=== PATIENT | female | born 1960 | race Caucasian/White ===

== ENCOUNTER 2021-03-26 12:32 | Emergency (ER) | payer OTHER ==
--- OUTSIDE RECORDS SUMMARY | 2021-03-26 12:38 | XMS REPORT | Continuity of Care Document ---
:1960 Author Organization [facility] t Address [address] [place] [address] Care Team Providers Name Role Phone Rosita Hung MD Primary Care Physician Steven Hull Attending Clinician ROSE Attending Clinician Unavailable Christ BUCKLEY Attending Clinician Unavailable Christ BUCKLEY Admitting Clinician Unavailable Payers Payer Name Policy Type Policy Number Effective Date Expiration Date S ource Problems Condition Condition Condition Status Onset Resolution Last Treating Co mments Source Name Details Category Date Date Treatment Clinician Date Other Other Disease Active [facility] hyper[facility]id hyperlipid 2-21 Charlene kes - emia emia 00:00: Medical 00 Hurt Pulmonary Pulmonary Disease Active [facility] HTN HTN 2- [facility] 00 Hurt Ex-smoker Ex-smoker Disease Active [facility] 2[facility]21 [facility] 00:[facility]: Medical 00 Hurt Anxiety Anxiety Disease Active [facility] 00 Center COPD COPD Disease Active [facility] (chronic (chronic 2- [facility] - obstructiv obstructiv 00:00: Me dical e e 00 Center pulmonary pulmonary disease) disease) Coronary Coronary Disease Active Overview: [facility] artery artery 2-09 S/p PCI [facility] - disease disease 00:00: stent to Medica l involving involving 00 RCA X Cent [place] 2(12/20/17[place] coronary coronary artery of artery of [place] heart with heart with unstable unstable angina angina pectoris pectoris Type 2 Type [address] [facility] diabetes diabetes 2- [facility] - mellitus mellitus 00:00: Medica l without without 00 Center complicati complicati on on Aortic Aortic Disease Active Overview: [facility] stenosis, stenosis, 2-05 S/p TAVR Charlene kes - severe severe 00:00: (12/22/17) Medical 00 Center Amnesia Problem Active 2019-07-02 Martinez ryan (finding) 14:05:30 l Amnesia [place] (finding) Active Problem 07/02/2019 [facility] Cerebrovas Problem Active 2019-07-02 M emoria cular 14:05:30 l accident [place] (disorder) Cerebrovas cular accident (disorder) Active Problem 07/02/2019 [facility] Depressive Problem Active 2019-07-02 M emoria disorder 14:05:30 l (disorder) Kelvin n Depressive disorder (disorder) Active Problem 07/02/2019 [facility] Diabetes Problem Active 2019-07-02 Mem oria mellitus 14:05:30 l type 2 Diabetes Kelvin n (disorder) mellitus type 2 (disorder) Active Problem 07/02/2019 [facility] Simple Problem Active 2019-07-02 Memor ia obesity 14:05:30 l (disorder) Simple Herm marylin obesity (disorder) Active Problem 07/02/2019 [facility] Allergies, Adverse Reactions, Alerts Allergy Allergy Status Severity Reaction(s) Onset Inactive Treating Comm ents Source Name Type Date Date Clinician codegraham DA Active [facility] 07-16 Clear 00:00: [place] 00 [facility] cortison DA Active [facility] e 07-16 Clear 00:00: [place] 00 [facility] No Known DA [facility] Allergie 4-29 Clear s 00:00: [place] 00 [facility] Codeine Propensi Active Hives [facility] ty to 2-05 [facility] - adverse 00:00: Medical reaction 00 Center s Hydrocor Propensi Active Hives [facility] tisone ty to 2-05 [facility] - adverse 00:00: Medical reaction 00 Center s Hydrocor Adverse Active rash [facility] tisone Reaction [facility] codeine codeine Active [facility] [place] hydrocor hydrocor Active Memori a tisone tisone l [place] Social History Social Habit Start Date Stop Date Quantity Comments Source Sex Assigned At [facility] britt - [facility] Cigarettes smoked 2018-01-17 2018-01-17 [facility] britt - current (pack per 00:00:00 00:00:00 Medical Center day) - Reported Tobacco use and 2018-01-17 2018-01-17 Never used [facility] Charlene de la torre - exposure 00:00:00 00:00:00 [facility] Alcohol intake 2018-01-17 2018-01-[address] [facility] [address] [place] es - 00:00:00 00:00:00 non-drinker of Medical Ce nter alcohol (finding) Smoking Status Start Date Stop Date Source Social History 2018-09-13 14:54:09 2018-09-13 14:54:09 [facility] [place] Current every day 2018-01-17 [facility] Medications Ordered Filled Start Stop Current Ordering Indication Dosage Frequency Signature Comments Components Source Medication Medication Date Date Medication? Clinician (SIG) Name Name Gabapentin Gabapentin Yes Anastasiia [address] [facility] 8-12 [place] as needed [facility] - 00:00: for pain [facility] Alendronate Alendronate 2020- No Anastasiia [address] [facility] Sodium Sodium 2-13 05-09 [place] 30 minutes [facility] - 00:00: 00:00 before the Memori a 00 :00 first l food, Outpati beverage ent or Clinics medicine of the day with plain water gabapentin 2017-11 Yes 100 mg = 1 M emoria 100 MG Oral 1-01 cap, PO, l Capsule 14:57: TID, # 90 Victorina nn 00 cap, 1 Refill(s) Lorazepam 2017-11 No See Memoria 0.5 MG Oral 0-11 Instructio l Tablet 14:36: ns, 1 tab Kelvin n [Ativan] 00 PO 1h prior to mri may repeat q15min if still anxious, # 5 tab, 0 Refill(s), called to pharmacy metFORMIN 2017-0 Yes 1000mg Take 1,[address] [facility] (GLUCOPHAGE 3-06 mg by [facility] - ) 1000 MG 08:40: mouth 2 Medic al tablet 58 (two) Center times daily with breakfast and dinner. clonazePAM 2018-0 Yes .5mg QD Take 0.[address] [facility] (KLONOPIN) 3-06 mg by [facility] - 0.5 MG 08:40: mouth Medical tablet 58 daily. Center clonazePAM 2017-0 Yes 1mg QD Take [address] (KLONOPIN) 3-06 by mouth [facility] - 1 MG tablet 08:40: nightly. Va dical 58 Center aspirin 81 2017-0 Yes 81mg QD Take [address] MG EC 3-06 by mouth [facility] - tablet 08:40: daily. Medical 58 Center fluticasone 2017-0 Yes 1{spray [address] [facility] (FLONASE) 3-06 } Nasal [facility] - 50 08:40: route as Medical mcg/actuati 58 needed for Ce nter on nasal Rhinitis. spray pantoprazol 2017-0 Yes 40mg Take [address] [facility] e 3-06 by mouth [facility] - (PROTONIX) 08:40: as needed. M edical 40 MG 58 Center tablet DULoxetine 2017- Yes 30mg QD Take [address] (CYMBALTA) 3-06 by mouth [facility] - 30 MG 08:40: daily. Medical capsule 58 Center DULoxetine 2017-0 Yes 60mg QD Take [address] (CYMBALTA) 3-06 by mouth [facility] - 60 MG 08:40: nightly. Medical capsule 58 Center atorvastati 2017-0 Yes 20mg QD Take [address] [facility] n (LIPITOR) 3-06 by mouth Luke s - 20 MG 08:40: daily. Medical tablet 58 Center sulfamethox 2017-0 Yes 1{tbl} Q.5D Take [address] azole-trime 3-06 tablet by Matias es - thoprim 08:40: mouth 2 Medical (BACTRIM 58 (two) Center DS) 800-160 times mg per daily. tablet Ferrous Ferrous Yes Anastasiia [address] Sulfate Sulfate 3-05 Millender Luke s - 00:00: [facility] Protonix Protonix Yes Anastasiia [address] [facility] 3-05 Mill[facility] - 00:[facility]: [facility]ics tamsulosin Yes .4mg Q.5D Take 1 [facility] (FLOMAX) 2-14 capsule [facility] - 0.4 mg Cp24 00:00: (0.4 mg Med ical 24 hr 00 total) by Center capsule mouth 2 (two) times daily. Cymbalta Cymbalta Yes Anastasiia [address] Mill[facility] Cymbalta Cymbalta Yes Anatsasiia [address] Millender [facility] Clonazepam Clonazepam Yes Anastasiia [address] [facility] Millender at bedtime [facility] Tylenol Tylenol Yes Anastasiia [address] [facility] Millender [facility] BusPIRone BusPIRone Yes Anastasiia as [facility] HCl HCl [facility] directed [facility] Fluticasone Fluticasone Yes Anastasiia [address] [address] Propionate Propionate Millender in each [facility] - nostril [facility] Metformin Metformin Yes Anastasiia [address] [facility] HCl HCl Millender with meals [facility] -81 Aspir-81 Yes Anastasiia [address] Millender (otc) [facility] Lipitor Lipitor Yes Anastasiia [address] [facility] Millender in [facility] - eveningy [facility] Amlodipine Amlodipine Yes Anastasiia [address] [facility] Besylate Besylate Millender Charlene kes - [facility] Queen Queen Yes Anastasiia [address] [facility] Millender as needed [facility] Avapro Avapro Yes Anastasiia [address] [facility] Millender [facility] Plavix Plavix Yes Anastasiia [address] [facility] Millender [facility] Ferrous Ferrous Yes Anastasiia [address] [facility] Sulfate Sulfate Millender [facility] Vital Signs Vital Name Observation Time Observation Value Comments Source BMI Calculated 2018-09-13 14:52:00 [facility] [place] Weight 2018-09-13 14:52:00 [facility] [place] Height 2018-09-13 14:52:00 162.56 cm [facility] [place] Systolic (mm Hg) 2018-09-13 14:52:00 Martinez chew [place] Diastolic (mm Hg) 2018-09-13 14:52:00 Mem orial [place] Heart Rate 2018-09-13 14:52:00 [facility] [place] Respitory Rate 2018-09-13 14:52:00 [facility]ori al [place] Procedures This patient has no known procedures. Encounters Start End Encounter Admission Attending Care Care Encounter Source Date/Time Date/Time Type Type Clinicians Facility Department ID 2021-01-27 2021-01-27 Outpatient [facility] [id number] [facility] 2021-01-27 2021-01-27 [facility] [id number] [facility] 2021-01-07 2021-01-07 [facility] [id number] [facility] 2021-01-05 2021-01-05 Outpatient [facility] [id number] [facility] 2020-10-07 2020-10-07 Out[facility] [id number] [facility] 2020-10-05 2020-10-05 Out[facility] [id number] [facility] 2020-09-28 2020-09-28 Outpatient [facility] [id number] [facility] 2020-09-24 2020-09-24 Outpatient [facility] [id number] [facility]00 [facility] Clin[facility] 2020-06-24 2020-06-24 [facility] [id number] [facility] 08:40:00 08:40:00 [facility] Medicine Outpati ent Clinics 2020-01-15 2020-01-15 [facility] [id number] [facility] 09:07:00 09:07:00 [facility] Medicine Outpati ent Clinics 2019-12-26 2019-12-26 [facility] [id number] [facility] 13:15:00 13:15:00 [facility] Medicine Outpati ent Clinics 2019-12-09 2019-12-09 [facility] [id number] [facility] 11:27:00 11:27:00 [facility] Medicine Outpati ent Clinics 2019-11-01 2019-11-01 [facility] [id number] 01:41:00 01:41:00 [facility] Medicine Outpati ent Clinics 2019-10-15 2019-10-15 [facility] [id number] [facility] 09:02:00 09:02:00 [facility] Medicine Outpati ent Clinics 2019-08-27 2019-08-27 [facility] [id number] 09:40:00 09:40:00 [facility] Medicine Outpati ent Clinics 2019-05-27 2019-05-27 [facility] [id number] 10:20:00 10:20:00 [facility] Medicine Outpati ent Clinics 2019-02-25 2019-02-25 [facility] [id number] [facility] 11:00:00 11:00:00 [facility] Medicine Outpati ent Clinics 2019-02-11 2019-02-11 [facility] [id number] [facility] 11:22:00 11:22:00 t [facility] Medicine Medicine Outpati ent Clinics 2018-12-13 2018-12-13 [id number] 09:00:00 09:00:00 Pete 03 Steven 2018-11-26 2018-11-26 [facility] [id number] [facility] 21:09:00 21:09:00 t [facility] Medicine Outpati ent Clinics 2018-11-26 2018-11-26 [facility] [id number] 11:15:00 11:15:00 [facility] Medicine Outpati ent Clinics 2018-11-17 2018-11-18 Out[facility] [id number] 11:01:00 23:59:59 00 2018-09-13 2018-09-13 Outpatient ANASTASIIA [facility] [id number] 09:45:00 23:59:59 Pete Bimal Harris 2018-08-22 2018-08-22 [facility] [id number] 08:57:00 08:57:00 t [facility] Medicine Outpati ent Clinics 2018-08-21 2018-08-21 [facility] [id number] 10:30:00 10:30:00 t [facility] Medicine Outpati ent Clinics 2018-05-22 2018-05-22 [facility] [id number] 11:37:00 11:37:00 t [facility] Medicine Medicine Outpati ent Clinics 2018-05-21 2018-05-21 [facility] [id number] [address] 10:15:00 10:15:00 t [facility] Medicine Outpati ent Clinics 2018-02-20 2018-02-20 [facility] [id number] [address] 19:19:00 19:19:00 t [facility] Medicine Outpati ent Clinics 2018-02-19 2018-02-19 Outpatient [facility] [id number] 10:30:00 10:30:00 [facility] ent Clinics Results Test Description Test Time Test Comments Results Result Comments Source GLUBED 2020-09-14 17:39:00 Test Item Value Reference Range Interpretation Comme nts GLUBED (test code = GLUBED) 118 MG/DL 70-110 H Performed by certified 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 [facility] [id number] 11:44:00 Test Item Value Reference Range Interpretation Comments GLUBED (test code = 115 MG/DL 70-110 H Performe d by certified GLUBED) 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 [facility] Novel Coronavirus 2018 [id number] 23:56:00 Test Item Value Reference Range Interpretation Comments Novel Coronavirus Negative Negative Positive r esults are 2019 Inhouse (test indicativ e of the presence code = COVNONPUI) ofSARS-CoV -2 RNA, clinical correlation wit h patient historyand othe r diagnostic info rmation is necessary to determinepatien t infection status. Positiv e results do not rule out bacterial infection or co -infection with other viru ses. Negative result s do not preclude SARS-C oV-2 infection andsh ould not be used as the cade e basis for patient managementdecis ions. Negative result s must be combined with otherclinical observations, p atient history, and epidemiological information . Detection of SARS-CoV-2 RNA may be affe cted bysample collec tion methods, storag e conditions, and /or stageof infection. Sylvia l RNA mutations, vacc inations, antiviraltherap eutics, antibiotics, chemotherapeuti c orimmunosuppres keiko drugs have not been e valuated for effectson d etection. Results are for the identification of SARS-CoV-2 RNA usingthe Worley M2000 Sy stem under the FDA Emergen cy UseAuthorizatio n. The testing is perf ormed by personneltraine d in the procedures for the Worley M2000 molecular diagnostic SARS-CoV-2 assa y in vitro. BASIC METABOLIC [id number] 10:34:00 Test Item Value Reference Range Interpretation Comments SODIUM (test code = NA) 134 mEq/L 134-147 N POTASSIUM (test code = 4.6 mEq/L 3.4-5.0 N K) CHLORIDE (test code = 102 mEq/L 100-108 N CL) CARBON DIOXIDE (test 23 mEq/L 21-33 N code = CO2) ANION GAP (test code = 13 0-20 N GAP) GLUCOSE (test code = 127 mg/dL 70-110 H GLU) BLOOD UREA NITROGEN 21 mg/dL 7-18 H (test code = BUN) GLOMERULAR FILTRATION 41.5 80-90 L Units of measure = RATE (test code = GFR) ml/mi n/1.73 m2 CREATININE (test code = 1.3 mg/dL 0.6-1.3 N CREAT) CALCIUM (test code = 9.0 mg/dL 8.0-10.5 N CA) PROTHROMBIN [id number] 10:28:00 Test Item Value Reference Range Interpretation Comments PROTHROMBIN TIME 12.1 SECONDS 9.3-12.9 N PATIENT (test code = PTP) INTERNATIONAL NORMAL 1.1 0.8-1.2 N TARGET RATIO (test code = INR BY IN DICATION INR) Indication INR1. Prophyl axis of venous thrombos is 2.0 - 3. 0 (orthopedic javi betty), Prophylaxis of venous thrombos is (other than hig h-risk surgery), Ines tment of Deep Vein Thrombosis/Pulm onary Embolism, Preve ntion of systemic emb olism - Tissue heart va lves, Acute Myocardia l Infarction (to prevent systemic embo lism), Valvular heart disease, Atri al Fibrillation, Bileaflet mecha nical valve in aortic position.2. Mec hanical prosthetic valv es (high risk), 2.5 - 3.5 Presence of Lupus Anticoagu lant or Antiphospholi pid Antibodies, Pre vention of systemic e mbolism - Acute Myocard ial Infarction (t o prevent recurre nt infarct). THROMBOPLASTIN TIME [id number] 10:28:00 Test Item Value Reference Range Interpretation Comments THROMBOPLASTIN TIME 38.5 Seconds 25.0-39.5 N Ther apeutic PARTIAL (test code = Range: 50.4 - 88.3 PTT) Seconds Effective 02/26/2019 CBC W/AUTO [id number] 10:19:00 Test Item Value Reference Range Interpretation Comments WHITE BLOOD CELL (test code = 9.3 x10 3/uL 4.5-11.0 N WBC) RED BLOOD CELL (test code = 3.66 x10 6/uL 3.54-5.02 N RBC) HEMOGLOBIN (test code = HGB) 7.9 g/dL 11.0-15.0 L HEMATOCRIT (test code = HCT) 29.0 % 33.0-45.0 L MEAN CELL VOLUME (test code = 79.2 fL 81.0-99.0 L MCV) MEAN CELL HGB (test code = MCH) 21.6 pg 27.0-33.0 L MEAN CELL HGB CONCETRATION 27.2 g/dL 33.0-37.0 L (test code = MCHC) RED CELL DISTRIBUTION WIDTH CV 19.3 % 11.5-14.5 H (test code = RDW) RED CELL DISTRIBUTION WIDTH SD 55.1 fL 37.0-54.0 H (test code = RDW-SD) PLATELET COUNT (test code = 227 x10 3/uL 150-400 N PLT) MEAN PLATELET VOLUME (test code 10.1 fL 7.0-9.0 H = MPV) NEUTROPHIL % (test code = NT%) 73.2 % 56.0-77.0 N IMMATURE GRANULOCYTE % (test 0.6 % 0.0-2.0 N code = IG%) LYMPHOCYTE % (test code = LY%) 15.8 % 14.0-32.0 N MONOCYTE % (test code = MO%) 6.3 % 4.8-9.0 N EOSINOPHIL % (test code = EO%) 3.3 % 0.3-3.7 N BASOPHIL % (test code = BA%) 0.8 % 0.0-2.0 N NUCLEATED RBC % (test code = 0.0 % 0-0 N NRBC%) NEUTROPHIL # (test code = NT#) 6.79 x10 3/uL 2.0-7.6 N IMMATURE GRANULOCYTE # (test 0.06 x10 3/uL 0.00-0.03 H code = IG#) LYMPHOCYTE # (test code = LY#) 1.47 x10 3/uL 1.0-3.8 N MONOCYTE # (test code = MO#) 0.58 x10 3/uL 0.1-0.8 N EOSINOPHIL # (test code = EO#) 0.31 x10 3/uL 0.0-0.2 H BASOPHIL # (test code = BA#) 0.07 x10 3/uL 0.0-0.2 N NUCLEATED RBC # (test code = 0.00 x10 3/uL 0.0-0.1 N NRBC#) MANUAL DIFF REQUIRED (test code NO = MDIFF) CBC W/AUTO [id number] 10:18:00 Test Item Value Reference Range Interpretation Comments WHITE BLOOD CELL (test code = x10 3/uL 4.5-11.0 WBC) RED BLOOD CELL (test code = RBC) x10 6/uL 3.54-5.02 HEMOGLOBIN (test code = HGB) g/dL 11.0-15.0 HEMATOCRIT (test code = HCT) % 33.0-45.0 MEAN CELL VOLUME (test code = fL 81.0-99.0 MCV) MEAN CELL HGB (test code = MCH) pg 27.0-33.0 MEAN CELL HGB CONCETRATION (test g/dL 33.0-37.0 code = MCHC) RED CELL DISTRIBUTION WIDTH CV % 11.5-14.5 (test code = RDW) PLATELET COUNT (test code = PLT) 227 x10 3/uL 150-400 N NEUTROPHIL % (test code = NT%) % 56.0-77.0 LYMPHOCYTE % (test code = LY%) % 14.0-32.0 NEUTROPHIL # (test code = NT#) x10 3/uL 2.0-7.6 LYMPHOCYTE # (test code = LY#) x10 3/uL 1.0-3.8 MANUAL DIFF REQUIRED (test code = MDIFF) - XR CHEST 2 [id number] 10:06:00 [facility] : 1960 Sex: F FAX: Blake Oconnell MD [phone] [place]: St: PRE FAX: Anastasiia Choi [phone] Name: JAMEY VAZQUEZ [facility] : 1960ge/S: [address] [place] [address] Blvd Unit #: [id number] Loc: [place] [address] Phys: Blake Chandler MD Acct: [id number] Dis Date: Status: PRE NHC PHONE #:[phone] Exam Date: 09/10/2020 0948 FAX #: [phone] Reason: PREOP EXAMS: CPT CODE: [id number] XR CHEST 2 V [id number] EXAM: PA and lateral chest. EXAM DATE: September 10, 2020 CLINICAL HISTORY: PREOP COMPARISON: July 16, 2020 Heart size is within normal limits. Atherosclerotic calcifications and tortuosity of the intrathoracic aorta is identified. Transcatheter aortic valve replacement are identified. Calcified azygous and perihilar lymph nodes are noted. . Calcified granuloma noted in the right lateral lung. The lungs are otherwise unremarkable. Mild elevation of the right hemidiaphragm is unchanged.. Osseous structures demonstrate no acute abnormalities. IMPRESSION: No evidence of acute cardiopulmonary disease. at 1006 Reported and signed by: Connie Felix M.D. CC: Blake Chandler MD; Anastasiia Hung MD Technologist: RT Castillo(R) Trnscrd Date/Time/By: 09/10/2020 (1006) : By: MadeleineCER Orig Print D/T: S: 09/10/2020 (1009) PAGE 1 Signed Report SURGICAL PATH [id number] 20:50:00 RUN DATE: 07/23/20 [facility] *LIVE* PAGE 1 RUN TIME: 2049 Specimen Inquiry RUN USER: INTERFACE PATIENT: JAMEY VAZQUEZ LOC: [place] U #: [id number] AGE/SX: 59/F [place] [facility] [place]20REG DR: Man Santana : 56 BED: 1 DIS: 07/22/20 STATUS: DIS IN TLOC: SPEC #: [id number] RECD: 07/22/20 STATUS: DAMION MORALEZ #: [id number] DALY: 07/22/[address]: Man Santana MD ENTERED: 07/23/20 SP TYPE: SURG SPEC OTHR DR: DOES_NOT KNOW Millender,Anastasiia L MDORDERED: GROSS AND MICRO CODES: [id number] - ARTERY, NOS COPIES TO: DOES_NOT KNOW Man Santana MD [address] [place] [address] [email or web address] Anastasiia Hung MD [address] [facility] [address] [place] [address] PROCEDURES: GROSS AND MICRO (Incomplete) TISSUES: 1. ARTERY, NOS - Artery, left common femoral, plaque, seg FINAL DIAGNOSIS Artery, left common femoral, plaque, segment: Fibrous atherosclerotic plaque with calcifications. GROSS AND MICROSCOPIC GROSS DESCRIPTION: Received in formalin and labeled "plaque"is one irregular fragment of atherosclerotic material measuring 3.5 x 0.7 x 0.5 cm. Instrument Installer sections after decal . MICROSCOPIC EXAMINATION: The fibrous material contains cholesterol clefts and focal calcifications. POST-OP DIAGNOSIS Peripheral vascular disease CONTINUED ON NEXT PAGE RUN DATE: 07/23/20 [facility] *LIVE* PAGE 2 RUN TIME: 2049 Specimen Inquiry RUN USER: INTERFACE SPEC #: [id number] PATIENT: JAMEY VAZQUEZ #[id number] (Continued) PRE-OP DIAGNOSIS Peripheral vascular disease Signed SIGNATURE ON FILE David Garcia MD 07/23/202049 END OF REPORT BASIC METABOLIC [id number] 15:43:00 Test Item Value Reference Range Interpretation Comments SODIUM (test code = NA) 136 mEq/L 134-147 N POTASSIUM (test code = 4.3 mEq/L 3.4-5.0 N K) CHLORIDE (test code = 101 mEq/L 100-108 N CL) CARBON DIOXIDE (test 27 mEq/L 21-33 N code = CO2) ANION GAP (test code = 13 0-20 N GAP) GLUCOSE (test code = 189 mg/dL 70-110 H GLU) BLOOD UREA NITROGEN 19 mg/dL 7-18 H (test code = BUN) GLOMERULAR FILTRATION 45.7 80-90 L Units of measure = RATE (test code = GFR) ml/mi n/1.73 m2 CREATININE (test code = 1.2 mg/dL 0.6-1.3 N CREAT) CALCIUM (test code = 9.2 mg/dL 8.0-10.5 N CA) [id number] 12:58:00 Test Item Value Reference Range Interpretation Comments GLUBED (test code = 111 MG/DL 70-110 H Performe d by certified GLUBED) 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 [facility] BASIC METABOLIC [id number] 04:08:00 Test Item Value Reference Range Interpretation Comments SODIUM (test code = NA) 138 mEq/L 134-147 N POTASSIUM (test code = 5.1 mEq/L 3.4-5.0 H K) CHLORIDE (test code = 105 mEq/L 100-108 N CL) CARBON DIOXIDE (test 25 mEq/L 21-33 N code = CO2) ANION GAP (test code = 13 0-20 N GAP) GLUCOSE (test code = 113 mg/dL 70-110 H GLU) BLOOD UREA NITROGEN 16 mg/dL 7-18 N (test code = BUN) GLOMERULAR FILTRATION 45.7 80-90 L Units of measure = RATE (test code = GFR) ml/mi n/1.73 m2 CREATININE (test code = 1.2 mg/dL 0.6-1.3 N CREAT) CALCIUM (test code = 8.9 mg/dL 8.0-10.5 N CA) CBC W/AUTO [id number] 03:55:00 Test Item Value Reference Range Interpretation Comments WHITE BLOOD CELL (test code = 7.73 x10 3/uL 4.5-11.0 N WBC) RED BLOOD CELL (test code = 3.77 x10 6/uL 3.54-5.02 N RBC) HEMOGLOBIN (test code = HGB) 8.6 g/dL 11.0-15.0 L HEMATOCRIT (test code = HCT) 30.3 % 33.0-45.0 L MEAN CELL VOLUME (test code = 80.4 fL 81.0-99.0 L MCV) MEAN CELL HGB (test code = MCH) 22.8 pg 27.0-33.0 L MEAN CELL HGB CONCETRATION 28.4 g/dL 33.0-37.0 L (test code = MCHC) RED CELL DISTRIBUTION WIDTH CV 18.5 % 11.5-14.5 H (test code = RDW) RED CELL DISTRIBUTION WIDTH SD 54.2 fL 37.0-54.0 H (test code = RDW-SD) PLATELET COUNT (test code = 170 x10 3/uL 150-400 N PLT) MEAN PLATELET VOLUME (test code 10.1 fL 7.0-9.0 H = MPV) NEUTROPHIL % (test code = NT%) 73.0 % 56.0-77.0 N IMMATURE GRANULOCYTE % (test 0.5 % 0.0-2.0 N code = IG%) LYMPHOCYTE % (test code = LY%) 15.3 % 14.0-32.0 N MONOCYTE % (test code = MO%) 8.0 % 4.8-9.0 N EOSINOPHIL % (test code = EO%) 2.6 % 0.3-3.7 N BASOPHIL % (test code = BA%) 0.6 % 0.0-2.0 N NUCLEATED RBC % (test code = 0.0 % 0-0 N NRBC%) NEUTROPHIL # (test code = NT#) 5.64 x10 3/uL 2.0-7.6 N IMMATURE GRANULOCYTE # (test 0.04 x10 3/uL 0.00-0.03 H code = IG#) LYMPHOCYTE # (test code = LY#) 1.18 x10 3/uL 1.0-3.8 N MONOCYTE # (test code = MO#) 0.62 x10 3/uL 0.1-0.8 N EOSINOPHIL # (test code = EO#) 0.20 x10 3/uL 0.0-0.2 N BASOPHIL # (test code = BA#) 0.05 x10 3/uL 0.0-0.2 N NUCLEATED RBC # (test code = 0.00 x10 3/uL 0.0-0.1 N NRBC#) MANUAL DIFF REQUIRED (test code NO = MDIFF) [id number] 21:15:00 Test Item Value Reference Range Interpretation Comments GLUBED (test code = 155 MG/DL 70-110 H Performe d by certified GLUBED) 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 - XR FLUOROSCOPY 0-60 [id number] 15:00:00 FAX: Man Pettit [phone] [place]: St: ADM FAX: Blake Oconnell MD [phone] FAX: Anastasiia Valadez [phone] Name: JAMEY VAZQUEZ : 1960 Age/S: 59/F [address] [place] [address] Unit #: [id number] Loc: [place] [address] Phys: Blake Chandler MD Acct: [id number] Dis Date: Status: ADM IN PHONE #: [phone] Exam Date: 07/21/2020 1300 FAX #: [phone] Reason: PVD EXAMS: CPT CODE: [id number] XR FLUOROSCOPY 0-60 MIN 56892 Patient Name: JAMEY VAZQUEZ : 1960; Age: 59 years y/o Female MR: [id number] Study: - XR FLUOROSCOPY 0-60 MIN 07/21/2020 10:45 AM Ordering Physician: Blake Chandler MD Clinical Indication: ; PVD Comparison:None FINDINGS: Multiple spot fluoroscopic images from carotid endarterectomy are submitted for evaluation. Fluoroscopy Time: 11 seconds Reference Air Kerma: 4.2 mGy IMPRESSION: Please refer to the official procedure report for complete assessment. SL: [id number] at 1500 Reported and signed by: Gal Sharma M.D. 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 [facility] [id number] 11:59:00 Test Item Value Reference Range Interpretation Comments ACT-ISTAT (test code 230 SEC 74-137 H Perform ed by certified = ACTI) 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 [facility] [id number] 07:56:00 Test Item Value Reference Range Interpretation Comments GLUBED (test code = 122 MG/DL 70-110 H Performe d by certified GLUBED) 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 [facility] CBC W/AUTO [id number] 14:42:00 Test Item Value Reference Range Interpretation Comments WHITE BLOOD CELL (test code = 9.71 x10 3/uL 4.5-11.0 N WBC) RED BLOOD CELL (test code = 4.35 x10 6/uL 3.54-5.02 N RBC) HEMOGLOBIN (test code = HGB) 10.0 g/dL 11.0-15.0 L HEMATOCRIT (test code = HCT) 35.0 % 33.0-45.0 N MEAN CELL VOLUME (test code = 80.5 fL 81.0-99.0 L MCV) MEAN CELL HGB (test code = MCH) 23.0 pg 27.0-33.0 L MEAN CELL HGB CONCETRATION 28.6 g/dL 33.0-37.0 L (test code = MCHC) RED CELL DISTRIBUTION WIDTH CV 19.0 % 11.5-14.5 H (test code = RDW) RED CELL DISTRIBUTION WIDTH SD 55.4 fL 37.0-54.0 H (test code = RDW-SD) PLATELET COUNT (test code = 207 x10 3/uL 150-400 N PLT) IMMATURE PLATELET FRACTION 3.5 % 0.9-11.2 N (test code = IPF) MEAN PLATELET VOLUME (test code 10.5 fL 7.0-9.0 H = MPV) NEUTROPHIL % (test code = NT%) 76.9 % 56.0-77.0 N IMMATURE GRANULOCYTE % (test 0.7 % 0.0-2.0 N code = IG%) LYMPHOCYTE % (test code = LY%) 12.8 % 14.0-32.0 L MONOCYTE % (test code = MO%) 7.2 % 4.8-9.0 N EOSINOPHIL % (test code = EO%) 1.9 % 0.3-3.7 N BASOPHIL % (test code = BA%) 0.5 % 0.0-2.0 N NUCLEATED RBC % (test code = 0.0 % 0-0 N NRBC%) NEUTROPHIL # (test code = NT#) 7.47 x10 3/uL 2.0-7.6 N IMMATURE GRANULOCYTE # (test 0.07 x10 3/uL 0.00-0.03 H code = IG#) LYMPHOCYTE # (test code = LY#) 1.24 x10 3/uL 1.0-3.8 N MONOCYTE # (test code = MO#) 0.70 x10 3/uL 0.1-0.8 N EOSINOPHIL # (test code = EO#) 0.18 x10 3/uL 0.0-0.2 N BASOPHIL # (test code = BA#) 0.05 x10 3/uL 0.0-0.2 N NUCLEATED RBC # (test code = 0.00 x10 3/uL 0.0-0.1 N NRBC#) MANUAL DIFF REQUIRED (test code NO = MDIFF) RBC [id number] 14:42:00 Test Item Value Reference Range Interpretation Comments POLYCHROMASIA (test code = POLC) 1+ POIKILOCYTOSIS (test code = POIK) SLIGHT ANISOCYTOSIS (test code = ANISO) 1+ MICROCYTOSIS (test code = MICR) 1+ OVALOCYTES (test code = OVAL) FEW COVID 19 Asymptomatic IH [id number] 13:59:00 Test Item Value Reference Range Interpretation Comments COVID 19 Asymptomatic Negative Negative A nega tive result is IH AG (test code = presumpti ve and should COVNONPUIAG) be confirmedwit h an FDA authorized mole cular assay, if neces kolton forpatient mariam gement.A positive result does not rule out co-inf ections withother patho gens.This test detects dimas th viable (live) and non-viable,SARS -CoV, and SARS-CoV-2. Aisha t performance dep ends on theamount of vi felicia (antigen) in th e sample.This aisha t has not been FDA cleare d or approved; the t est hasbeen authori zed by FDA under an Em ergency Use Authorizati on(EUA) for use by labo ratories certified under the CLIA thatmeet the requirements to perform moderate, high or waivedcomplexit y tests. - XR CHEST 2 [id number] 13:50:00 FAX: Blake Oconnell MD [phone] [place]: St: PRE FAX: Anastasiia Valadez [phone] Name: JAEMY VAZQUEZ [facility] : 1960 Age/S: 59/F [address] [place] [address] Unit #: [id number] Loc: [place] [address] Phys: Blake Chandler MD Acct: [id number] Dis Date: Status: PRE [facility] PHONE #: [phone] Exam Date: 07/16/2020 1317 FAX #: [phone] Reason: PREOP EXAMS: CPT CODE: [id number] XR CHEST 2 V 54486 CLINICAL HISTORY: PREOP COMPARISON: NONE PA and lateral films of the chest demonstrate aortic valve prosthesis. Heart size is normal. Atheromatous classifications are present in thoracic aorta. Lung wiggins demonstrate no evidence of pneumonia or congestive failure. Mild elevation of right hemidiaphragm is seen. Calcified granuloma is present in the right lung. There is also, calcified azygos lymph nodes identified. IMPRESSION:No evidence of pneumonia or congestive failure is seen. at 1350 Reported and signed by: Dario Fair M.D. CC: Blake Chandler MD; Anastasiia Hung MD Technologist: Deborah Wallace RT(Jocelin)(M) Trnscrd Date/Time/By: 07/16/2020 (1350) : By: Mikala Orig Print D/T: S: 07/16/2020 (6865) PAGE 1 Signed ReportBASIC METABOLIC [id number] 12:51:00 Test Item Value Reference Range Interpretation Comments SODIUM (test code = NA) 135 mEq/L 134-147 N POTASSIUM (test code = 5.4 mEq/L 3.4-5.0 H K) CHLORIDE (test code = 102 mEq/L 100-108 N CL) CARBON DIOXIDE (test 25 mEq/L 21-33 N code = CO2) ANION GAP (test code = 13 0-20 N GAP) GLUCOSE (test code = 195 mg/dL 70-110 H GLU) BLOOD UREA NITROGEN 21 mg/dL 7-18 H (test code = BUN) GLOMERULAR FILTRATION 41.6 80-90 L Units of measure = RATE (test code = GFR) ml/mi n/1.73 m2 CREATININE (test code = 1.3 mg/dL 0.6-1.3 N CREAT) CALCIUM (test code = 9.3 mg/dL 8.0-10.5 N CA) CBC W/AUTO [id number] 12:44:00 Test Item Value Reference Range Interpretation Comments WHITE BLOOD CELL (test code = 9.71 x10 3/uL 4.5-11.0 N WBC) RED BLOOD CELL (test code = 4.35 x10 6/uL 3.54-5.02 N RBC) HEMOGLOBIN (test code = HGB) 10.0 g/dL 11.0-15.0 L HEMATOCRIT (test code = HCT) 35.0 % 33.0-45.0 N MEAN CELL VOLUME (test code = 80.5 fL 81.0-99.0 L MCV) MEAN CELL HGB (test code = MCH) 23.0 pg 27.0-33.0 L MEAN CELL HGB CONCETRATION 28.6 g/dL 33.0-37.0 L (test code = MCHC) RED CELL DISTRIBUTION WIDTH CV 19.0 % 11.5-14.5 H (test code = RDW) RED CELL DISTRIBUTION WIDTH SD 55.4 fL 37.0-54.0 H (test code = RDW-SD) PLATELET COUNT (test code = 207 x10 3/uL 150-400 N PLT) IMMATURE PLATELET FRACTION 3.5 % 0.9-11.2 N (test code = IPF) MEAN PLATELET VOLUME (test code 10.5 fL 7.0-9.0 H = MPV) NEUTROPHIL % (test code = NT%) 76.9 % 56.0-77.0 N IMMATURE GRANULOCYTE % (test 0.7 % 0.0-2.0 N code = IG%) LYMPHOCYTE % (test code = LY%) 12.8 % 14.0-32.0 L MONOCYTE % (test code = MO%) 7.2 % 4.8-9.0 N EOSINOPHIL % (test code = EO%) 1.9 % 0.3-3.7 N BASOPHIL % (test code = BA%) 0.5 % 0.0-2.0 N NUCLEATED RBC % (test code = 0.0 % 0-0 N NRBC%) NEUTROPHIL # (test code = NT#) 7.47 x10 3/uL 2.0-7.6 N IMMATURE GRANULOCYTE # (test 0.07 x10 3/uL 0.00-0.03 H code = IG#) LYMPHOCYTE # (test code = LY#) 1.24 x10 3/uL 1.0-3.8 N MONOCYTE # (test code = MO#) 0.70 x10 3/uL 0.1-0.8 N EOSINOPHIL # (test code = EO#) 0.18 x10 3/uL 0.0-0.2 N BASOPHIL # (test code = BA#) 0.05 x10 3/uL 0.0-0.2 N NUCLEATED RBC # (test code = 0.00 x10 3/uL 0.0-0.1 N NRBC#) MANUAL DIFF REQUIRED (test code NO = MDIFF) RBC [id number] 12:44:00 Test Item Value Reference Range Interpretation Comments ANISOCYTOSIS (test code = ANISO) CBC W/AUTO [id number] 12:44:00 Test Item Value Reference Range Interpretation Comments WHITE BLOOD CELL (test code = 9.71 x10 3/uL 4.5-11.0 N WBC) RED BLOOD CELL (test code = 4.35 x10 6/uL 3.54-5.02 N RBC) HEMOGLOBIN (test code = HGB) 10.0 g/dL 11.0-15.0 L HEMATOCRIT (test code = HCT) 35.0 % 33.0-45.0 N MEAN CELL VOLUME (test code = 80.5 fL 81.0-99.0 L MCV) MEAN CELL HGB (test code = MCH) 23.0 pg 27.0-33.0 L MEAN CELL HGB CONCETRATION 28.6 g/dL 33.0-37.0 L (test code = MCHC) RED CELL DISTRIBUTION WIDTH CV 19.0 % 11.5-14.5 H (test code = RDW) RED CELL DISTRIBUTION WIDTH SD 55.4 fL 37.0-54.0 H (test code = RDW-SD) PLATELET COUNT (test code = 207 x10 3/uL 150-400 N PLT) IMMATURE PLATELET FRACTION 3.5 % 0.9-11.2 N (test code = IPF) MEAN PLATELET VOLUME (test code 10.5 fL 7.0-9.0 H = MPV) NEUTROPHIL % (test code = NT%) 76.9 % 56.0-77.0 N IMMATURE GRANULOCYTE % (test 0.7 % 0.0-2.0 N code = IG%) LYMPHOCYTE % (test code = LY%) 12.8 % 14.0-32.0 L MONOCYTE % (test code = MO%) 7.2 % 4.8-9.0 N EOSINOPHIL % (test code = EO%) 1.9 % 0.3-3.7 N BASOPHIL % (test code = BA%) 0.5 % 0.0-2.0 N NUCLEATED RBC % (test code = 0.0 % 0-0 N NRBC%) NEUTROPHIL # (test code = NT#) 7.47 x10 3/uL 2.0-7.6 N IMMATURE GRANULOCYTE # (test 0.07 x10 3/uL 0.00-0.03 H code = IG#) LYMPHOCYTE # (test code = LY#) 1.24 x10 3/uL 1.0-3.8 N MONOCYTE # (test code = MO#) 0.70 x10 3/uL 0.1-0.8 N EOSINOPHIL # (test code = EO#) 0.18 x10 3/uL 0.0-0.2 N BASOPHIL # (test code = BA#) 0.05 x10 3/uL 0.0-0.2 N NUCLEATED RBC # (test code = 0.00 x10 3/uL 0.0-0.1 N NRBC#) MANUAL DIFF REQUIRED (test code NO = MDIFF) RBC [id number] 12:44:00 Test Item Value Reference Range Interpretation Comments ANISOCYTOSIS (test code = ANISO) PROTHROMBIN [id number] 12:26:00 Test Item Value Reference Range Interpretation Comments PROTHROMBIN TIME 12.3 SECONDS 9.3-12.9 N PATIENT (test code = PTP) INTERNATIONAL NORMAL 1.1 0.8-1.2 N TARGET RATIO (test code = INR BY IN DICATION INR) Indication INR1. Prophyl axis of venous thrombos is 2.0 - 3. 0 (orthopedic javi betty), Prophylaxis of venous thrombos is (other than hig h-risk surgery), Ines tment of Deep Vein Thrombosis/Pulm onary Embolism, Preve ntion of systemic emb olism - Tissue heart va lves, Acute Myocardia l Infarction (to prevent systemic embo lism), Valvular heart disease, Atri al Fibrillation, Bileaflet mecha nical valve in aortic position.2. Mec hanical prosthetic valv es (high risk), 2.5 - 3.5 Presence of Lupus Anticoagu lant or Antiphospholi pid Antibodies, Pre vention of systemic e mbolism - Acute Myocard ial Infarction (t o prevent recurre nt infarct). THROMBOPLASTIN TIME [id number] 12:26:00 Test Item Value Reference Range Interpretation Comments THROMBOPLASTIN TIME 41.4 Seconds 25.0-39.5 H Ther apeutic PARTIAL (test code = Range: 50.4 - 88.3 PTT) Seconds Effective 02/26/2019 BASIC METABOLIC [id number] 10:35:00 Test Item Value Reference Range Interpretation Comments SODIUM (test code = NA) 135 mEq/L 134-147 N POTASSIUM (test code = 4.3 mEq/L 3.4-5.0 N K) CHLORIDE (test code = 100 mEq/L 100-108 N CL) CARBON DIOXIDE (test 27 mEq/L 21-33 N code = CO2) ANION GAP (test code = 13 0-20 N GAP) GLUCOSE (test code = 124 mg/dL 70-110 H GLU) BLOOD UREA NITROGEN 20 mg/dL 7-18 H (test code = BUN) GLOMERULAR FILTRATION 50.5 80-90 L Units of measure = RATE (test code = GFR) ml/mi n/1.73 m2 CREATININE (test code = 1.1 mg/dL 0.6-1.3 N CREAT) CALCIUM (test code = 9.0 mg/dL 8.0-10.5 N CA) CBC W/AUTO [id number] 10:15:00 Test Item Value Reference Range Interpretation Comments WHITE BLOOD CELL (test code = 7.82 x10 3/uL 4.5-11.0 N WBC) RED BLOOD CELL (test code = 4.16 x10 6/uL 3.54-5.02 N RBC) HEMOGLOBIN (test code = HGB) 9.6 g/dL 11.0-15.0 L HEMATOCRIT (test code = HCT) 32.6 % 33.0-45.0 L MEAN CELL VOLUME (test code = 78.4 fL 81.0-99.0 L MCV) MEAN CELL HGB (test code = MCH) 23.1 pg 27.0-33.0 L MEAN CELL HGB CONCETRATION 29.4 g/dL 33.0-37.0 L (test code = MCHC) RED CELL DISTRIBUTION WIDTH CV 17.9 % 11.5-14.5 H (test code = RDW) RED CELL DISTRIBUTION WIDTH SD 50.7 fL 37.0-54.0 N (test code = RDW-SD) PLATELET COUNT (test code = 179 x10 3/uL 150-400 N PLT) MEAN PLATELET VOLUME (test code 10.7 fL 7.0-9.0 H = MPV) NEUTROPHIL % (test code = NT%) 77.8 % 56.0-77.0 H IMMATURE GRANULOCYTE % (test 0.6 % 0.0-2.0 N code = IG%) LYMPHOCYTE % (test code = LY%) 11.4 % 14.0-32.0 L MONOCYTE % (test code = MO%) 7.7 % 4.8-9.0 N EOSINOPHIL % (test code = EO%) 1.9 % 0.3-3.7 N BASOPHIL % (test code = BA%) 0.6 % 0.0-2.0 N NUCLEATED RBC % (test code = 0.0 % 0-0 N NRBC%) NEUTROPHIL # (test code = NT#) 6.08 x10 3/uL 2.0-7.6 N IMMATURE GRANULOCYTE # (test 0.05 x10 3/uL 0.00-0.03 H code = IG#) LYMPHOCYTE # (test code = LY#) 0.89 x10 3/uL 1.0-3.8 L MONOCYTE # (test code = MO#) 0.60 x10 3/uL 0.1-0.8 N EOSINOPHIL # (test code = EO#) 0.15 x10 3/uL 0.0-0.2 N BASOPHIL # (test code = BA#) 0.05 x10 3/uL 0.0-0.2 N NUCLEATED RBC # (test code = 0.00 x10 3/uL 0.0-0.1 N NRBC#) MANUAL DIFF REQUIRED (test code NO = MDIFF) URINALYSIS [id number] 10:05:00 Test Item Value Reference Range Interpretation Comments UA COLOR (test code = COLU) YELLOW YEL/STRAW UA APPEARANCE (test code = SL CLOUDY CLEAR APPU) UA GLUCOSE DIPSTICK (test code NEGATIVE NEGATIVE = DGLUU) UA BILIRUBIN DIPSTICK (test NEGATIVE NEGATIVE code = BILU) UA KETONE DIPSTICK (test code = NEGATIVE NEGATIVE KETU) UA SPECIFIC GRAVITY (test code 1.011 1.005-1.030 N = SGU) UA BLOOD DIPSTICK (test code = NEGATIVE NEGATIVE FAY) UA PH DIPSTICK (test code = 6.0 5.0-7.0 N JOHN) UA PROTEIN DIPSTICK (test code NEGATIVE NEGATIVE = PROU) UA UROBILINIOGEN DIPSTICK (test 4.0 mg/dL 0.2-1.0 A code = URO) UA NITRITE DIPSTICK (test code NEGATIVE NEGATIVE = ANIYAH) UA LEUKOCYTE ESTERASE DIPSTICK 3+ NEGATIVE A (test code = LEUU) UA RBC (test code = RBCU) 0-3 RBC/HPF 0-3 UA WBC NO REFLEX (test code = 21-50 WBC/HPF 0-3 A WBCUCL) UA BACTERIA (test code = BACU) TRACE /HPF NONE SEEN UA SQUAMOUS CELLS (test code = 0-5 /HPF NONE SEEN SQU) UA MUCUS (test code = MUCU) TRACE /LPF NONE SEEN - US RETROPERITONEAL [id number] 09:58:00 Name: JAMEY VAZQUEZ [facility] : 1960 Age/S: 59 / [address] Unit #: [id number] Loc: [place] [id number] Phys: Olya Donohue MD Acct: [id number] Dis Date: Status: REG CLI PHONE #: [phone] Exam Date: 06/29/2020 105 FAX #: [phone] Reason: ACUTE KI DNEY FAILURE EXAMS: CPTCODE: [id number] US RETROPERITONEAL COM [id number] PROCEDURE: RENAL ULTRASOUND INDICATION: Acute kidney failure COMPARISON: CTA abdomen pelvis with runoff 04/30/2020 TECHNIQUE: Sonographic evaluation of the kidneys and urinary bladder was performed. FINDINGS: KIDNEYS: The right kidney measures 10.4 cm in length. Normal contour and parenchymal echogenicity. There is no hydronephrosis, nephrolithiasis, mass lesion or perinephric collection. 4.3 cm lowerpole cyst The left kidney measures 10.6 cm in length. Normal contour and parenchymal echogenicity. There is no hydronephrosis, nephrolithiasis, mass lesion or perinephric collection. 6.7 cm complex upper pole cyst was some low level internal echoes and wall irregularity. This is measured at 6.4 cm on 04/30/2020 BLADDER: Normal. VASCULATURE: The visualized aorta, common iliac arteries and IVC are unremarkable. IMPRESSION: Simple cyst lower pole right kidney with complex cyst upper pole left kidney. Recommend sonographic reevaluation of the complex cyst left kidney in 6 months with ultrasound. SL: [id number] at 0958 Reported and signed by: Fermin Green M.D. PAGE 1 Signed Report (CONTINUED) Name: JAMEY VAZQUEZ [facility] : 1960 Age/S: 59 / F [address] Unit #: [id number] Loc: [place] [address] Phys: Olya Donohue MD Acct: [id number] Dis Date: Status: REG CLI PHONE #: [phone] Exam Date: 06/29/2020 1052 FAX #: [phone] Reason: ACUTE KIDNEY FAILURE EXAMS: CPT CODE: [id number] US RETROPERITONEAL COM [id number] <Continued> CC: Anastasiia Hung MD; Olya Donohue MD Technologist: Maxine Amador RDMS(Cherelle)(BR) Trnscb Date/Time: 06/29/2020 (0958) Yash Orig Print D/T: S: 06/29/2020 (1052) Probe: PAGE 2 Signed ReportCREATININE W ESTIMATED [id number] 06:54:00 Test Item Value Reference Range Interpretation Comments BEDSIDE CREATININE MG/DL 0.6-1.3 H Previousl y reported (test code = CREATBED) resul t: 48.0 MG/DLEdited by: NAHOMYTXP on 05/01/20: 0653: BEDSIDE CREAT previously repo rted as: 48.0 H MG/D L GLOMERULAR FILTRATION 35 ML/MIN Previo usly reported RATE POC (test code = result : 1 ML/MINEdited GFRBED) by: NAHOMYTXP o n 05/01/20: 0653: GFRBED previously repo rted as: 1 ML/MIN ENTER BEDSIDE CREATININE RESULT: 48Enter Name of User Performing Test: KDB CREATININE W ESTIMATED [id number] 06:54:00 Test Item Value Reference Range Interpretation Comments BEDSIDE CREATININE 1.6 MG/DL 0.6-1.3 H Previousl y reported (test code = CREATBED) resul t: 48.0 MG/DLEdited by: NAHOMYTXP on 05/01/20: 0653: BEDSIDE CREAT previously repo rted as: 48.0 H MG/D L GLOMERULAR FILTRATION 35 ML/MIN Previo usly reported RATE POC (test code = result : 1 ML/MINEdited GFRBED) by: NAHOMYTXP o n 05/01/20: 0653: GFRBED previously repo rted as: 1 ML/MIN ENTER BEDSIDE CREATININE RESULT: 48Enter Name of User Performing Test: KDB CREATININE W ESTIMATED [id number] 06:51:00 Test Item Value Reference Range Interpretation Comments BEDSIDE CREATININE (test code = 48.0 MG/DL 0.6-1.3 H CREATBED) GLOMERULAR FILTRATION RATE POC 1 ML/MIN (test code = GFRBED) ENTER BEDSIDE CREATININE RESULT: 48Enter Name of User Performing Test: KDB- CTA ABD AORTA IF LWEX [id number] 13:49:00 [facility] 1960 Age/S: 59 / F [address] [place] [address] Blvd Unit #: [id number] Loc: [place] [id number] Phys: Blake Chandler MD Acct: [id number] Dis Date: Status: REG CLI PHONE #: [phone] Exam Date: 04/30/2020 0857 FAX #: [phone] Reason: ATHSCL [place] ARTERIES OF EXTRM. EXAMS: CPTCODE: [id number] [place] [address] Clinical Indication: Atherosclerosis of [place] arteries of extremities . Comparison: None TECHNIQUE: Contiguous axial CT angiographic images of the abdomen and pelvis with bilaterallower extremity runoff were acquired prior to and following administration of 100 mL Isovue-370 IV contrast. Coronal and sagittal MIP reconstructions were created. 3D volume rendered images were created. CT imaging performed at this location utilizes radiation dose optimization techniques which include one or more of the following: -Automated exposure control -Adjustment of the mA and/or kV according to patient size - Use of iterative reconstruction technique CT Radiation Dose DLP 1578.7 mGy-cm VASCULAR FINDINGS: Distal thoracic aorta is normal caliber. Soft and calcified atherosclerosis of the abdominal aorta without aneurysm. Celiac artery is patent. Conventional hepatic arterial anatomy. Superior mesenteric artery is patent. Inferior mesenteric artery is patent. Moderate to severe stenosis of the right renal artery origin. Left renal artery origin is patent. Right: Coarse calcifications within the common iliac artery with moderate st enoses. Multifocal mild to moderate stenoses of the internal iliac artery. External iliac artery is diminutive. Postsurgical changes of the right common femoral artery. Profunda is patent. Severe stenosis at the proximal superficial femoral artery. Superficial femoral artery is diminutive with multifocal severe stenoses. Popliteal artery is patent. Anterior tibial, tibioperoneal trunk, posterior tibial, and peroneal arteries are patent. Three-vessel runoff to the right ankle. Left: Soft and calcified plaque within the common iliac artery with moderate to severe stenoses. Multifocal mild to moderate stenoses of the internal iliac artery. External iliac artery is diminutive. Severe stenosis of the common femoral artery. Profunda is patent. Lung segment severe stenosis of the superficial femoral artery. Popliteal artery is patent anterior tibial artery, tibioperoneal trunk, posterior tibial, and peroneal arteries are patent. PAGE 1 Signed Report (CONTINUED) Name: JAMEY VAZQUEZ [facility] [place] : 1960 Age/S: 59 / F [address] [place] [address] Blvd Unit #: [id number] Loc:[place] [address] Phys: Blake Cahndler MD Acct: [id number] Dis Date: Status: REG CLI PHONE #: [phone] Exam Date: 04/30/2020 0857 FAX #: [phone] Reason: ATHSCL [place] ARTERIES OF EXTRM. EXAMS: CPT CODE: [id number] [place] [id number] <Continued> Three- vessel runoff to the left ankle. OTHER FINDINGS: Right basilar atelectasis. Aortic valve replacement. Coronary atherosclerosis. Heart sizeis normal. Liver, gallbladder, pancreas, and adrenal glands are unremarkable. 6.2 cm Bosniak 2F cyst of the left kidney. Smaller right renal cysts are identified, too small to characterize. Numerous calcified splenic granulomata. Stomach and small bowelare unremarkable. Appendix is not clearly identified. Colon is unremarkable. Urinary bladder is unremarkable. Uterus and adnexal regions are unremarkable. 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 Degenerative changes of the spine. No destructive osseous lesion. IMPRESSION: 1. Right: Postsurgical changes of the right common femoral artery.Superficial femoral artery is diminutive with multifocal severe stenoses. Three- vessel runoff to the right ankle. See findings for additional details. 2. Left: Moderate to severe common iliac artery stenoses. Severe stenosis of the common femoral artery and long segment severe stenosis of the superficial femoral artery. Three-vessel runoff to left ankle. See findings for additional details. 3. Severe stenosis of the right renal artery origin. 4. Bosniak 2F cyst of the left kidney. Recommend follow-up in 6 months. 5. Prior aortic valve replacement. SL: [id number] at 1349 Reported and signed by: Denis Sorensen M.D. PAGE 2 Signed Report (CONTINUED) Name: NICK VAZQUEZ : 1960 Age/S: 59 / F [address] [place] [address] Blvd Unit #: [id number] Loc: [place] [address] Phys: Blake Chandler DIANNAAlpa Acct: [id number] Dis Date: Status: REG CLI PHONE #: [phone] Exam Date: 04/30/2020 0857 FAX #: [phone] Reason: ATHSCL [place] ARTERIES OF EXTRM. EXAMS: CPT CODE: [id number] [place] [id number] <Continued> CC: Blake Chandler MD; Anastasiia Hung MD Technologist:Lisa Mathias, RT(R)(CT) CTDI: DLP: Trnscb Date/Time: 04/30/2020 (7301) [id number] Orig Print D/T: S: 04/30/2020 ([id number]) PAGE 3 Signed ReportCREATININE W ESTIMATED [id number] 11:47:00 Test Item Value Reference Range Interpretation Comments BEDSIDE CREATININE (test code = 1.6 MG/DL 0.6-1.3 H CREATBED) GLOMERULAR FILTRATION RATE POC 35 ML/MIN (test code = GFRBED) ENTER BEDSIDE CREATININE RESULT: 1.61Serial Number: [id number] Name of User Performing Test: JERRICAKB-TYPE NATRIURETIC FACTOR (BNP)2018-01-03 13:07:00 Test Item Value Reference Range Interpretation Comments B-TYPE NATRIURETIC PEPTIDE 1188 pg/mL 0-100 H (BEAKER) (test code = 700) [id number] 13:02:00 Test Item Value Reference Range Interpretation Comments MAGNESIUM (BEAKER) (test code = 1.2 mg/dL 1.6-2.6 L 627) BASIC METABOLIC [id number] 13:02:00 Test Item Value Reference Range Interpretation Comments SODIUM (BEAKER) 136 meq/L 136-145 (test code = 381) POTASSIUM (BEAKER) 3.2 meq/L 3.5-5.1 L (test code = 379) CHLORIDE (BEAKER) 94 meq/L 98-107 L (test code = 382) CO2 (BEAKER) (test 30 meq/L 22-29 H code = 355) BLOOD UREA NITROGEN 12 mg/dL 7-21 (BEAKER) (test code = 354) CREATININE (BEAKER) 0.80 mg/dL 0.57-1.25 (test code = 358) GLUCOSE RANDOM 92 mg/dL 70-105 (BEAKER) (test code = 652) CALCIUM (BEAKER) 9.1 mg/dL 8.4-10.2 (test code = 697) EGFR (BEAKER) (test 73 mL/min/1.73 ESTIMA TERESA GFR IS code = 1092) sq m NOT ACCURATE CREATININE CLEARANCE IN PREDICTING GLOMERULAR FILTRATION RATE . ESTIMATED GFR I S NOT APPLICABLE FOR DIALYSIS PATIEN TS. CBC W/PLT COUNT & AUTO [id number] 07:29:00 Test Item Value Reference Range Interpretation Comments WHITE BLOOD CELL COUNT (BEAKER) 7.2 K/ L 3.5-10.5 (test code = 775) RED BLOOD CELL COUNT (BEAKER) 3.60 M/ L 3.93-5.22 L (test code = 761) HEMOGLOBIN (BEAKER) (test code = 8.7 GM/DL 11.2-15.7 L 410) HEMATOCRIT (BEAKER) (test code = 28.9 % 34.1-44.9 L 411) MEAN CORPUSCULAR VOLUME (BEAKER) 80.3 fL 79.4-94.8 (test code = 753) MEAN CORPUSCULAR HEMOGLOBIN 24.2 pg 25.6-32.2 L (BEAKER) (test code = 751) MEAN CORPUSCULAR HEMOGLOBIN CONC 30.1 GM/DL 32.2-35.5 L (BEAKER) (test code = 752) RED CELL DISTRIBUTION WIDTH 21.8 % 11.7-14.4 H (BEAKER) (test code = 412) PLATELET COUNT (BEAKER) (test 151 K/CU MM 150-450 code = 756) MEAN PLATELET VOLUME (BEAKER) 9.8 fL 9.4-12.3 (test code = 754) NUCLEATED RED BLOOD CELLS 0 /100 WBC 0-0 (BEAKER) (test code = 413) NEUTROPHILS RELATIVE PERCENT 79 % (BEAKER) (test code = 429) LYMPHOCYTES RELATIVE PERCENT 6 % (BEAKER) (test code = 430) MONOCYTES RELATIVE PERCENT 12 % (BEAKER) (test code = 431) EOSINOPHILS RELATIVE PERCENT 1 % (BEAKER) (test code = 432) BASOPHILS RELATIVE PERCENT 1 % (BEAKER) (test code = 437) NEUTROPHILS ABSOLUTE COUNT 5.68 K/ L 1.56-6.13 (BEAKER) (test code = 670) LYMPHOCYTES ABSOLUTE COUNT 0.43 K/ L 1.18-3.74 L (BEAKER) (test code = 414) MONOCYTES ABSOLUTE COUNT (BEAKER) 0.87 K/ L 0.24-0.36 H (test code = 415) EOSINOPHILS ABSOLUTE COUNT 0.08 K/ L 0.04-0.36 (BEAKER) (test code = 416) BASOPHILS ABSOLUTE COUNT (BEAKER) 0.05 K/ L 0.01-0.08 (test code = 417) IMMATURE GRANULOCYTES-RELATIVE 1 % 0-1 PERCENT (BEAKER) (test code = 2801) CALCIUM, [id number] 07:16:00 Test Item Value Reference Range Interpretation Comments CALCIUM IONIZED (BEAKER) (test 0.79 mmol/L 1.12-1.27 LL code = 698) PH, BLOOD (BEAKER) (test code = 7.49 1810) [id number] 07:09:00 Test Item Value Reference Range Interpretation Comments MAGNESIUM (BEAKER) (test code = 1.6 mg/dL 1.6-2.6 627) BASIC METABOLIC [id number] 07:09:00 Test Item Value Reference Range Interpretation Comments SODIUM (BEAKER) 133 meq/L 136-145 L (test code = 381) POTASSIUM (BEAKER) 3.7 meq/L 3.5-5.1 (test code = 379) CHLORIDE (BEAKER) 96 meq/L 98-107 L (test code = 382) CO2 (BEAKER) (test 26 meq/L 22-29 code = 355) BLOOD UREA NITROGEN 11 mg/dL 7-21 (BEAKER) (test code = 354) CREATININE (BEAKER) 0.71 mg/dL 0.57-1.25 (test code = 358) GLUCOSE RANDOM 120 mg/dL 70-105 H (BEAKER) (test code = 652) CALCIUM (BEAKER) 8.6 mg/dL 8.4-10.2 (test code = 697) EGFR (BEAKER) (test 84 mL/min/1.73 ESTIMA TERESA GFR IS code = 1092) sq m NOT ACCURATE CREATININE CLEARANCE IN PREDICTING GLOMERULAR FILTRATION RATE . ESTIMATED GFR I S NOT APPLICABLE FOR DIALYSIS PATIEN TS. CBC W/PLT COUNT & AUTO [id number] 12:19:00 Test Item Value Reference Range Interpretation Comments WHITE BLOOD CELL COUNT (BEAKER) 9.3 K/ L 3.5-10.5 (test code = 775) RED BLOOD CELL COUNT (BEAKER) 3.79 M/ L 3.93-5.22 L (test code = 761) HEMOGLOBIN (BEAKER) (test code = 9.1 GM/DL 11.2-15.7 L 410) HEMATOCRIT (BEAKER) (test code = 30.2 % 34.1-44.9 L 411) MEAN CORPUSCULAR VOLUME (BEAKER) 79.7 fL 79.4-94.8 (test code = 753) MEAN CORPUSCULAR HEMOGLOBIN 24.0 pg 25.6-32.2 L (BEAKER) (test code = 751) MEAN CORPUSCULAR HEMOGLOBIN CONC 30.1 GM/DL 32.2-35.5 L (BEAKER) (test code = 752) RED CELL DISTRIBUTION WIDTH 21.9 % 11.7-14.4 H (BEAKER) (test code = 412) PLATELET COUNT (BEAKER) (test 143 K/CU MM 150-450 L code = 756) MEAN PLATELET VOLUME (BEAKER) 10.1 fL 9.4-12.3 (test code = 754) NUCLEATED RED BLOOD CELLS 0 /100 WBC 0-0 (BEAKER) (test code = 413) NEUTROPHILS RELATIVE PERCENT 79 % (BEAKER) (test code = 429) LYMPHOCYTES RELATIVE PERCENT 7 % (BEAKER) (test code = 430) MONOCYTES RELATIVE PERCENT 11 % (BEAKER) (test code = 431) EOSINOPHILS RELATIVE PERCENT 2 % (BEAKER) (test code = 432) BASOPHILS RELATIVE PERCENT 1 % (BEAKER) (test code = 437) NEUTROPHILS ABSOLUTE COUNT 7.34 K/ L 1.56-6.13 H (BEAKER) (test code = 670) LYMPHOCYTES ABSOLUTE COUNT 0.64 K/ L 1.18-3.74 L (BEAKER) (test code = 414) MONOCYTES ABSOLUTE COUNT (BEAKER) 1.02 K/ L 0.24-0.36 H (test code = 415) EOSINOPHILS ABSOLUTE COUNT 0.14 K/ L 0.04-0.36 (BEAKER) (test code = 416) BASOPHILS ABSOLUTE COUNT (BEAKER) 0.05 K/ L 0.01-0.08 (test code = 417) IMMATURE GRANULOCYTES-RELATIVE 1 % 0-1 PERCENT (BEAKER) (test code = 2801) RAD, CHEST, 1 VIEW, NON [id number] 08:04:00Reason for exam:->chfShould this be performed at the bedside?->YesFINAL REPORT Chest one view compared to December 25 Discussion: There is aortic valve replacement. Interstitial congestion is worse. No effusion or pneumothorax. Right midlung calcified granuloma is present. Signed: Leonel Maldonado Verified Date/Time: 12/27/2017 08:04:55 Reading Location: [facility] Radiology Reading Room [id number] 07:17:00 Test Item Value Reference Range Interpretation Comments MAGNESIUM (BEAKER) (test code = 1.6 mg/dL 1.6-2.6 627) BASIC METABOLIC [id number] 07:17:00 Test Item Value Reference Range Interpretation Comments SODIUM (BEAKER) 130 meq/L 136-145 L (test code = 381) POTASSIUM (BEAKER) 3.6 meq/L 3.5-5.1 (test code = 379) CHLORIDE (BEAKER) 93 meq/L 98-107 L (test code = 382) CO2 (BEAKER) (test 28 meq/L 22-29 code = 355) BLOOD UREA NITROGEN 12 mg/dL 7-21 (BEAKER) (test code = 354) CREATININE (BEAKER) 0.78 mg/dL 0.57-1.25 (test code = 358) GLUCOSE RANDOM 108 mg/dL 70-105 H (BEAKER) (test code = 652) CALCIUM (BEAKER) 8.5 mg/dL 8.4-10.2 (test code = 697) EGFR (BEAKER) (test 76 mL/min/1.73 ESTIMA TERESA GFR IS code = 1092) sq m NOT ACCURATE CREATININE CLEARANCE IN PREDICTING GLOMERULAR FILTRATION RATE . ESTIMATED GFR I S NOT APPLICABLE FOR DIALYSIS PATIEN TS. B-TYPE NATRIURETIC FACTOR (BNP)2017-12-27 07:10:00 Test Item Value Reference Range Interpretation Comments B-TYPE NATRIURETIC PEPTIDE 1147 pg/mL 0-100 H (BEAKER) (test code = 700) CALCIUM, [id number] 06:37:00 Test Item Value Reference Range Interpretation Comments CALCIUM IONIZED (BEAKER) (test 1.05 mmol/L 1.12-1.27 L code = 698) PH, BLOOD (BEAKER) (test code = 7.43 1810) CALCIUM, [id number] 07:28:00 Test Item Value Reference Range Interpretation Comments CALCIUM IONIZED (BEAKER) (test 1.07 mmol/L 1.12-1.27 L code = 698) PH, BLOOD (BEAKER) (test code = 7.30 1810) CBC W/PLT COUNT & AUTO [id number] 07:19:00 Test Item Value Reference Range Interpretation Comments WHITE BLOOD CELL COUNT (BEAKER) 10.8 K/ L 3.5-10.5 H (test code = 775) RED BLOOD CELL COUNT (BEAKER) 3.85 M/ L 3.93-5.22 L (test code = 761) HEMOGLOBIN (BEAKER) (test code = 9.6 GM/DL 11.2-15.7 L 410) HEMATOCRIT (BEAKER) (test code = 31.7 % 34.1-44.9 L 411) MEAN CORPUSCULAR VOLUME (BEAKER) 82.3 fL 79.4-94.8 (test code = 753) MEAN CORPUSCULAR HEMOGLOBIN 24.9 pg 25.6-32.2 L (BEAKER) (test code = 751) MEAN CORPUSCULAR HEMOGLOBIN CONC 30.3 GM/DL 32.2-35.5 L (BEAKER) (test code = 752) RED CELL DISTRIBUTION WIDTH 22.1 % 11.7-14.4 H (BEAKER) (test code = 412) PLATELET COUNT (BEAKER) (test 117 K/CU MM 150-450 L code = 756) MEAN PLATELET VOLUME (BEAKER) 10.5 fL 9.4-12.3 (test code = 754) NUCLEATED RED BLOOD CELLS 0 /100 WBC 0-0 (BEAKER) (test code = 413) NEUTROPHILS RELATIVE PERCENT 81 % (BEAKER) (test code = 429) LYMPHOCYTES RELATIVE PERCENT 9 % (BEAKER) (test code = 430) MONOCYTES RELATIVE PERCENT 9 % (BEAKER) (test code = 431) EOSINOPHILS RELATIVE PERCENT 1 % (BEAKER) (test code = 432) BASOPHILS RELATIVE PERCENT 0 % (BEAKER) (test code = 437) NEUTROPHILS ABSOLUTE COUNT 8.68 K/ L 1.56-6.13 H (BEAKER) (test code = 670) LYMPHOCYTES ABSOLUTE COUNT 0.92 K/ L 1.18-3.74 L (BEAKER) (test code = 414) MONOCYTES ABSOLUTE COUNT (BEAKER) 0.93 K/ L 0.24-0.36 H (test code = 415) EOSINOPHILS ABSOLUTE COUNT 0.12 K/ L 0.04-0.36 (BEAKER) (test code = 416) BASOPHILS ABSOLUTE COUNT (BEAKER) 0.03 K/ L 0.01-0.08 (test code = 417) IMMATURE GRANULOCYTES-RELATIVE 1 % 0-1 PERCENT (BEAKER) (test code = 2801) LACTIC ACID, VENOUS, WHOLE [id number] 06:45:00 Test Item Value Reference Range Interpretation Comments LACTATE BLOOD VENOUS (2) (BEAKER) 1.2 mmol/L 0.5-2.2 (test code = 2872) Effective 03/16/2016: Units/Reference Range ChangeNew: 0.5-2.2 mmol/L Previous: 5-20 mg/[id number] 06:31:00 Test Item Value Reference Range Interpretation Comments MAGNESIUM (BEAKER) (test code = 1.5 mg/dL 1.6-2.6 L 627) BASIC METABOLIC [id number] 06:31:00 Test Item Value Reference Range Interpretation Comments SODIUM (BEAKER) 134 meq/L 136-145 L (test code = 381) POTASSIUM (BEAKER) 3.6 meq/L 3.5-5.1 (test code = 379) CHLORIDE (BEAKER) 96 meq/L 98-107 L (test code = 382) CO2 (BEAKER) (test 31 meq/L 22-29 H code = 355) BLOOD UREA NITROGEN 17 mg/dL 7-21 (BEAKER) (test code = 354) CREATININE (BEAKER) 0.79 mg/dL 0.57-1.25 (test code = 358) GLUCOSE RANDOM 92 mg/dL 70-105 (BEAKER) (test code = 652) CALCIUM (BEAKER) 8.5 mg/dL 8.4-10.2 (test code = 697) EGFR (BEAKER) (test 74 mL/min/1.73 ESTIMA TERESA GFR IS code = 1092) sq m NOT ACCURATE CREATININE CLEARANCE IN PREDICTING GLOMERULAR FILTRATION RATE . ESTIMATED GFR I S NOT APPLICABLE FOR DIALYSIS PATIEN TS. RAD, CHEST, 1 VIEW, NON [id number] 08:22:00Reason for exam:->s/p TAVR with COPDShould this be performed at the bedside?->YesFINAL REPORT Chest one view compared to December 24 Discussion: Aortic valve r eplacement, azygos region calcified nodes, pulmonary congestion, and lateral right upper lobe calcified granuloma are unchanged. I could not exclude small left effusion. No pneumothorax. IMPRESSIONS: No change Signed: Leonel Maldonadoeport Verified Date/Time: 12/25/2017 08:22:52 Reading Location: [facility] Radiology Reading Room [id number] 05:09:00 Test Item Value Reference Range Interpretation Comments MAGNESIUM (BEAKER) (test code = 1.7 mg/dL 1.6-2.6 627) BASIC METABOLIC [id number] 05:09:00 Test Item Value Reference Range Interpretation Comments SODIUM (BEAKER) 136 meq/L 136-145 (test code = 381) POTASSIUM (BEAKER) 4.1 meq/L 3.5-5.1 (test code = 379) CHLORIDE (BEAKER) 98 meq/L 98-107 (test code = 382) CO2 (BEAKER) (test 29 meq/L 22-29 code = 355) BLOOD UREA NITROGEN 15 mg/dL 7-21 (BEAKER) (test code = 354) CREATININE (BEAKER) 0.81 mg/dL 0.57-1.25 (test code = 358) GLUCOSE RANDOM 102 mg/dL 70-105 (BEAKER) (test code = 652) CALCIUM (BEAKER) 8.3 mg/dL 8.4-10.2 L (test code = 697) EGFR (BEAKER) (test 72 mL/min/1.73 ESTIMA TERESA GFR IS code = 1092) sq m NOT ACCURATE CREATININE CLEARANCE IN PREDICTING GLOMERULAR FILTRATION RATE . ESTIMATED GFR I S NOT APPLICABLE FOR DIALYSIS PATIEN TS. CALCIUM, [id number] 05:01:00 Test Item Value Reference Range Interpretation Comments CALCIUM IONIZED (BEAKER) (test 0.93 mmol/L 1.12-1.27 L code = 698) PH, BLOOD (BEAKER) (test code = 7.49 1810) CBC W/PLT COUNT & AUTO [id number] 04:57:00 Test Item Value Reference Range Interpretation Comments WHITE BLOOD CELL COUNT (BEAKER) 10.5 K/ L 3.5-10.5 (test code = 775) RED BLOOD CELL COUNT (BEAKER) 4.10 M/ L 3.93-5.22 (test code = 761) HEMOGLOBIN (BEAKER) (test code = 10.0 GM/DL 11.2-15.7 L 410) HEMATOCRIT (BEAKER) (test code = 33.7 % 34.1-44.9 L 411) MEAN CORPUSCULAR VOLUME (BEAKER) 82.2 fL 79.4-94.8 (test code = 753) MEAN CORPUSCULAR HEMOGLOBIN 24.4 pg 25.6-32.2 L (BEAKER) (test code = 751) MEAN CORPUSCULAR HEMOGLOBIN CONC 29.7 GM/DL 32.2-35.5 L (BEAKER) (test code = 752) RED CELL DISTRIBUTION WIDTH 22.5 % 11.7-14.4 H (BEAKER) (test code = 412) PLATELET COUNT (BEAKER) (test 112 K/CU MM 150-450 L code = 756) MEAN PLATELET VOLUME (BEAKER) 10.6 fL 9.4-12.3 (test code = 754) NUCLEATED RED BLOOD CELLS 0 /100 WBC 0-0 (BEAKER) (test code = 413) NEUTROPHILS RELATIVE PERCENT 79 % (BEAKER) (test code = 429) LYMPHOCYTES RELATIVE PERCENT 9 % (BEAKER) (test code = 430) MONOCYTES RELATIVE PERCENT 9 % (BEAKER) (test code = 431) EOSINOPHILS RELATIVE PERCENT 2 % (BEAKER) (test code = 432) BASOPHILS RELATIVE PERCENT 1 % (BEAKER) (test code = 437) NEUTROPHILS ABSOLUTE COUNT 8.27 K/ L 1.56-6.13 H (BEAKER) (test code = 670) LYMPHOCYTES ABSOLUTE COUNT 0.95 K/ L 1.18-3.74 L (BEAKER) (test code = 414) MONOCYTES ABSOLUTE COUNT (BEAKER) 0.94 K/ L 0.24-0.36 H (test code = 415) EOSINOPHILS ABSOLUTE COUNT 0.17 K/ L 0.04-0.36 (BEAKER) (test code = 416) BASOPHILS ABSOLUTE COUNT (BEAKER) 0.05 K/ L 0.01-0.08 (test code = 417) IMMATURE GRANULOCYTES-RELATIVE 1 % 0-1 PERCENT (BEAKER) (test code = 2801) [id number] 17:53:00 Test Item Value Reference Range Interpretation Comments POTASSIUM (BEAKER) (test code = 3.4 meq/L 3.5-5.1 L 379) [id number] 17:53:00 Test Item Value Reference Range Interpretation Comments MAGNESIUM (BEAKER) (test code = 1.8 mg/dL 1.6-2.6 627) CBC W/PLT COUNT & AUTO [id number] 07:00:00 Test Item Value Reference Range Interpretation Comments WHITE BLOOD CELL COUNT (BEAKER) 9.0 K/ L 3.5-10.5 (test code = 775) RED BLOOD CELL COUNT (BEAKER) 3.96 M/ L 3.93-5.22 (test code = 761) HEMOGLOBIN (BEAKER) (test code = 9.8 GM/DL 11.2-15.7 L 410) HEMATOCRIT (BEAKER) (test code = 31.7 % 34.1-44.9 L 411) MEAN CORPUSCULAR VOLUME (BEAKER) 80.1 fL 79.4-94.8 (test code = 753) MEAN CORPUSCULAR HEMOGLOBIN 24.7 pg 25.6-32.2 L (BEAKER) (test code = 751) MEAN CORPUSCULAR HEMOGLOBIN CONC 30.9 GM/DL 32.2-35.5 L (BEAKER) (test code = 752) RED CELL DISTRIBUTION WIDTH 22.4 % 11.7-14.4 H (BEAKER) (test code = 412) PLATELET COUNT (BEAKER) (test code 91 K/CU MM 150-450 L = 756) MEAN PLATELET VOLUME (BEAKER) 10.2 fL 9.4-12.3 (test code = 754) NUCLEATED RED BLOOD CELLS (BEAKER) 0 /100 WBC 0-0 (test code = 413) NEUTROPHILS RELATIVE PERCENT 82 % (BEAKER) (test code = 429) LYMPHOCYTES RELATIVE PERCENT 8 % (BEAKER) (test code = 430) MONOCYTES RELATIVE PERCENT 9 % (BEAKER) (test code = 431) EOSINOPHILS RELATIVE PERCENT 1 % (BEAKER) (test code = 432) BASOPHILS RELATIVE PERCENT 0 % (BEAKER) (test code = 437) NEUTROPHILS ABSOLUTE COUNT 7.36 K/ L 1.56-6.13 H (BEAKER) (test code = 670) LYMPHOCYTES ABSOLUTE COUNT 0.69 K/ L 1.18-3.74 L (BEAKER) (test code = 414) MONOCYTES ABSOLUTE COUNT (BEAKER) 0.79 K/ L 0.24-0.36 H (test code = 415) EOSINOPHILS ABSOLUTE COUNT 0.09 K/ L 0.04-0.36 (BEAKER) (test code = 416) BASOPHILS ABSOLUTE COUNT (BEAKER) 0.02 K/ L 0.01-0.08 (test code = 417) IMMATURE GRANULOCYTES-RELATIVE 1 % 0-1 PERCENT (BEAKER) (test code = 2801) [id number] 06:09:00 Test Item Value Reference Range Interpretation Comments MAGNESIUM (BEAKER) (test code = 1.1 mg/dL 1.6-2.6 L 627) BASIC METABOLIC [id number] 06:09:00 Test Item Value Reference Range Interpretation Comments SODIUM (BEAKER) 136 meq/L 136-145 (test code = 381) POTASSIUM (BEAKER) 3.7 meq/L 3.5-5.1 (test code = 379) CHLORIDE (BEAKER) 102 meq/L 98-107 (test code = 382) CO2 (BEAKER) (test 26 meq/L 22-29 code = 355) BLOOD UREA NITROGEN 13 mg/dL 7-21 (BEAKER) (test code = 354) CREATININE (BEAKER) 0.67 mg/dL 0.57-1.25 (test code = 358) GLUCOSE RANDOM 128 mg/dL 70-105 H (BEAKER) (test code = 652) CALCIUM (BEAKER) 8.2 mg/dL 8.4-10.2 L (test code = 697) EGFR (BEAKER) (test 90 mL/min/1.73 ESTIMA TERESA GFR IS code = 1092) sq m NOT ACCURATE CREATININE CLEARANCE IN PREDICTING GLOMERULAR FILTRATION RATE . ESTIMATED GFR I S NOT APPLICABLE FOR DIALYSIS PATIEN TS. LACTIC ACID, ARTERIAL, WHOLE [id number] 05:59:00 Test Item Value Reference Range Interpretation Comments LACTATE BLOOD ARTERIAL (2) 0.6 mmol/L 0.5-2.2 (BEAKER) (test code = 2874) Effective 03/16/2016: Units/Reference Range ChangeNew: 0.5-2.2 mmol/L Previous: 5-20 mg/dLBLOOD GAS, [id number] 05:19:00 Test Item Value Reference Range Interpretation Comments PH ARTERIAL (BEAKER) (test code = 7.42 7.35-7.45 383) PCO2 ARTERIAL (BEAKER) (test code 44 mmHg 35-45 = 384) PO2 ARTERIAL (BEAKER) (test code = 89 mmHg 80-90 385) O2 SATURATION ARTERIAL (BEAKER) 96.8 % 96.0-97.0 (test code = 386) HCO3 ARTERIAL (BEAKER) (test code 28 mmol/L 21-29 = 388) BASE EXCESS ARTERIAL (BEAKER) 3.2 mmol/L -2.0-3.0 H (test code = 387) PATIENT TEMPERATURE (BEAKER) (test 37.2 C code = 1818) FIO2 (BEAKER) (test code = 1819) 36.0 % CALCIUM, [id number] 05:19:00 Test Item Value Reference Range Interpretation Comments CALCIUM IONIZED (BEAKER) (test 1.08 mmol/L 1.12-1.27 L code = 698) PH, BLOOD (BEAKER) (test code = 7.42 1810) RAD, CHEST, 1 VIEW, NON [id number] 04:18:00Reason for exam:->COPD, intubated s/p TAVRShould this be performed at the bedside?->YesFINAL REPORT RAD, CHEST, 1 VIEW, NON DEPT INDICATION: COPD, intubated s/p TAVR COMPARISON: Prior day's exam FINDINGS: Portable frontal view of the chest. IMPRESSION: Support Lines: Stable right IJ central venous catheter. Lungs and pleura: Congestive interstitial changes favor mild edema. Trace left effusion. Calcified granuloma in the right upper lobe is stable. No pneumotho rax.Heart and mediastinum: Unchanged contours. Redemonstration of mediastinal calcified lymph nodes.Additional findings: None. Signed: JR Almendarez Robert MDReport Verified Date/Time: 12/24/2017 04:18:53 Reading Location: [address] Reading Room BLOOD GAS, [id number] 15:48:00 Test Item Value Reference Range Interpretation Comments PH ARTERIAL (BEAKER) (test code = 7.43 7.35-7.45 383) PCO2 ARTERIAL (BEAKER) (test code 43 mmHg 35-45 = 384) PO2 ARTERIAL (BEAKER) (test code = 158 mmHg 80-90 H 385) O2 SATURATION ARTERIAL (BEAKER) 99.1 % 96.0-97.0 H (test code = 386) HCO3 ARTERIAL (BEAKER) (test code 28 mmol/L 21-29 = 388) BASE EXCESS ARTERIAL (BEAKER) 3.0 mmol/L -2.0-3.0 (test code = 387) PATIENT TEMPERATURE (BEAKER) (test 36.7 C code = 1818) FIO2 (BEAKER) (test code = 1819) 40.0 % SODIUM NA-STAT [id number] 15:48:00 Test Item Value Reference Range Interpretation Comments SODIUM (BEAKER) (test code = 381) 133 meq/L 135-148 L GLUCOSE-STAT [id number] 15:48:00 Test Item Value Reference Range Interpretation Comments GLUCOSE RANDOM (BEAKER) (test code 143 mg/dL 70-110 H = 652) HGB/HCT (H&H) - STAT [id number] 15:48:00 Test Item Value Reference Range Interpretation Comments HEMOGLOBIN (BEAKER) (test code = 10.9 g/dL 12.0-15.0 L 410) HEMATOCRIT (BEAKER) (test code = 32.0 % 36.0-45.0 L 411) POTASSIUM-STAT [id number] 15:47:00 Test Item Value Reference Range Interpretation Comments POTASSIUM (BEAKER) (test code = 3.7 meq/L 3.6-5.5 379) CALCIUM, [id number] 14:08:00 Test Item Value Reference Range Interpretation Comments CALCIUM IONIZED (BEAKER) (test 0.97 mmol/L 1.12-1.27 L code = 698) PH, BLOOD (BEAKER) (test code = 7.46 1810) BLOOD GAS, [id number] 14:07:00 Test Item Value Reference Range Interpretation Comments PH ARTERIAL (BEAKER) (test code = 7.46 7.35-7.45 H 383) PCO2 ARTERIAL (BEAKER) (test code 40 mmHg 35-45 = 384) PO2 ARTERIAL (BEAKER) (test code = 78 mmHg 80-90 L 385) O2 SATURATION ARTERIAL (BEAKER) 96.2 % 96.0-97.0 (test code = 386) HCO3 ARTERIAL (BEAKER) (test code 28 mmol/L 21-29 = 388) BASE EXCESS ARTERIAL (BEAKER) 4.1 mmol/L -2.0-3.0 H (test code = 387) PATIENT TEMPERATURE (BEAKER) (test 37.0 C code = 1818) FIO2 (BEAKER) (test code = 1819) 50.0 % SODIUM NA-STAT [id number] 14:07:00 Test Item Value Reference Range Interpretation Comments SODIUM (BEAKER) (test code = 381) 132 meq/L 135-148 L POTASSIUM-STAT [id number] 14:07:00 Test Item Value Reference Range Interpretation Comments POTASSIUM (BEAKER) (test code = 3.3 meq/L 3.6-5.5 L 379) GLUCOSE-STAT [id number] 14:07:00 Test Item Value Reference Range Interpretation Comments GLUCOSE RANDOM (BEAKER) (test code 127 mg/dL 70-110 H = 652) HGB/HCT (H&H) - STAT [id number] 14:07:00 Test Item Value Reference Range Interpretation Comments HEMOGLOBIN (BEAKER) (test code = 11.1 g/dL 12.0-15.0 L 410) HEMATOCRIT (BEAKER) (test code = 33.0 % 36.0-45.0 L 411) POCT-GLUCOSE [id number] 12:50:00 Test Item Value Reference Range Interpretation Comments POC-GLUCOSE METER 144 mg/dL 70-110 H TESTED AT [facility] [address] (BEAKER) (test code = [place] 1538) [id number] 07:14:00 Test Item Value Reference Range Interpretation Comments MAGNESIUM (BEAKER) 1.4 mg/dL 1.6-2.6 L Specimen slightly (test code = 627) hemolyzed BASIC METABOLIC [id number] 07:14:00 Test Item Value Reference Range Interpretation Comments SODIUM (BEAKER) 135 meq/L 136-145 L (test code = 381) POTASSIUM (BEAKER) 3.9 meq/L 3.5-5.1 Specimen slightly (test code = 379) hemolyzed CHLORIDE (BEAKER) 101 meq/L 98-107 (test code = 382) CO2 (BEAKER) (test 27 meq/L 22-29 code = 355) BLOOD UREA NITROGEN 13 mg/dL 7-21 (BEAKER) (test code = 354) CREATININE (BEAKER) 0.74 mg/dL 0.57-1.25 Specimen slightly (test code = 358) hemolyzed GLUCOSE RANDOM 112 mg/dL 70-105 H (BEAKER) (test code = 652) CALCIUM (BEAKER) 8.9 mg/dL 8.4-10.2 (test code = 697) EGFR (BEAKER) (test 80 mL/min/1.73 ESTIMA TERESA GFR IS code = 1092) sq m NOT ACCURATE CREATININE CLEARANCE IN PREDICTING GLOMERULAR FILTRATION RATE . ESTIMATED GFR I S NOT APPLICABLE FOR DIALYSIS PATIEN TS. CBC W/PLT COUNT & AUTO [id number] 06:43:00 Test Item Value Reference Range Interpretation Comments WHITE BLOOD CELL COUNT (BEAKER) 7.7 K/ L 3.5-10.5 (test code = 775) RED BLOOD CELL COUNT (BEAKER) 3.90 M/ L 3.93-5.22 L (test code = 761) HEMOGLOBIN (BEAKER) (test code = 9.5 GM/DL 11.2-15.7 L 410) HEMATOCRIT (BEAKER) (test code = 30.1 % 34.1-44.9 L 411) MEAN CORPUSCULAR VOLUME (BEAKER) 77.2 fL 79.4-94.8 L (test code = 753) MEAN CORPUSCULAR HEMOGLOBIN 24.4 pg 25.6-32.2 L (BEAKER) (test code = 751) MEAN CORPUSCULAR HEMOGLOBIN CONC 31.6 GM/DL 32.2-35.5 L (BEAKER) (test code = 752) RED CELL DISTRIBUTION WIDTH 22.3 % 11.7-14.4 H (BEAKER) (test code = 412) PLATELET COUNT (BEAKER) (test code 93 K/CU MM 150-450 L = 756) MEAN PLATELET VOLUME (BEAKER) 10.2 fL 9.4-12.3 (test code = 754) NUCLEATED RED BLOOD CELLS (BEAKER) 0 /100 WBC 0-0 (test code = 413) NEUTROPHILS RELATIVE PERCENT 79 % (BEAKER) (test code = 429) LYMPHOCYTES RELATIVE PERCENT 12 % (BEAKER) (test code = 430) MONOCYTES RELATIVE PERCENT 7 % (BEAKER) (test code = 431) EOSINOPHILS RELATIVE PERCENT 0 % (BEAKER) (test code = 432) BASOPHILS RELATIVE PERCENT 0 % (BEAKER) (test code = 437) NEUTROPHILS ABSOLUTE COUNT 6.12 K/ L 1.56-6.13 (BEAKER) (test code = 670) LYMPHOCYTES ABSOLUTE COUNT 0.96 K/ L 1.18-3.74 L (BEAKER) (test code = 414) MONOCYTES ABSOLUTE COUNT (BEAKER) 0.56 K/ L 0.24-0.36 H (test code = 415) EOSINOPHILS ABSOLUTE COUNT 0.01 K/ L 0.04-0.36 L (BEAKER) (test code = 416) BASOPHILS ABSOLUTE COUNT (BEAKER) 0.02 K/ L 0.01-0.08 (test code = 417) IMMATURE GRANULOCYTES-RELATIVE 1 % 0-1 PERCENT (BEAKER) (test code = 2801) LACTIC ACID, ARTERIAL, WHOLE [id number] 06:38:00 Test Item Value Reference Range Interpretation Comments LACTATE BLOOD ARTERIAL (2) 0.8 mmol/L 0.5-2.2 (BEAKER) (test code = 4714) Effective 03/16/2016: Units/Reference Range ChangeNew: 0.5-2.2 mmol/L Previous: 5-20 mg/dLCALCIUM, [id number] 06:12:00 Test Item Value Reference Range Interpretation Comments CALCIUM IONIZED (BEAKER) (test 1.04 mmol/L 1.12-1.27 L code = 698) PH, BLOOD (BEAKER) (test code = 7.45 1810) BLOOD GAS, [id number] 06:07:00 Test Item Value Reference Range Interpretation Comments PH ARTERIAL (BEAKER) (test code = 7.45 7.35-7.45 383) PCO2 ARTERIAL (BEAKER) (test code 42 mmHg 35-45 = 384) PO2 ARTERIAL (BEAKER) (test code = 103 mmHg 80-90 H 385) O2 SATURATION ARTERIAL (BEAKER) 97.9 % 96.0-97.0 H (test code = 386) HCO3 ARTERIAL (BEAKER) (test code 29 mmol/L 21-29 = 388) BASE EXCESS ARTERIAL (BEAKER) 4.3 mmol/L -2.0-3.0 H (test code = 387) PATIENT TEMPERATURE (BEAKER) (test 37.1 C code = 1818) FIO2 (BEAKER) (test code = 1819) 40.0 % RAD, CHEST, 1 VIEW, NON [id number] 02:56:00Reason for exam:->COPD, intubated s/p TAVRShould this be performed at the bedside?->YesFINAL REPORT RAD, CHEST, 1 VIEW, NON DEPT INDICATION: COPD, intubated s/p TAVR COMPARISON: Prior day's exam FINDINGS: Portable frontal view of the chest. IMPRESSION: Support Lines: Interval extubation and removal of enteric tube. Right IJ sheath remains in place. Lungs and pleura: Ingestive interstitial changes are similar to the prior examination. Decreased inspiratory effort noted in the current exam. Trace bilateral effusions are stable. No pneumothorax.Heart and mediastinum: Stable contours. Stable surgical changes.Additional findings: None. Signed: JR Almendarez Robert MDReport Verified Date/Time: 12/23/2017 02:56:34 Reading Location: [address] Reading Room BLOOD GAS, [id number] 00:29:00 Test Item Value Reference Range Interpretation Comments PH ARTERIAL (BEAKER) (test code = 7.52 7.35-7.45 H 383) PCO2 ARTERIAL (BEAKER) (test code 35 mmHg 35-45 = 384) PO2 ARTERIAL (BEAKER) (test code = 137 mmHg 80-90 H 385) O2 SATURATION ARTERIAL (BEAKER) 99.0 % 96.0-97.0 H (test code = 386) HCO3 ARTERIAL (BEAKER) (test code 28 mmol/L 21-29 = 388) BASE EXCESS ARTERIAL (BEAKER) 5.4 mmol/L -2.0-3.0 H (test code = 387) PATIENT TEMPERATURE (BEAKER) (test 36.8 C code = 1818) FIO2 (BEAKER) (test code = 1819) 40.0 % [id number] 20:23:00 Test Item Value Reference Range Interpretation Comments MAGNESIUM (BEAKER) (test code = 1.3 mg/dL 1.6-2.6 L 627) [id number] 20:23:00 Test Item Value Reference Range Interpretation Comments PHOSPHORUS (BEAKER) (test code = 4.2 mg/dL 2.3-4.7 604) BASIC METABOLIC [id number] 20:23:00 Test Item Value Reference Range Interpretation Comments SODIUM (BEAKER) 131 meq/L 136-145 L (test code = 381) POTASSIUM (BEAKER) 3.2 meq/L 3.5-5.1 L (test code = 379) CHLORIDE (BEAKER) 96 meq/L 98-107 L (test code = 382) CO2 (BEAKER) (test 24 meq/L 22-29 code = 355) BLOOD UREA NITROGEN 12 mg/dL 7-21 (BEAKER) (test code = 354) CREATININE (BEAKER) 0.76 mg/dL 0.57-1.25 (test code = 358) GLUCOSE RANDOM 155 mg/dL 70-105 H (BEAKER) (test code = 652) CALCIUM (BEAKER) 9.3 mg/dL 8.4-10.2 (test code = 697) EGFR (BEAKER) (test 78 mL/min/1.73 ESTIMA TERESA GFR IS code = 1092) sq m NOT ACCURATE CREATININE CLEARANCE IN PREDICTING GLOMERULAR FILTRATION RATE . ESTIMATED GFR I S NOT APPLICABLE FOR DIALYSIS PATIEN TS. LACTIC ACID, ARTERIAL, WHOLE [id number] 20:21:00 Test Item Value Reference Range Interpretation Comments LACTATE BLOOD ARTERIAL (2) 1.4 mmol/L 0.5-2.2 (BEAKER) (test code = 2874) Effective 03/16/2016: Units/Reference Range ChangeNew: 0.5-2.2 mmol/L Previous: 5-20 mg/[id number] 20:21:00 Test Item Value Reference Range Interpretation Comments FIBRINOGEN LEVEL (BEAKER) (test 304 mg/dl 225-434 code = 658) [id number] 20:21:00 Test Item Value Reference Range Interpretation Comments PARTIAL THROMBOPLASTIN TIME 30.2 seconds 22.5-36.0 (BEAKER) (test code = 760) PROTHROMBIN [id number] 20:20:00 Test Item Value Reference Range Interpretation Comments PROTIME (BEAKER) (test code = 15.2 seconds 11.7-14.7 H 759) INR (BEAKER) (test code = 370) 1.2 <=5.9 RECOMMENDED COUMADIN/WARFARIN INR THERAPY RANGESSTANDARD DOSE: 2.0 - 3.0 Includes: PROPHYLAXIS forvenous thrombosis, systemic embolization; TREATMENT for venous thrombosis and/or pulmonary embolus.HIGH RISK: Target INR is 2.5-3.5 for patients with mechanical heart valves.CBC W/PLT COUNT & AUTO DIFFERENTIAL 2017-12-22 20:19:00 Test Item Value Reference Range Interpretation Comments WHITE BLOOD CELL COUNT (BEAKER) 12.1 K/ L 3.5-10.5 H (test code = 775) RED BLOOD CELL COUNT (BEAKER) 4.33 M/ L 3.93-5.22 (test code = 761) HEMOGLOBIN (BEAKER) (test code = 10.7 GM/DL 11.2-15.7 L 410) HEMATOCRIT (BEAKER) (test code = 33.6 % 34.1-44.9 L 411) MEAN CORPUSCULAR VOLUME (BEAKER) 77.6 fL 79.4-94.8 L (test code = 753) MEAN CORPUSCULAR HEMOGLOBIN 24.7 pg 25.6-32.2 L (BEAKER) (test code = 751) MEAN CORPUSCULAR HEMOGLOBIN CONC 31.8 GM/DL 32.2-35.5 L (BEAKER) (test code = 752) RED CELL DISTRIBUTION WIDTH 22.2 % 11.7-14.4 H (BEAKER) (test code = 412) PLATELET COUNT (BEAKER) (test 124 K/CU MM 150-450 L code = 756) MEAN PLATELET VOLUME (BEAKER) 10.2 fL 9.4-12.3 (test code = 754) NUCLEATED RED BLOOD CELLS 0 /100 WBC 0-0 (BEAKER) (test code = 413) NEUTROPHILS RELATIVE PERCENT 79 % (BEAKER) (test code = 429) LYMPHOCYTES RELATIVE PERCENT 11 % (BEAKER) (test code = 430) MONOCYTES RELATIVE PERCENT 8 % (BEAKER) (test code = 431) EOSINOPHILS RELATIVE PERCENT 0 % (BEAKER) (test code = 432) BASOPHILS RELATIVE PERCENT 0 % (BEAKER) (test code = 437) NEUTROPHILS ABSOLUTE COUNT 9.61 K/ L 1.56-6.13 H (BEAKER) (test code = 670) LYMPHOCYTES ABSOLUTE COUNT 1.30 K/ L 1.18-3.74 (BEAKER) (test code = 414) MONOCYTES ABSOLUTE COUNT (BEAKER) 1.00 K/ L 0.24-0.36 H (test code = 415) EOSINOPHILS ABSOLUTE COUNT 0.02 K/ L 0.04-0.36 L (BEAKER) (test code = 416) BASOPHILS ABSOLUTE COUNT (BEAKER) 0.02 K/ L 0.01-0.08 (test code = 417) IMMATURE GRANULOCYTES-RELATIVE 1 % 0-1 PERCENT (BEAKER) (test code = 2801) RAD, CHEST, 1 VIEW, NON [id number] 20:19:00Reason for exam:->COPD, intubated s/p TAVRShould this be performed at the bedside?->YesFINAL REPORT RAD, CHEST, 1 VIEW, NON DEPT INDICATION: COPD, intubated s/p TAVR COMPARISON: 14 hours prior FINDINGS: Portable frontal view of the chest. IMPRESSION: Support Lines: Endotracheal tube terminates 5 cm above the karen. An enteric tube is present. The side-port projects just beyond the GE junction. Right IJ sheath terminates over the right internal jugular vein area Lungs and pleura: The lungs are underinflated. Calcified granuloma again noted. Scattered subsegmental atelectasis is present. There is a small left effusion. No pneumothorax.Heart and mediastinum: Stable cardiac size and mediastinal contours. New valvular replacement.Additional findings: None. Signed: JR Almendarez Robert MDReport Verified Date/Time: 12/22/2017 20:19:46 Reading Location: [id number] [place] [address] Reading Room BLOOD GAS, [id number] 19:59:00 Test Item Value Reference Range Interpretation Comments PH ARTERIAL (BEAKER) (test code = 7.46 7.35-7.45 H 383) PCO2 ARTERIAL (BEAKER) (test code 39 mmHg 35-45 = 384) PO2 ARTERIAL (BEAKER) (test code = 241 mmHg 80-90 H 385) O2 SATURATION ARTERIAL (BEAKER) 99.6 % 96.0-97.0 H (test code = 386) HCO3 ARTERIAL (BEAKER) (test code 28 mmol/L 21-29 = 388) BASE EXCESS ARTERIAL (BEAKER) 3.5 mmol/L -2.0-3.0 H (test code = 387) PATIENT TEMPERATURE (BEAKER) (test 36.8 C code = 1818) FIO2 (BEAKER) (test code = 1819) 80.0 % CALCIUM, [id number] 19:59:00 Test Item Value Reference Range Interpretation Comments CALCIUM IONIZED (BEAKER) (test 1.09 mmol/L 1.12-1.27 L code = 698) PH, BLOOD (BEAKER) (test code = 7.46 1810) BLOOD GAS, [id number] 17:39:00 Test Item Value Reference Range Interpretation Comments PH ARTERIAL (BEAKER) (test code = 7.48 7.35-7.45 H 383) PCO2 ARTERIAL (BEAKER) (test code 38 mmHg 35-45 = 384) PO2 ARTERIAL (BEAKER) (test code = 83 mmHg 80-90 385) O2 SATURATION ARTERIAL (BEAKER) 96.9 % 96.0-97.0 (test code = 386) HCO3 ARTERIAL (BEAKER) (test code 27 mmol/L 21-29 = 388) BASE EXCESS ARTERIAL (BEAKER) 3.4 mmol/L -2.0-3.0 H (test code = 387) PATIENT TEMPERATURE (BEAKER) (test 37.0 C code = 1818) FIO2 (BEAKER) (test code = 1819) 100.0 % SODIUM NA-STAT [id number] 17:39:00 Test Item Value Reference Range Interpretation Comments SODIUM (BEAKER) (test code = 381) 130 meq/L 135-148 L POTASSIUM-STAT [id number] 17:39:00 Test Item Value Reference Range Interpretation Comments POTASSIUM (BEAKER) (test code = 3.3 meq/L 3.6-5.5 L 379) GLUCOSE-STAT [id number] 17:39:00 Test Item Value Reference Range Interpretation Comments GLUCOSE RANDOM (BEAKER) (test code 178 mg/dL 70-110 H = 652) HGB/HCT (H&H) - STAT [id number] 17:39:00 Test Item Value Reference Range Interpretation Comments HEMOGLOBIN (BEAKER) (test code = 11.5 g/dL 12.0-15.0 L 410) HEMATOCRIT (BEAKER) (test code = 34.0 % 36.0-45.0 L 411) CALCIUM, [id number] 17:39:00 Test Item Value Reference Range Interpretation Comments CALCIUM IONIZED (BEAKER) (test 0.93 mmol/L 1.12-1.27 L code = 698) PH, BLOOD (BEAKER) (test code = 7.48 1810) BLOOD GAS, [id number] 16:56:00 Test Item Value Reference Range Interpretation Comments PH ARTERIAL (BEAKER) (test code = 7.46 7.35-7.45 H 383) PCO2 ARTERIAL (BEAKER) (test code 38 mmHg 35-45 = 384) PO2 ARTERIAL (BEAKER) (test code = 81 mmHg 80-90 385) O2 SATURATION ARTERIAL (BEAKER) 96.5 % 96.0-97.0 (test code = 386) HCO3 ARTERIAL (BEAKER) (test code 27 mmol/L 21-29 = 388) BASE EXCESS ARTERIAL (BEAKER) 2.9 mmol/L -2.0-3.0 (test code = 387) PATIENT TEMPERATURE (BEAKER) (test 37.0 C code = 1818) SODIUM NA-STAT [id number] 16:56:00 Test Item Value Reference Range Interpretation Comments SODIUM (BEAKER) (test code = 381) 131 meq/L 135-148 L POTASSIUM-STAT [id number] 16:56:00 Test Item Value Reference Range Interpretation Comments POTASSIUM (BEAKER) (test code = 3.1 meq/L 3.6-5.5 L 379) GLUCOSE-STAT [id number] 16:56:00 Test Item Value Reference Range Interpretation Comments GLUCOSE RANDOM (BEAKER) (test code 162 mg/dL 70-110 H = 652) HGB/HCT (H&H) - STAT [id number] 16:56:00 Test Item Value Reference Range Interpretation Comments HEMOGLOBIN (BEAKER) (test code = 10.7 g/dL 12.0-15.0 L 410) HEMATOCRIT (BEAKER) (test code = 31.0 % 36.0-45.0 L 411) [id number] 15:41:00 Test Item Value Reference Range Interpretation Comments ACTIVATED CLOTTING TIME 285 sec TEST ED AT [facility] 67[address] (BEAKER) (test code = E[place] Monreal [place] [address]) [id number] CALCIUM, [id number] 15:05:00 Test Item Value Reference Range Interpretation Comments CALCIUM IONIZED (BEAKER) (test 1.02 mmol/L 1.12-1.27 L code = 698) PH, BLOOD (BEAKER) (test code = 7.46 1890) BLOOD GAS, [id number] 15:05:00 Test Item Value Reference Range Interpretation Comments PH ARTERIAL (BEAKER) (test code = 7.46 7.35-7.45 H 383) PCO2 ARTERIAL (BEAKER) (test code 40 mmHg 35-45 = 384) PO2 ARTERIAL (BEAKER) (test code = 83 mmHg 80-90 385) O2 SATURATION ARTERIAL (BEAKER) 96.6 % 96.0-97.0 (test code = 386) HCO3 ARTERIAL (BEAKER) (test code 28 mmol/L 21-29 = 388) BASE EXCESS ARTERIAL (BEAKER) 3.6 mmol/L -2.0-3.0 H (test code = 387) PATIENT TEMPERATURE (BEAKER) (test 37.0 C code = 1818) FIO2 (BEAKER) (test code = 1819) 100.0 % SODIUM NA-STAT [id number] 15:05:00 Test Item Value Reference Range Interpretation Comments SODIUM (BEAKER) (test code = 381) 132 meq/L 135-148 L POTASSIUM-STAT [id number] 15:05:00 Test Item Value Reference Range Interpretation Comments POTASSIUM (BEAKER) (test code = 3.2 meq/L 3.6-5.5 L 379) GLUCOSE-STAT [id number] 15:05:00 Test Item Value Reference Range Interpretation Comments GLUCOSE RANDOM (BEAKER) (test code 124 mg/dL 70-110 H = 652) HGB/HCT (H&H) - STAT [id number] 15:05:00 Test Item Value Reference Range Interpretation Comments HEMOGLOBIN (BEAKER) (test code = 10.5 g/dL 12.0-15.0 L 410) HEMATOCRIT (BEAKER) (test code = 31.0 % 36.0-45.0 L 411) POCT-GLUCOSE [id number] 12:26:00 Test Item Value Reference Range Interpretation Comments POC-GLUCOSE METER 100 mg/dL 70-110 TESTED AT [place] [address] ([facility]) (test code = ELEONORA Monreal [facility] 1538) [id number] POCT-GLUCOSE [id number] 09:20:00 Test Item Value Reference Range Interpretation Comments POC-GLUCOSE METER 103 mg/dL 70-110 TESTED AT [place] [address] ([facility]) (test code = ELEONORA Monreal [facility] 1538) [id number] RAD, CHEST, 1 VIEW, NON [id number] 07:47:00Reason for exam:->chfShould this be performed at the bedside?->YesFINAL REPORT Chest one view AP 12/22/2017 7:47 AM CLINICAL INDICATION: chf COMPARISON: 12/18/2017 IMPRESSION: Cardiomediastinal contours are stable. There is central pulmonary vasculature congestion with mild interstitial edema. There is evidence for prior granulomatous disease. Bibasilar opacities suggest atelectasis. Pneumonia should be excluded clinically. Signed: Angy Santiago MDReport Verified Date/Time: 12/22/2017 07:47:39 Reading Location: [facility] Radiology ReadingRoom BASIC METABOLIC [id number] 05:54:00 Test Item Value Reference Range Interpretation Comments SODIUM (BEAKER) 133 meq/L 136-145 L (test code = 381) POTASSIUM (BEAKER) 3.9 meq/L 3.5-5.1 (test code = 379) CHLORIDE (BEAKER) 92 meq/L 98-107 L (test code = 382) CO2 (BEAKER) (test 29 meq/L 22-29 code = 355) BLOOD UREA NITROGEN 12 mg/dL 7-21 (BEAKER) (test code = 354) CREATININE (BEAKER) 0.78 mg/dL 0.57-1.25 (test code = 358) GLUCOSE RANDOM 117 mg/dL 70-105 H (BEAKER) (test code = 652) CALCIUM (BEAKER) 8.9 mg/dL 8.4-10.2 (test code = 697) EGFR (BEAKER) (test 76 mL/min/1.73 ESTIMA TERESA GFR IS code = 1092) sq m NOT ACCURATE CREATININE CLEARANCE IN PREDICTING GLOMERULAR FILTRATION RATE . ESTIMATED GFR I S NOT APPLICABLE FOR DIALYSIS PATIEN TS. CBC (HEMOGRAM ONLY)2017-12-22 05:40:00 Test Item Value Reference Range Interpretation Comments WHITE BLOOD CELL COUNT (BEAKER) 5.4 K/ L 3.5-10.5 (test code = 775) RED BLOOD CELL COUNT (BEAKER) 4.37 M/ L 3.93-5.22 (test code = 761) HEMOGLOBIN (BEAKER) (test code = 9.9 GM/DL 11.2-15.7 L 410) HEMATOCRIT (BEAKER) (test code = 33.1 % 34.1-44.9 L 411) MEAN CORPUSCULAR VOLUME (BEAKER) 75.7 fL 79.4-94.8 L (test code = 753) MEAN CORPUSCULAR HEMOGLOBIN 22.7 pg 25.6-32.2 L (BEAKER) (test code = 751) MEAN CORPUSCULAR HEMOGLOBIN CONC 29.9 GM/DL 32.2-35.5 L (BEAKER) (test code = 752) RED CELL DISTRIBUTION WIDTH 24.5 % 11.7-14.4 H (BEAKER) (test code = 412) PLATELET COUNT (BEAKER) (test 120 K/CU MM 150-450 L code = 756) MEAN PLATELET VOLUME (BEAKER) 9.9 fL 9.4-12.3 (test code = 754) NUCLEATED RED BLOOD CELLS 0 /100 WBC 0-0 (BEAKER) (test code = 413) B-TYPE NATRIURETIC FACTOR (BNP)2017-12-22 05:37:00 Test Item Value Reference Range Interpretation Comments B-TYPE NATRIURETIC PEPTIDE 1854 pg/mL 0-100 H (AKER) (test code = 700) POCT-GLUCOSE [id number] 22:05:00 Test Item Value Reference Range Interpretation Comments POC-GLUCOSE METER 172 mg/dL 70-110 H TESTED AT [place] [address] ([facility]) (test code = [facility] 1538) [id number] IMMUNOGLOBULIN A (IGA)2017-12-21 20:02:00 Test Item Value Reference Range Interpretation Comments IMMUNOGLOBULIN A (IGA) (BEAKER) 500 mg/dL 63-484 H (test code = 639) HEPATITIS PANEL, [id number] 13:25:00 Test Item Value Reference Range Interpretation Comments HEPATITIS A IGM ANTIBODY (BEAKER) Nonreactive Nonreactive (test code = 498) HEPATITIS B CORE IGM ANTIBODY Nonreactive Nonreactive (BEAKER) (test code = 645) HEPATITIS C ANTIBODY (BEAKER) Nonreactive Nonreactive (test code = 367) HEPATITIS B SURFACE ANTIGEN (2) Nonreactive Nonreactive (BEAKER) (test code = 2585) URINE [id number] 11:19:00 Test Item Value Reference Range Interpretation Comments CULTURE (BEAKER) (test <10,000 col/mL skin code = 1095) annika POCT-GLUCOSE [id number] 09:10:00 Test Item Value Reference Range Interpretation Comments POC-GLUCOSE METER 133 mg/dL 70-110 H TESTED AT [facility] [address] ([facility]) (test code = [facility] 1538) [id number] BASIC METABOLIC [id number] 06:35:00 Test Item Value Reference Range Interpretation Comments SODIUM (BEAKER) 132 meq/L 136-145 L (test code = 381) POTASSIUM (BEAKER) 3.7 meq/L 3.5-5.1 (test code = 379) CHLORIDE (BEAKER) 93 meq/L 98-107 L (test code = 382) CO2 (BEAKER) (test 26 meq/L 22-29 code = 355) BLOOD UREA NITROGEN 10 mg/dL 7-21 (BEAKER) (test code = 354) CREATININE (BEAKER) 0.71 mg/dL 0.57-1.25 (test code = 358) GLUCOSE RANDOM 118 mg/dL 70-105 H (BEAKER) (test code = 652) CALCIUM (BEAKER) 8.7 mg/dL 8.4-10.2 (test code = 697) EGFR (BEAKER) (test 84 mL/min/1.73 ESTIMA TERESA GFR IS code = 1092) sq m NOT ACCURATE CREATININE CLEARANCE IN PREDICTING GLOMERULAR FILTRATION RATE . ESTIMATED GFR I S NOT APPLICABLE FOR DIALYSIS PATIEN TS. POCT-GLUCOSE [id number] 21:59:00 Test Item Value Reference Range Interpretation Comments POC-GLUCOSE METER 121 mg/dL 70-110 H TESTED AT [facility] 67[address] (BEAKER) (test code = [place] 1538) [id number] HEMOGLOBIN AND [id number] 21:51:00 Test Item Value Reference Range Interpretation Comments HEMOGLOBIN (BEAKER) (test code = 8.2 GM/DL 11.2-15.7 L 410) HEMATOCRIT (BEAKER) (test code = 27.8 % 34.1-44.9 L 411) PROTHROMBIN [id number] 19:12:00 Test Item Value Reference Range Interpretation Comments PROTIME (BEAKER) (test code = 17.1 seconds 11.7-14.7 H 759) INR (BEAKER) (test code = 370) 1.4 <=5.9 RECOMMENDED COUMADIN/WARFARIN INR THERAPY RANGESSTANDARD DOSE: 2.0 - 3.0 Includes: PROPHYLAXIS forvenous thrombosis, systemic embolization; TREATMENT for venous thrombosis and/or pulmonary embolus.HIGH RISK: Target INR is 2.5-3.5 for patients with mechanical heart valves.CBC W/PLT COUNT & AUTO DIFFERENTIAL 2017-12-20 13:11:00 Test Item Value Reference Range Interpretation Comments WHITE BLOOD CELL COUNT (BEAKER) 3.1 K/ L 3.5-10.5 L (test code = 775) RED BLOOD CELL COUNT (BEAKER) 4.15 M/ L 3.93-5.22 (test code = 761) HEMOGLOBIN (BEAKER) (test code = 8.8 GM/DL 11.2-15.7 L 410) HEMATOCRIT (BEAKER) (test code = 30.9 % 34.1-44.9 L 411) MEAN CORPUSCULAR VOLUME (BEAKER) 74.5 fL 79.4-94.8 L (test code = 753) MEAN CORPUSCULAR HEMOGLOBIN 21.2 pg 25.6-32.2 L (BEAKER) (test code = 751) MEAN CORPUSCULAR HEMOGLOBIN CONC 28.5 GM/DL 32.2-35.5 L (BEAKER) (test code = 752) RED CELL DISTRIBUTION WIDTH 24.2 % 11.7-14.4 H (BEAKER) (test code = 412) PLATELET COUNT (BEAKER) (test 120 K/CU MM 150-450 L code = 756) MEAN PLATELET VOLUME (BEAKER) 9.8 fL 9.4-12.3 (test code = 754) NUCLEATED RED BLOOD CELLS 0 /100 WBC 0-0 (BEAKER) (test code = 413) NEUTROPHILS RELATIVE PERCENT 62 % (BEAKER) (test code = 429) LYMPHOCYTES RELATIVE PERCENT 24 % (BEAKER) (test code = 430) MONOCYTES RELATIVE PERCENT 13 % (BEAKER) (test code = 431) EOSINOPHILS RELATIVE PERCENT 1 % (BEAKER) (test code = 432) BASOPHILS RELATIVE PERCENT 0 % (BEAKER) (test code = 437) NEUTROPHILS ABSOLUTE COUNT 1.91 K/ L 1.56-6.13 (BEAKER) (test code = 670) LYMPHOCYTES ABSOLUTE COUNT 0.73 K/ L 1.18-3.74 L (BEAKER) (test code = 414) MONOCYTES ABSOLUTE COUNT (BEAKER) 0.41 K/ L 0.24-0.36 H (test code = 415) EOSINOPHILS ABSOLUTE COUNT 0.02 K/ L 0.04-0.36 L (BEAKER) (test code = 416) BASOPHILS ABSOLUTE COUNT (BEAKER) 0.01 K/ L 0.01-0.08 (test code = 417) IMMATURE GRANULOCYTES-RELATIVE 1 % 0-1 PERCENT (BEAKER) (test code = 2801) (MANUAL DIFFERENTIAL)2017-12-20 13:11:00 Test Item Value Reference Range Interpretation Comments TOTAL COUNTED (BEAKER) (test code = 1351) WBC MORPHOLOGY (BEAKER) (test code = Normal 487) PLT MORPHOLOGY (BEAKER) (test code = Normal 486) RBC MORPHOLOGY (BEAKER) (test code = Normal 762) CT, CTA [id number] 11:24:00Addendum BeginsREPORT STATUS:A Addendum: The non vascular findings were reviewed by the nursing education consultant radiologist. I agree with the original report which is unchanged. The liver is cirrhotic. No hypervascular masses seen on this single phase CT. The spleen is enlarged and containsgranulomas. There is also trace ascites in the pelvis. Minimally enlarged nodes are identified in the upper abdomen, especially the agnes hepatis. Pleural effusions and lower lobe compressive atelectasis are identified. There are patchy pulmonary ground glass opacities scattered bilaterally along with septal thickening which is nodular in some locations. There are enlarged thoracic lymph nodes, particularly in the mediastinum and dejan. A few minimally enlarged anterior diaphragmatic and epicardial lymph nodes are identified. IMPRESSION 1. Please refer to the conclusions reported separately for vascular findings related to TAVR. 2. Cirrhosis and mild portal hypertension. Liver CT or MRI could be performed to further evaluate for mass. 3. Pulmonary groundglass opacities and interlobular septal thickening. Findings may represent cardiogenic edema given history of aortic stenosis. However, this is nonspecific, especially in the presence of thoracic nodes. Lymphangitic spread of neoplasm could havea similar CT appearance. Signed: Cj Thurman MDReport Verified Date/Time: 12/20/2017 11:24:[address] angiography of the thoracoabdominal aorta and pelvic arteries, 19 December 2017 INDICATION: This is a 57 years old female, with a diagnosis of aortic stenosis presents for preprocedure TAVR assessment. This study is performed in attempt to avoid invasive procedure. TECHNIQUE: Spiral position before and during contrast demonstration using a Jed multidetector CT scanner. Multiplanar 3-D volume rendering reformation was performed using independent workstation interactively by the dictating physician and the 3-D specialist. The amount of contrast used and method of administration can be found in the scanned Epic document. This exam was performed according to our departmental dose-optimisation programme, which includes automated exposure control, adjustment of the mA and/or kV according to patient size and/or use of iterative reconstruction technique. Dose modulation, iterative reconstruction, and/or weight based adjustment of the mA/kV was utilized to reduce the radiation dose to as low as reasonably achievable. FINDINGS: Vascular: The central p ulmonary artery is normal in calibre. The cardiac chamber demonstrate normal atrioventricular and ventriculoarterial concordance, systemic and pulmonary venous return. The left ventricle is normal in size. Left atrial enlargement is identified. No obvious mitral annular calcification is seen. Coronaryartery origins are normal and diffuse coronary artery calcification is identified. Trace pericardialeffusion is noted. Patient has a diagnosis of aortic stenosis. Aortic valve is tricuspid. Agatston score is 872. Aortic valve area is 63 sq mm. Refer to reformatted data set regarding the location of the aortic valvular calcification that overall is mild in nature. Regarding the aorta, the ascending thoracic aorta has mild calcific atherosclerosis identified near the aortic root and remainder of the ascending thoracic aorta essentially free of calcification. The transverse arch and descending thoracic aorta has mild calcific atherosclerosis identified. The abdominal aorta has scattered calcific atherosclerosis seen though more importantly, protruding noncalcific atheroma is identified, for example, inferior to the left renal artery, at the mid infrarenal level, image 311, the thickness of the atheroma is approximately 7 to 8 mm. Overall, no stenosis is seen. No acute dissection is identified andno contained rupture is noted. Arch vessel branching pattern is normal and the visualised arch vessels are seen to be widely patent proximally. The minimum diameter of the left subclavian artery, image30, with calcific atherosclerosis identified is 5.7 x 6.7 mm in diameter. The minimum diameter of the right subclavian artery, image 33 is 6 mm in diameter. The coeliac axis, SMA, MENDOZA are widely patent. There are single left and right renal arteries that are widely patent with eccentric nonobstructivecalcification seen in the takeoff of the right renal artery. Single left and right renal veins are seen draining normally into the IVC. The common iliac, external iliac, common femoral, and the visualised superficial femoral arteries are patent with scattered calcific atherosclerosis present. Refer tobelow regarding the minimum luminal diameter. There is moderate calcification seen in the left common iliac artery image 408. Dimensions that may be helpful for TAVR as follows: The thoracic aorta hasmild calcific atherosclerosis seen at the level of the aortic root. The major and minor aortic annulus diameter measures 18.6 and 24.0 mm, respectively. The aortic annulus perimeter measured 68 mm and the cross-sectional area measures 361 mm2. The aortic annulus diameter at the traditional LVOT and coronal LVOT measures 18.1 and 22.4 mm, respectively. For reference purpose, per ROSS S3 florencia, recommendation are as follows: CT area between 273 to 345 mm2 (20 mm valve); 338 to 430 mm2 (23 mm valve); 430 to 546 mm2 (26 mm valve); 540 to 683 mm2 (29 mm valve). For reference purpose, per CoreValveEvdevin R florencia, recommendation are as follows: CT perimeter between 56.5-62.8 mm (23 mm valve); 62.8-72.3 mm (26 mm valve); 72.3-81.7 mm (29 mm valve); and 81.7-94.2. mm (34 mm valve). Agatston Score is 872. Aortic valve area is approximately 63 sq mm. The sinus of Valsalva height to the takeoff of the coronary artery, RCC (systole): 11.1 mmThe sinus of Valsalva height to the takeoff of the coronary artery, LCC (diastole): 13.7 mm The sinus of Valsalva diameter, RCC (diastole): 26.7 mmThe sinus of Valsalva diameter, LCC (diastole): 26.0 mmThe sinus of Valsalva diameter, NCC (diastole): 27.0 mm The sinotubular junction measures approximately 22.5 x 23.8 mm. The aortic root angulation measures 40.6 degrees. The angle of delivery is BENINESE 14 CAU 11. The minimal and perpendicular abdominal aortic diameter measure 9.1 and 10.0 mm, respectively, at image 382. There is no evidence of thoracoabdominalaortic aneurysm or stent placement present. The minimum and the perpendicular left common iliac artery measures 4.1 and 6.4 mm, at image 410, respectively with minimal tortuosity and moderate focal calcific atherosclerosis present. The minimum and the perpendicular left external iliac artery measures 6.2 and 6.4 mm, respectively with minimal tortuosity and no calcific atherosclerosis present. Theminimum and the perpendicular left femoral artery measures 5.3 and 6.3 mm, respectively with minimal tortuosity and mild calcific atherosclerosis present. The minimum and the perpendicular right common iliac artery measures 4.7 and 6.8 mm, respectively with minimal tortuosity and moderate diffuse calcific atherosclerosis present. The minimum and the perpendicular right external iliac artery measures 6.3 and 6.9 mm, respectively with minimal tortuosity and minimal calcific atherosclerosis present. The minimum and the perpendicular right femoral artery measures 4.2 and 6.0 mm, respectively with minimal tortuosity and qcjv-le-cjbksenb calcific atherosclerosis present. NONVASCULAR: The visualised thyroid gland is remarkable for punctate calcification in the left thyroid lobe at image 21, less than 1 cm in size, therefore considered not clinically significant. The chest wall and mediastinum appears unremarkable. Calcified lymph nodes are seen indicating prior granulomatous disease. In addition, there is also noncalcified lymph nodes identified, the numbers are more than expected, though itcould represent a spectrum of granulomatous disease. An addendum will be dictated thereafter regarding the significance of this finding. Lymph nodes behind the left atrium are also prominent. In the lung windows, no obvious endobronchial lesion is seen. However, moderate right pleural effusion and mild to moderate left basal pleural effusion is identified, with associated atelectatic changes seen. There is cardiac congestion seen bilaterally, especially in the interlobar septal thickening identifiedwith nonspecific patchy groundglass opacities present. Correlate with clinical examination. Calcified nodules are seen indicating prior granulomatous disease for example in the right upper lobe. Tiny subpleural bleb is identified near the apex. Assessment of pulmonary nodules are limited in that setting of cardiac congestion though there is a 5 mm nodule is identified at image 116 in the peripheral aspect of the left upper lobe. No prior examination is available for comparison. This can be considered follow-up in 6- 12 months time to monitor stability. In the abdomen, the liver and spleen has no acute abnormalities identified. However, even in the AP orientation, the spleen appears to be somewhat prominent measure 13.7 cm in length with calcified granuloma is identified. The liver edge could be slightly serrated. An addendum will be dictated thereafter. No abnormal enhancing structure is appreciated. The gallbladder, the adrenal glands, and the pancreas appears unremarkable. No acute renal pathology is seen and no hydronephrosis or perirenal fluid collection is noted. A simple appearing cyst isidentified in the upper pole of the left kidney, image 263, measure 4.5 x 5.2 cm in diameter. Another cyst is identified in the inferior pole of the right kidney, also with no enhancement after contrast administration and may be proteinaceous in nature. Bowel is not well assessed by CT angiography as enteric contrast not given. No obvious bowel dilation is identified. The uterus is present. Both ovaries identified, slightly greater than 3 cm in size. This can be further assessed by ultrasound scan in six weeks time to document stability taking into account the patient's age group. CT is not optimised in the assessment of pelvic gynecological structures. No free air or free fluid seen abdomen and pelvis. No significant retroperitoneal adenopathy is identified. No acute bony pathology is seen. Some degenerative changes are noted. CONCLUSIONS: 1. Patient has a diagnosis of aortic stenosis. Agatston score is slightly over 800. Aortic valve area by planimetry is approximately 63 sq mm. Only mild calcification seen in the aortic root. No obvious mitral annular calcification is identified. Dimensions that may helpful for TAVR as described above. Calcification is seen predominantly in the left and the right common iliac arteries as described above. Protruding atheroma is identified in the infrarenal abdominal aorta, inferior to the left renal artery, with thickness measure up to 7 to 8 mm, at image 311. 2. Diffuse coronary artery calcification is present. 3. Pulmonary vasculature is prominent suggesting cardiac congestion. Bilateral pleural effusion right greater than left. A 5 mm nodule that can be followed in future examination to document stability in 6-12 months time. Evidence of prior granulomatous disease. 4. Other findings as described above, including some prominence of mediastinal lymph nodes are seen. 5. An addendum will be dictated by the Importer Exporter Radiologist regarding the nonvascular findings. Signed: Jozef Garcia MDReport Verified Date/Time: 12/19/2017 17:44:29 Reading Location: [place] [address], CTA, [id number] 11:24:00Addendum BeginsREPORT STATUS:A Addendum: The non vascular findings were reviewed by the nursing education consultant radiologist. I agree with the original report which is unchanged. The liver iscirrhotic. No hypervascular masses seen on this single phase CT. The spleen is enlarged and containsgranulomas. There is also trace ascites in the pelvis. Minimally enlarged nodes are identified in the upper abdomen, especially the agnes hepatis. Pleural effusions and lower lobe compressive atelectasis are identified. There are patchy pulmonary ground glass opacities scattered bilaterally along with septal thickening which is nodular in some locations. There are enlarged thoracic lymph nodes, particularly in the mediastinum and dejan. A few minimally enlarged anterior diaphragmatic and epicardial lymph nodes are identified. IMPRESSION 1. Please refer to the conclusions reported separately for vascular findings related to TAVR. 2. Cirrhosis and mild portal hypertension. Liver CT or MRI could be performed to further evaluate for mass. 3. Pulmonary groundglass opacities and interlobular septal thickening. Findings may represent cardiogenic edema given history of aortic stenosis. However, this is nonspecific, especially in the presence of thoracic nodes. Lymphangitic spread of neoplasm could havea similar CT appearance. Signed: Cj Thurman MDReport Verified Date/Time: 12/20/2017 11:24:[address] angiography of the thoracoabdominal aorta and pelvicarteries, 19 December 2017 INDICATION: This is a 57 years old female, with a diagnosis of aortic stenosis presents for preprocedure TAVR assessment. This study is performed in attempt to avoid invasive procedure. TECHNIQUE: Spiral position before and during contrast demonstration using a Jed multidetector CT scanner. Multiplanar 3-D volume rendering reformation was performed using independent workstation interactively by the dictating physician and the 3-D specialist. The amount of contrast used and method of administration can be found in the scanned Epic document. This exam was performed according to our departmental dose-optimisation programme, which includes automated exposure control, adjustment of the mA and/or kV according to patient size and/or use of iterative reconstruction technique. Dose modulation, iterative reconstruction, and/or weight based adjustment of the mA/kV was utilized to reduce the radiation dose to as low as reasonably achievable. FINDINGS: Vascular: The central pulmonary artery is normal in calibre. The cardiac chamber demonstrate normal atrioventricular and anival triculoarterial concordance, systemic and pulmonary venous return. The left ventricle is normal in size. Left atrial enlargement is identified. No obvious mitral annular calcification is seen. Coronaryartery origins are normal and diffuse coronary artery calcification is identified. Trace pericardialeffusion is noted. Patient has a diagnosis of aortic stenosis. Aortic valve is tricuspid. Agatston score is 872. Aortic valve area is 63 sq mm. Refer to reformatted data set regarding the location of the aortic valvular calcification that overall is mild in nature. Regarding the aorta, the ascending thoracic aorta has mild calcific atherosclerosis identified near the aortic root and remainder of the a scending thoracic aorta essentially free of calcification. The transverse arch and descending thoracic aorta has mild calcific atherosclerosis identified. The abdominal aorta has scattered calcific atherosclerosis seen though more importantly, protruding noncalcific atheroma is identified, for example, inferior to the left renal artery, at the mid infrarenal level, image 311, the thickness of the atheroma is approximately 7 to 8 mm. Overall, no stenosis is seen. No acute dissection is identified andno contained rupture is noted. Arch vessel branching pattern is normal and the visualised arch vessels are seen to be widely patent proximally. The minimum diameter of the left subclavian artery, image30, with calcific atherosclerosis identified is 5.7 x 6.7 mm in diameter. The minimum diameter of the right subclavian artery, image 33 is 6 mm in diameter. The coeliac axis, SMA, MENDOZA are widely patent. There are single left and right renal arteries that are widely patent with eccentric nonobstructive calcification seen in the takeoff of the right renal artery. Single left and right renal veins are seen draining normally into the IVC. The common iliac, external iliac, common femoral, and the visualised superficial femoral arteries are patent with scattered calcific atherosclerosis present. Refer hosseinelow regarding the minimum luminal diameter. There is moderate calcification seen in the left common iliac artery image 408. Dimensions that may be helpful for TAVR as follows: The thoracic aorta hasmild calcific atherosclerosis seen at the level of the aortic root. The major and minor aortic annulus diameter measures 18.6 and 24.0 mm, respectively. The aortic annulus perimeter measured 68 mm and the cross-sectional area measures 361 mm2. The aortic annulus diameter at the traditional LVOT and coronal LVOT measures 18.1 and 22.4 mm, respectively. For reference purpose, per ROSS S3 brochure, recommendation are as follows: CT area between 273 to 345 mm2 (20 mm valve); 338 to 430 mm2 (23 mm valve); 430 to 546 mm2 (26 mm valve); 540 to 683 mm2 (29 mm valve). For reference purpose, per Rosita don, recommendation are as follows: CT perimeter between 56.5-62.8 mm (23 mm valve); 62.8-72.3 mm (26 mm valve); 72.3-81.7 mm (29 mm valve); and 81.7-94.2. mm (34 mm valve). Agatston Score is 872. Aortic valve area is approximately 63 sq mm. The sinus of Valsalva height to the takeoff of the coronary artery, RCC (systole): 11.1 mmThe sinus of Valsalva height to the takeoff of the coronary artery, LCC (diastole): 13.7 mm The sinus of Valsalva diameter, RCC (diastole): 26.7 mmThe sinus of Valsalva diameter, LCC (diastole): 26.0 mmThe sinus of Valsalva diameter, NCC (diastole): 27.0 mm The sinotubular junction measures approximately 22.5 x 23.8 mm. The aortic root angulation measures 40.6 degrees. The angle of delivery is BENINESE 14 CAU 11. The minimal and perpendicular abdominal aortic diameter measure 9.1 and 10.0 mm, respectively, at image 382. There is no evidence of thoracoabdominalaortic aneurysm or stent placement present. The minimum and the perpendicular left common iliac artery measures 4.1 and 6.4 mm, at image 410, respectively with minimal tortuosity and moderate focal calcific atherosclerosis present. The minimum and the perpendicular left external iliac artery measures 6.2 and 6.4 mm, respectively with minimal tortuosity and no calcific atherosclerosis present. Theminimum and the perpendicular left femoral artery measures 5.3 and 6.3 mm, respectively with minimal tortuosity and mild calcific atherosclerosis present. The minimum and the perpendicular right common iliac artery measures 4.7 and 6.8 mm, respectively with minimal tortuosity and moderate diffuse calcific atherosclerosis present. The minimum and the perpendicular right external iliac artery measures 6.3 and 6.9 mm, respectively with minimal tortuosity and minimal calcific atherosclerosis present. The minimum and the perpendicular right femoral artery measures 4.2 and 6.0 mm, respectively with minimal tortuosity and tlbz-us-kwjmogsm calcific atherosclerosis present. NONVASCULAR: The visualised thyroid gland is remarkable for punctate calcification in the left thyroid lobe at image 21, less than 1 cm in size, therefore considered not clinically significant. The chest wall and mediastinum appears unremarkable. Calcified lymph nodes are seen indicating prior granulomatous disease. In additi on, there is also noncalcified lymph nodes identified, the numbers are more than expected, though itcould represent a spectrum of granulomatous disease. An addendum will be dictated thereafter regarding the significance of this finding. Lymph nodes behind the left atrium are also prominent. In the lung windows, no obvious endobronchial lesion is seen. However, moderate right pleural effusion and mild to moderate left basal pleural effusion is identified, with associated atelectatic changes seen. There is cardiac congestion seen bilaterally, especially in the interlobar septal thickening identifiedwith nonspecific patchy groundglass opacities present. Correlate with clinical examination. Calcified nodules are seen indicating prior granulomatous disease for example in the right upper lobe. Tiny subpleural bleb is identified near the apex. Assessment of pulmonary nodules are limited in that setting of cardiac congestion though there is a 5 mm nodule is identified at image 116 in the peripheral aspect of the left upper lobe. No prior examination is available for comparison. This can be considered follow-up in 6-12 months time to monitor stability. In the abdomen, the liver and spleen has no acute abnormalities identified. However, even in the AP orientation, the spleen appears to be somewhat prominent measure 13.7 cm in length with calcified granuloma is identified. The liver edge could be slightly serrated. An addendum will be dictated thereafter. No abnormal enhancing structure is appreciated. The gallbladder, the adrenal glands, and the pancreas appears unremarkable. No acute renal pathology is seen and no hydronephrosis or perirenal fluid collection is noted. A simple appearing cyst isidentified in the upper pole of the left kidney, image 263, measure 4.5 x 5.2 cm in diameter. Another cyst is identified in the inferior pole of the right kidney, also with no enhancement after contrast administration and may be proteinaceous in nature. Bowel is not well assessed by CT angiography as enteric contrast not given. No obvious bowel dilation is identified. The uterus is present. Both ovaries identified, slightly greater than 3 cm in size. This can be further assessed by ultrasound scan in six weeks time to document stability taking into account the patient's age group. CT is not optimised in the assessment of pelvic gynecological structures. No free air or free fluid seen abdomen and pelvis. No significant retroperitoneal adenopathy is identified. No acute bony pathology is seen. Some degenerative changes are noted. CONCLUSIONS: 1. Patient has a diagnosis of aortic stenosis. Agatston score is slightly over 800. Aortic valve area by planimetry is approximately 63 sq mm. Only mild calcification seen in the aortic root. No obvious mitral annular calcification is identified. Dimensio ns that may helpful for TAVR as described above. Calcification is seen predominantly in the left and the right common iliac arteries as described above. Protruding atheroma is identified in the infrarenal abdominal aorta, inferior to the left renal artery, with thickness measure up to 7 to 8 mm, at im age 311. 2. Diffuse coronary artery calcification is present. 3. Pulmonary vasculature is prominent suggesting cardiac congestion. Bilateral pleural effusion right greater than left. A 5 mm nodule that can be followed in future examination to document stability in 6-12 months time. Evidence of prior granulomatous disease. 4. Other findings as described above, including some prominence of mediastinal lymph nodes are seen. 5. An addendum will be dictated by the Importer Exporter Radiologist regarding the nonvascular findings. Signed: Jozef Garcia Verified Date/Time: 12/19/2017 17:44:29 Reading Location: [place] [address] Cardiology MRI [id number] 10:49:00 Test Item Value Reference Range Interpretation Comments ACTIVATED CLOTTING TIME 301 sec TEST ED AT [place] [address] ([facility]) (test code = [facility]A [facility] 441) [id number] POCT-GLUCOSE [id number] 08:38:00 Test Item Value Reference Range Interpretation Comments POC-GLUCOSE METER 102 mg/dL 70-110 TESTED AT [place] [address] ([facility]) (test code = [facility] 1538) [id number] BASIC METABOLIC [id number] 07:34:00 Test Item Value Reference Range Interpretation Comments SODIUM ([facility]) 133 meq/L 136-145 L (test code = 381) POTASSIUM ([facility]) 4.3 meq/L 3.5-5.1 (test code = 379) CHLORIDE (BEAKER) 96 meq/L 98-107 L (test code = 382) CO2 (BEAKER) (test 28 meq/L 22-29 code = 355) BLOOD UREA NITROGEN 8 mg/dL 7-21 (BEAKER) (test code = 354) CREATININE (BEAKER) 0.67 mg/dL 0.57-1.25 (test code = 358) GLUCOSE RANDOM 93 mg/dL 70-105 (BEAKER) (test code = 652) CALCIUM (BEAKER) 8.3 mg/dL 8.4-10.2 L (test code = 697) EGFR (BEAKER) (test 90 mL/min/1.73 ESTIMA TERESA GFR IS code = 1092) sq m NOT ACCURATE CREATININE CLEARANCE IN PREDICTING GLOMERULAR FILTRATION RATE . ESTIMATED GFR I S NOT APPLICABLE FOR DIALYSIS PATICHRISTIANNE DASILVA [id number] 07:09:00 Test Item Value Reference Range Interpretation Comments PARTIAL THROMBOPLASTIN TIME 33.1 seconds 22.5-36.0 ([facility]) (test code = 760) POCT-GLUCOSE [id number] 21:31:00 Test Item Value Reference Range Interpretation Comments POC-GLUCOSE METER 110 mg/dL 70-110 TESTED AT [place] [address] ([facility]) (test code = [facility]A [facility] 1538) [id number] POCT-GLUCOSE [id number] 18:28:00 Test Item Value Reference Range Interpretation Comments POC-GLUCOSE METER 151 mg/dL 70-110 H TESTED AT [place] [address] ([facility]) (test code = [facility]A [facility] 1538) [id number] POCT-GLUCOSE [id number] 11:54:00 Test Item Value Reference Range Interpretation Comments POC-GLUCOSE METER 101 mg/dL 70-110 TESTED AT [place] [address] ([facility]) (test code = E[facility]ON[facility]A [facility] 1538) [id number] CBC W/PLT COUNT & AUTO [id number] 10:35:00 Test Item Value Reference Range Interpretation Comments WHITE BLOOD CELL COUNT (BEAKER) 3.5 K/ L 3.5-10.5 (test code = 775) RED BLOOD CELL COUNT (BEAKER) 4.30 M/ L 3.93-5.22 (test code = 761) HEMOGLOBIN (BEAKER) (test code = 9.1 GM/DL 11.2-15.7 L 410) HEMATOCRIT (BEAKER) (test code = 31.8 % 34.1-44.9 L 411) MEAN CORPUSCULAR VOLUME (BEAKER) 74.0 fL 79.4-94.8 L (test code = 753) MEAN CORPUSCULAR HEMOGLOBIN 21.2 pg 25.6-32.2 L (BEAKER) (test code = 751) MEAN CORPUSCULAR HEMOGLOBIN CONC 28.6 GM/DL 32.2-35.5 L (BEAKER) (test code = 752) RED CELL DISTRIBUTION WIDTH 24.2 % 11.7-14.4 H (BEAKER) (test code = 412) PLATELET COUNT (BEAKER) (test 134 K/CU MM 150-450 L code = 756) MEAN PLATELET VOLUME (BEAKER) 9.8 fL 9.4-12.3 (test code = 754) NUCLEATED RED BLOOD CELLS 0 /100 WBC 0-0 (BEAKER) (test code = 413) NEUTROPHILS RELATIVE PERCENT 66 % (BEAKER) (test code = 429) LYMPHOCYTES RELATIVE PERCENT 22 % (BEAKER) (test code = 430) MONOCYTES RELATIVE PERCENT 9 % (BEAKER) (test code = 431) EOSINOPHILS RELATIVE PERCENT 0 % (BEAKER) (test code = 432) BASOPHILS RELATIVE PERCENT 1 % (BEAKER) (test code = 437) NEUTROPHILS ABSOLUTE COUNT 2.32 K/ L 1.56-6.13 (BEAKER) (test code = 670) LYMPHOCYTES ABSOLUTE COUNT 0.78 K/ L 1.18-3.74 L (BEAKER) (test code = 414) MONOCYTES ABSOLUTE COUNT (BEAKER) 0.33 K/ L 0.24-0.36 (test code = 415) EOSINOPHILS ABSOLUTE COUNT 0.01 K/ L 0.04-0.36 L (BEAKER) (test code = 416) BASOPHILS ABSOLUTE COUNT (BEAKER) 0.02 K/ L 0.01-0.08 (test code = 417) IMMATURE GRANULOCYTES-RELATIVE 1 % 0-1 PERCENT (BEAKER) (test code = 2801) HEMOGLOBIN [id number] 08:59:00 Test Item Value Reference Range Interpretation Comments HEMOGLOBIN A1C (BEAKER) (test code = 5.0 % 4.3-6.1 368) POCT-GLUCOSE [id number] 07:53:00 Test Item Value Reference Range Interpretation Comments POC-GLUCOSE METER 103 mg/dL 70-110 TESTED AT [facility] 67[address] (BEAKER) (test code = ELEONORA DEJESUS 1538) [id number] IRON, TIBC, % SAT. (WITHOUT FERRITIN)2017-12-19 07:26:00 Test Item Value Reference Range Interpretation Comments IRON (BEAKER) (test code = 547) 23 ug/dL 40-160 L TOTAL IRON BINDING CAPACITY 349 ug/dL 250-450 (BEAKER) (test code = 769) IRON % SATURATION (2) (BEAKER) 7 % 20-55 L (test code = 2590) [id number] 07:12:00 Test Item Value Reference Range Interpretation Comments FERRITIN (BEAKER) (test code = 361) 809 ng/mL 5-275 H LIPID [id number] 06:54:00 Test Item Value Reference Range Interpretation Comments TRIGLYCERIDES (BEAKER) (test code = 144 mg/dL 540) CHOLESTEROL (BEAKER) (test code = 111 mg/dL 631) HDL CHOLESTEROL (BEAKER) (test code 20 mg/dL = 976) LDL CHOLESTEROL CALCULATED (BEAKER) 62 mg/dL (test code = 633) Triglyceride Reference Range: Low Risk <150 Borderline 150-199 High Risk 200-499 Very High Risk >=500Cholesterol Reference Range: Low Risk <200 Borderline 200-239 High Risk >240HDL Cholesterol Reference Range: Low Risk >=60 High Risk <40LDL Cholesterol Reference Range: Optimal <100 Near Optimal 100-129 Borderline 130-159 High 160-189 Very High >=190[facility] [id number] 06:54:00 Test Item Value Reference Range Interpretation Comments SODIUM (BEAKER) 128 meq/L 136-145 L (test code = 381) POTASSIUM (BEAKER) 4.2 meq/L 3.5-5.1 (test code = 379) CHLORIDE (BEAKER) 93 meq/L 98-107 L (test code = 382) CO2 (BEAKER) (test 29 meq/L 22-29 code = 355) BLOOD UREA NITROGEN 8 mg/dL 7-21 (BEAKER) (test code = 354) CREATININE (BEAKER) 0.68 mg/dL 0.57-1.25 (test code = 358) GLUCOSE RANDOM 94 mg/dL 70-105 (BEAKER) (test code = 652) CALCIUM (BEAKER) 8.5 mg/dL 8.4-10.2 (test code = 697) EGFR (BEAKER) (test 89 mL/min/1.73 ESTIMA TERESA GFR IS code = 1092) sq m NOT ACCURATE CREATININE CLEARANCE IN PREDICTING GLOMERULAR FILTRATION RATE . ESTIMATED GFR I S NOT APPLICABLE FOR DIALYSIS PATIEN TS. [id number] 06:54:00 Test Item Value Reference Range Interpretation Comments MAGNESIUM (BEAKER) (test code = 1.8 mg/dL 1.6-2.6 627) [id number] 06:54:00 Test Item Value Reference Range Interpretation Comments PHOSPHORUS (BEAKER) (test code = 3.1 mg/dL 2.3-4.7 604) CREATINE KINASE (CK), TOTAL AND [id number] 06:54:00 Test Item Value Reference Range Interpretation Comments CREATINE KINASE TOTAL (BEAKER) 38 U/L 29-200 (test code = 380) CREATINE KINASE-MB (BEAKER) (test 0.9 ng/mL 0.0-6.6 code = 750) CREATINE KINASE-MB INDEX (BEAKER) 2.4 % (test code = 395) CK-MB Reference Range:<6.7 Normal6.7-10.0 Borderline>10.0 AbnormalRETICULOCYTE [id number] 06:26:00 Test Item Value Reference Range Interpretation Comments RETICULOCYTE COUNT PCT (BEAKER) (test 2.5 % 0.5-1.7 H code = 575) URINALYSIS W/ [id number] 00:52:00 Test Item Value Reference Range Interpretation Comments COLOR (BEAKER) (test code = 470) Yellow CLARITY (BEAKER) (test code = 469) Clear SPECIFIC GRAVITY UA (BEAKER) (test < 1.001-1.035 code = 468) PH UA (BEAKER) (test code = 467) 5.5 5.0-8.0 PROTEIN UA (BEAKER) (test code = Negative Negative 464) GLUCOSE UA (BEAKER) (test code = Negative Negative 365) KETONES UA (BEAKER) (test code = Negative Negative 371) BILIRUBIN UA (BEAKER) (test code = Negative Negative 462) BLOOD UA (BEAKER) (test code = 461) Small Negative A NITRITE UA (BEAKER) (test code = Negative Negative 465) LEUKOCYTE ESTERASE UA (BEAKER) Moderate Negative A (test code = 466) UROBILINOGEN UA (BEAKER) (test code 2.0 mg/dL 0.2-1.0 H = 463) RBC UA (BEAKER) (test code = 519) < /HPF WBC UA (BEAKER) (test code = 520) 7 /HPF MUCUS (BEAKER) (test code = 1574) Rare SQUAMOUS EPITHELIAL (BEAKER) (test < /HPF code = 516) AMORPHOUS CRYSTALS (BEAKER) (test Rare code = 1584) SOURCE(BEAKER) (test code = 2795) RAD, CHEST, 1 VIEW, NON [id number] 22:59:00Reason for exam:->crackles on examShould this be performed at the bedside?->YesFINAL REPORT RAD, CHEST, 1 VIEW, NON DEPT INDICATION: crackles on exam COMPARISON: None TECHNIQUE: Single frontal view of the chest. IMPRESSION:Prominent cardiac silhouette.Diffuse bilateral interstitial opacities which could reflect an interstitial pneumonitis or interstitial edema.Possible small bilateral effusions.No pneumothorax.Atelectasis in the mid left hemithorax.Calcified granuloma in the mid to upper right hemithorax.No acute osseous abnormality. Signed: Gennaro Alonzo MDReport Verified Date/Time: 12/18/2017 22:59:11 Reading Location: [facility] B1 C013X Ortho Consult Reading Room (MANUAL DIFFERENTIAL) 2017-12-18 22:10:00 Test Item Value Reference Range Interpretation Comments NEUTROPHILS - REL (DIFF) (BEAKER) 69 % (test code = 1359) LYMPHOCYTES - REL (DIFF) (BEAKER) 22 % (test code = 1360) MONOCYTES - REL (DIFF) (BEAKER) 6 % (test code = 1361) BASOPHILS - REL (DIFF) (BEAKER) 1 % (test code = 1363) BANDS - REL (DIFF) (BEAKER) (test 2 % 0-10 code = 1348) NEUTROPHILS - ABS (DIFF) (BEAKER) 2.00 K/ L 1.80-8.00 (test code = 1365) LYMPHOCYTES - ABS (DIFF) (BEAKER) 0.64 K/ L 1.48-4.50 L (test code = 1366) MONOCYTES - ABS (DIFF) (BEAKER) 0.17 K/ L 0.00-1.30 (test code = 1367) BASOPHILS - ABS (DIFF) (BEAKER) 0.03 K/ L 0.00-0.20 (test code = 1369) BANDS-ABS (DIFF) (BEAKER) (test 0.1 K/ L 0.0-0.8 code = 1349) TOTAL COUNTED (BEAKER) (test code = 100 1351) BANDS + SEGMENTED NEUTROPHILS 2.06 (BEAKER) (test code = 1352) WBC MORPHOLOGY (BEAKER) (test code Normal = 487) PLT MORPHOLOGY (BEAKER) (test code Normal = 486) RBC MORPHOLOGY (BEAKER) (test code Normal = 762) CBC W/PLT COUNT & AUTO [id number] 22:09:00 Test Item Value Reference Range Interpretation Comments WHITE BLOOD CELL COUNT (BEAKER) 2.9 K/ L 3.5-10.5 L (test code = 775) RED BLOOD CELL COUNT (BEAKER) 3.87 M/ L 3.93-5.22 L (test code = 761) HEMOGLOBIN (BEAKER) (test code = 8.4 GM/DL 11.2-15.7 L 410) HEMATOCRIT (BEAKER) (test code = 28.3 % 34.1-44.9 L 411) MEAN CORPUSCULAR VOLUME (BEAKER) 73.1 fL 79.4-94.8 L (test code = 753) MEAN CORPUSCULAR HEMOGLOBIN 21.7 pg 25.6-32.2 L (BEAKER) (test code = 751) MEAN CORPUSCULAR HEMOGLOBIN CONC 29.7 GM/DL 32.2-35.5 L (BEAKER) (test code = 752) RED CELL DISTRIBUTION WIDTH 23.7 % 11.7-14.4 H (BEAKER) (test code = 412) PLATELET COUNT (BEAKER) (test 116 K/CU MM 150-450 L code = 756) MEAN PLATELET VOLUME (BEAKER) 9.1 fL 9.4-12.3 L (test code = 754) NUCLEATED RED BLOOD CELLS 0 /100 WBC 0-0 (BEAKER) (test code = 413) IMMATURE GRANULOCYTES-RELATIVE 1 % 0-1 PERCENT (BEAKER) (test code = 2801) B-TYPE NATRIURETIC FACTOR (BNP)2017-12-18 22:07:00 Test Item Value Reference Range Interpretation Comments B-TYPE NATRIURETIC PEPTIDE 1162 pg/mL 0-100 H (BEAKER) (test code = 700) [id number] 22:06:00 Test Item Value Reference Range Interpretation Comments PHOSPHORUS (BEAKER) (test code = 2.9 mg/dL 2.3-4.7 604) [id number] 22:06:00 Test Item Value Reference Range Interpretation Comments MAGNESIUM (BEAKER) (test code = 1.3 mg/dL 1.6-2.6 L 627) BASIC METABOLIC [id number] 22:06:00 Test Item Value Reference Range Interpretation Comments SODIUM (BEAKER) 126 meq/L 136-145 L (test code = 381) POTASSIUM (BEAKER) 3.5 meq/L 3.5-5.1 (test code = 379) CHLORIDE (BEAKER) 94 meq/L 98-107 L (test code = 382) CO2 (BEAKER) (test 26 meq/L 22-29 code = 355) BLOOD UREA NITROGEN 9 mg/dL 7-21 (BEAKER) (test code = 354) CREATININE (BEAKER) 0.61 mg/dL 0.57-1.25 (test code = 358) GLUCOSE RANDOM 87 mg/dL 70-105 (BEAKER) (test code = 652) CALCIUM (BEAKER) 8.1 mg/dL 8.4-10.2 L (test code = 697) EGFR (BEAKER) (test 100 mL/min/1.73 ESTIM ATED GFR IS code = 1092) sq m NOT ACCURATE CREATININE CLEARANCE IN PREDICTING GLOMERULAR FILTRATION RATE . ESTIMATED GFR I S NOT APPLICABLE FOR DIALYSIS PATIEN TS. HEPATIC FUNCTION [id number] 22:06:00 Test Item Value Reference Range Interpretation Comments TOTAL PROTEIN (BEAKER) (test code = 7.0 gm/dL 6.0-8.3 770) ALBUMIN (BEAKER) (test code = 1145) 3.2 g/dL 3.5-5.0 L BILIRUBIN TOTAL (BEAKER) (test code 0.5 mg/dL 0.2-1.2 = 377) BILIRUBIN DIRECT (BEAKER) (test 0.3 mg/dL 0.1-0.5 code = 706) ALKALINE PHOSPHATASE (BEAKER) (test 80 U/L 40-150 code = 346) AST (SGOT) (BEAKER) (test code = 17 U/L 5-34 353) ALT (SGPT) (BEAKER) (test code = 7 U/L 6-55 347) CREATINE KINASE (CK), TOTAL AND [id number] 22:06:00 Test Item Value Reference Range Interpretation Comments CREATINE KINASE TOTAL (BEAKER) 44 U/L 29-200 (test code = 380) CREATINE KINASE-MB (BEAKER) (test 1.0 ng/mL 0.0-6.6 code = 750) CREATINE KINASE-MB INDEX (BEAKER) 2.3 % (test code = 395) CK-MB Reference Range:<6.7 Normal6.7-10.0 Borderline>10.0 AbnormalTROPONIN [id number] 22:06:00 Test Item Value Reference Range Interpretation Comments TROPONIN I (BEAKER) (test code = 397) < ng/mL 0.00-0.03 Troponin I (TnI) levels must be interpreted in the context of the presenting symptoms and the clinical findings. Elevated TnI levels indicate myocardial damage, but are not specific for ischemic heart disease. Elevated TnI levels are seen in patients with other cardiac conditions (including myocarditis and congestive heart failure), and slight TnI elevations occur in patients with other conditions, including sepsis, renal failure, acidosis, acute neurological disease, and persistent tachyarrhythmia.
--- NOTE | 2021-03-26 13:49 | RAD REPORT ---
EXAM DESCRIPTION: CT - Pelvis Wo Cont - 03/26/2021 1:29 pm CLINICAL HISTORY: Pelvic pain status post fall COMPARISON: None. TECHNIQUE: Computed axial tomography of the pelvis was obtained. Coronal and sagittal reconstruction performed All CT scans are performed using dose optimization technique as appropriate and may include automated exposure control or mA/KV adjustment according to patient size. FINDINGS: Nondisplaced fracture left inferior pubic ramus No dislocation. Muscles are normal size and density. A subcutaneous contusion is not noted 1 centimeter subchondral cyst right ilium. IMPRESSION: Nondisplaced fracture left inferior pubic ramus
--- NOTE | 2021-03-26 14:08 | EDPHYS ---
Physician Documentation [facility] Name: Allie Leroy Age: 60 yrs Sex: Female : 1960 Arrival Date: 03/26/2021 Time: 12:40 Bed 6 Private MD: Razia Donald ED Physician Balta Varela HPI: 03/26 13:44 This 60 yrs old Female presents to ER via Wheelchair with complaints of kb tailbone pain, Fall Injury. 13:44 The patient presents with pain that is acute, and tenderness. The symptoms are located kb in the coccyx area. The pain radiates to the left femoral area and left inguinal area. The problem was sustained during a fall, while walking. Onset: The symptoms/episode began/occurred this morning. Modifying factors: The patient symptoms are alleviated by rest, the patient symptoms are aggravated by any movement. Associated signs and symptoms: The patient has no apparent associated signs or symptoms. Severity of symptoms: At their worst the symptoms were moderate, in the emergency department the symptoms have improved, mildly. The patient has not experienced similar symptoms in the past. Pt reports she pivoted in the house this morning causing her to fall onto her buttocks. Reports pain to tailbone that radiates through pelvis on the left side. Denies any other symptoms. Ambulatory with pain. Pain 3/10 when at rest, 8+/10 with movement. 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 - Social history:: Smoking status: Patient/guardian denies using tobacco, the patient reports quitting approximately 3 years ago. ROS: 13:41 Back: Positive for pain at rest, pain with movement, radiated pain, of the sacrum. kb 13:41 Constitutional: Negative for fever, chills, and weight loss. kb 13:41 All other systems are negative. Exam: 13:41 Constitutional: This is a well developed, well nourished patient who is awake, alert, kb and in no acute distress. Head/Face: Normocephalic, atraumatic. Respiratory: Respirations even and unlabored. No increased work of breathing, no retractions or nasal flaring. Abdomen/GI: Soft, non-tender. No distention Skin: Warm, dry with normal turgor. Normal color. MS/ Extremity: Pulses equal, no cyanosis. Neurovascular intact. Full, normal range of motion. Neuro: Awake and alert, GCS 15, oriented to person, place, time, and situation. Moves all extremities. Normal gait. Psych: Awake, alert, with orientation to person, place and time. Behavior, mood, and affect are within normal limits. 13:41 Back: pain, that is moderate, of the sacrum, ROM is painful, with all movement, normal spinal alignment noted. Vital Signs: 12:46 BP 104 / 64; Pulse 84; Resp 17 S; Temp 97.3(TE); Pulse Ox 98% on R/A; Weight 81.65 kg jd3 (R); Height 5 ft. 6 in. (167.64 cm) (R); Pain 8/10; 13:03 BP 120 / 63; Pulse 82; Resp 18; Pulse Ox 99% on R/A; Pain 3/10; ap3 14:30 BP 100 / 81; Pulse 79; Resp 19; Pulse Ox 99% on R/A; Pain 3/10; ap3 12:46 Body Mass Index 29.05 (81.65 kg, 167.64 cm) jd3 MDM: 12:57 Patient medically screened. lisa 13:41 Data reviewed: vital signs, nurses notes. Data interpreted: Pulse oximetry: on room air kb is 99 %. Interpretation: normal. 14:06 Counseling: I had a detailed discussion with the patient and/or guardian regarding: the kb historical points, exam findings, and any diagnostic results supporting the discharge/admit diagnosis, radiology results, the need for outpatient follow up, a family practitioner, to return to the emergency department if symptoms worsen or persist or if there are any questions or concerns that arise at home. 03/26 13:08 Order name: CT Pelvis wo Cont; Complete Time: 13:53 kb 03/26 14:06 Order name: Misc. Order: walker; Complete Time: 14:30 kb Administered Medications: 14:29 Drug: [place] (HYDROcodone-acetaminophen) (7.5 mg-325 mg) 1 tabs Route: PO; ap3 14:30 Follow up: Response: No adverse reaction; RASS: Alert and Calm (0) ap3 Disposition: 03/27 07:47 Co-signature as Attending Physician, Balta Varela MD I agree with the assessment and [facility] plan of care. Disposition: 03/26/21 14:07 Discharged to Home. Impression: Nondisplaced fracture left inferior pubic ramus. - Condition is Stable. - Discharge Instructions: Simple Pelvic Fracture, Adult. - Prescriptions for Tramadol 50 mg Oral Tablet - take 1 tablet by ORAL route every 8 hours as needed; 16 tablet. - Medication Reconciliation Form, Thank You Letter, Antibiotic Education, Prescription Opioid Use form. - Follow up: Emergency Department; When: As needed; Reason: Worsening of condition. Follow up: Private Physician; When: 2 - 3 days; Reason: Recheck today's complaints, Continuance of care, Re-evaluation by your physician. Signatures: Dispatcher [employer] EDMS Cynthia Pacheco, SENIOR ACTUARIAL ANALYST-C SENIOR ACTUARIAL ANALYST-Balta To MD MD cha Davies, Jonathon, RN RN jd3 Prokisch, Amanda, RN RN ap3 Corrections: (The following items were deleted from the chart) 03/26 13:44 13:41 Constitutional: Negative for fever, chills, and weight loss, Respiratory: kb Negative for shortness of breath, cough, wheezing, and pleuritic chest pain, Abdomen/GI: Negative for abdominal pain, nausea, vomiting, diarrhea, and constipation, : Negative for injury, bleeding, discharge, and swelling, MS/Extremity: Negative for injury and deformity, Skin: Negative for injury, rash, and discoloration, Neuro: Negative for headache, weakness, numbness, tingling, and seizure, kb 14:31 14:07 03/26/2021 14:07 Discharged to Home. Impression: Nondisplaced fracture left ap3 inferior pubic ramus. Condition is Stable. Forms are Medication Reconciliation Form, Thank You Letter, Antibiotic Education, Prescription Opioid Use. Follow up: Emergency Department; When: As needed; Reason: Worsening of condition. Follow up: Private Physician; When: 2 - 3 days; Reason: Recheck today's complaints, Continuance of care, Re-evaluation by your physician. kb
--- NOTE | 2021-03-26 14:08 | ER ---
Nurse's Notes [facility] Name: Allie Leroy Age: 60 yrs Sex: Female : 1960 Arrival Date: 03/26/2021 Time: 12:40 Bed 6 Private MD: Razia Donald Diagnosis: Nondisplaced fracture left inferior pubic ramus Presentation: 03/26 12:44 Chief complaint: Patient states: "I fell early today in my dinning room and I hit my jd3 left side of my backside and hurt my tailbone. it has steadily gotten worse.". Coronavirus screen: At this time, the client does not indicate any symptoms associated with coronavirus-19. Ebola Screen: Patient negative for fever greater than or equal to 101.5 degrees Fahrenheit, and additional compatible Ebola Virus Disease symptoms. Initial Sepsis Screen: Does the patient meet any 2 criteria? No. Patient's initial sepsis screen is negative. Does the patient have a suspected source of infection? No. Patient's initial sepsis screen is negative. Risk Assessment: Do you want to hurt yourself or someone else? Patient reports no desire to harm self or others. Onset of symptoms was March 26, 2021. 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 - Social history:: Smoking status: Patient/guardian denies using tobacco, the patient reports quitting approximately 3 years ago. Screenin:02 Abuse screen: Denies threats or abuse. Nutritional screening: No deficits noted. ap3 Tuberculosis screening: No symptoms or risk factors identified. Fall Risk Fall in past 12 months (25 points). Secondary diagnosis (15 points) impaired mobility, No IV (0 pts). Ambulatory Aid- None/Bed Rest/Nurse Assist (0 pts). Gait- Weak (10 pts.). Mental Status- Oriented to own ability (0 pts). Total Henao Fall Scale indicates High Risk Score (45 or more points). Fall prevention measures have been instituted. Side Rails Up X 2 Placed Close to Nursing Station Frequent Obs/Assessments Occuring Family Present and informed to notify staff if the need to leave the bedside As available patient and family educated on Fall Prevention Program and Strategies. Assessment: 12:58 General: Appears in no apparent distress. uncomfortable, Behavior is calm, cooperative, ap3 appropriate for age. Pain: Complains of pain in left hip Pain currently is 3 out of 10 on a pain scale. at worst was 7 out of 10 on a pain scale. Alleviated by rest, Aggravated by increased activity, repositioning. Neuro: Level of Consciousness is awake, alert, obeys commands, Oriented to person, place, time, situation. Cardiovascular: Capillary refill < 3 seconds Patient's skin is warm and dry. Pulses are all present. Respiratory: Airway is patent Respiratory effort is even, unlabored, Respiratory pattern is regular, symmetrical. GI: No signs and/or symptoms were reported involving the gastrointestinal system. : No signs and/or symptoms were reported regarding the genitourinary system. EENT: No signs and/or symptoms were reported regarding the EENT system. Musculoskeletal: Amputation of left fifth toe. Reports pain in left hip. Injury Description: PATIENT STATES SHE FELL THIS MORNING AND LANDED ON HER LEFT HIP. Vital Signs: 12:46 BP 104 / 64; Pulse 84; Resp 17 S; Temp 97.3(TE); Pulse Ox 98% on R/A; Weight 81.65 kg jd3 (R); Height 5 ft. 6 in. (167.64 cm) (R); Pain 8/10; 13:03 BP 120 / 63; Pulse 82; Resp 18; Pulse Ox 99% on R/A; Pain 3/10; ap3 14:30 BP 100 / 81; Pulse 79; Resp 19; Pulse Ox 99% on R/A; Pain 3/10; ap3 12:46 Body Mass Index 29.05 (81.65 kg, 167.64 cm) jd3 ED Course: 12:40 Patient arrived in ED. am2 12:40 Razia Donald FNP-C is Private Physician. am2 12:45 Triage completed. jd3 12:47 Ana Pham RN is Primary Nurse. ap3 12:47 Arm band placed on. jd3 12:57 Cynthia Pacheco FNP-C [facility]. kb 12:57 Balta Varela MD is Attending Physician. kb 13:03 Patient has correct armband on for positive identification. Bed in low position. Call ap3 light in reach. Side rails up X2. Adult w/ patient. Pulse ox on. NIBP on. Door closed. Noise minimized. Warm blanket given. 13:28 CT Pelvis wo Cont In Process Unspecified. EDMS 14:31 No provider procedures requiring assistance completed. Patient did not have IV access ap3 during this emergency room visit. Administered Medications: 14:29 Drug: [place] (HYDROcodone-acetaminophen) (7.5 mg-325 mg) 1 tabs Route: PO; ap3 14:30 Follow up: Response: No adverse reaction; RASS: Alert and Calm (0) ap3 Outcome: 14:07 Discharge ordered by . kb 14:31 Discharged to home via wheelchair, with significant other. ap3 14:31 Condition: stable 14:31 Discharge instructions given to patient, significant other, Instructed on discharge instructions, follow up and referral plans. medication usage, Demonstrated understanding of instructions, follow-up care, medications, Prescriptions given X 1. 14:31 Patient left the ED. ap3 Signatures: Dispatcher [employer] EDMS Cynthia Pacheco FNP-C FNP-Ckb Moreno, Amanda am2 Geremias Arnold RN RN j Ana Pham RN RN ap3
[2021-03-26] MEDS ORDERED: HYDROCODONE/APAP 7.5/325 MG TAB ONE (14:32)
[2021-03-26 14:39] VITALS: TEMP 97.3
[2021-03-26 14:40] VITALS: O2SAT 99
[2021-03-26 14:42] VITALS: BP 100/81
== END 2021-03-26 14:31 | disposition home or self-care (01) ==
LOC: ER 12:32
DX: S32.592A Other specified fracture of left pubis, initial encounter for closed fracture (principal); Z87.891 Personal history of nicotine dependence; I11.0 Hypertensive heart disease with heart failure; I50.9 Heart failure, unspecified; E11.9 Type 2 diabetes mellitus without complications; Z79.84 Long term (current) use of oral hypoglycemic drugs; W19.XXXA Unspecified fall, initial encounter; Y92.009 Unspecified place in unspecified non-institutional (private) residence as the place of occurrence of the external cause
CPT/HCPCS: 72192; 99284

== ENCOUNTER 2021-07-12 14:42 | Inpatient (IN) | payer OTHER ==
--- OUTSIDE RECORDS SUMMARY | 2021-07-12 14:48 | XMS REPORT | Continuity of Care Document ---
:1960 Author Organization [facility] t Address [address] [place] [address] Care Team Providers Name Role Phone Rosita [...] Treatment Clinician Date Other Other Disease Active [address] [facility] hyperlipid hyperlipid 2-21 Charlene kes - emia emia 00:00: Medical [address] [place] [address] Pulmonary Pulmonary Disease Active 2017-[address] [facility] HTN HTN 2-21 [facility] Ex-smoker Ex-smoker Disease Active [facility] Anxiety Anxiety Disease Active [facility] COPD COPD Disease Active [facility] (chronic (chronic 12-22 [facility] - obstructiv obstructiv 00:00: Me dical e e 00 Center pulmonary pulmonary disease) disease) Coronary Coronary Disease Active Overview: [facility] artery artery 2- S/p PCI [facility] - disease disease 00:00: stent to Medica l involving involving 00 RCA X Cent er [place] 2(12/20/17) coronary coronary artery of artery of [place] heart with heart with unstable unstable angina angina pectoris pectoris Type 2 Type [address] [facility] diabetes diabetes 12-22 [facility] - mellitus mellitus 00:00: Medica l without without 00 Center complicati complicati on on Aortic Aortic Disease Active Overview: [facility] stenosis, stenosis, 2-05 S/p TAVR Charlene kes - severe severe 00:00: (12/22/17) Medical 00 Center Amnesia Problem Active 2019-07-02 Martinez ryan (finding) 14:05:30 l Amnesia [place] (finding) Active Problem 07/02/2019 [facility] Cerebrovas Problem Active 2019-07-02 M emoria cular 14:05:30 l accident [place] (disorder) Cerebrovas cular accident (disorder) Active Problem [...] ents Source Name Type Date Date Clinician sina DA Active [facility] 07-16 Clear 00:00: [facility] cortison DA Active [facility] e 9 Clear 00:00: Burd[facility] No Known DA Active [facility] Allergie 03-11 Clear s 00:00: [facility] Codeine Propensi Active Hives [facility] ty [...] hydrocor Active Memori a tisone tisone l [place] Social History Social Habit Start Date Stop Date Quantity Comments Source Sex Assigned At [facility] Cigarettes smoked 2018-01-17 2018-01-17 [facility] britt - current (pack per 00:00:00 00:00:00 [facility] Center day) - Reported Tobacco use and 2018-01-17 2018-01-17 Never used [facility] britt - exposure 00:00:00 00:00:00 [facility] Alcohol intake 2018-01-17 2018-01-17 Current [facility] Matias es - 00:00:00 00:00:00 non-drinker of Medical nter alcohol (finding) Smoking Status Start Date Stop Date Source Social History 2018-09-13 14:54:09 2018-09-13 14:54:09 [facility] Current every day 2018-[facility]17 [facility] Medications Ordered Filled Start Stop Current Ordering Indication Dosage Frequency Signature Comments Components Source Medication Medication Date Date Medication? Clinician (SIG) Name Name Gabapentin Gabapentin Yes Anastasiia [address] [facility] 8-12 [facility] as needed [facility] - 00:[facility]: for pain [facility] 00 l [facility]pat[facility] ent Clinics Alendronate Alendronate 2020- No Anastasiia [address] [facility] Sodium Sodium 12-26 05-09 [place] 30 minutes [facility] - 00:00: [...] tab, 0 Refill(s), called to pharmacy metFORMIN 2017- Yes 1000mg Take 1,[address] [facility] (GLUCOPHAGE 3-06 mg by [facility] - ) 1000 MG 08:40: mouth 2 Medic al tablet 58 (two) Center times daily with breakfast and dinner. clonazePAM Yes .5mg QD Take 0.[address] [facility] (KLONOPIN) 3-06 mg by [facility] - 0.5 MG 08:40: mouth Medical tablet 58 daily. Center clonazePAM 2017- Yes 1mg QD Take [address] (KLONOPIN) 3-06 by mouth [facility] - 1 MG tablet 08:40: nightly. Ks dical 58 Center aspirin 81 2017-0 Yes 81mg QD Take [address] MG EC 3-06 by mouth [facility] - tablet 08:40: daily. Medical 58 Center fluticasone 2017-0 Yes 1{spray [address] [facility] (FLONASE) 3-06 } Nasal [facility] - 50 08:40: route as Medical mcg/actuati 58 needed for Ce nter on nasal Rhinitis. spray pantoprazol Yes 40mg Take [address] [facility] e 3-06 by mouth [facility] - (PROTONIX) 08:40: as needed. edical 40 MG 58 Center tablet DULoxetine Yes 30mg QD Take [address] (CYMBALTA) 3-06 by mouth [facility] - 30 MG 08:40: daily. Medical capsule 58 Center DULoxetine 2017-0 Yes 60mg QD Take [address] (CYMBALTA) 3-06 by mouth [facility] - 60 MG 08:40: nightly. Medical capsule 58 Center atorvastati 2017- Yes 20mg QD Take 20 mg [facility] [...] l Outpati ent Clinics Cymbalta Cymbalta Yes Anastasiia 1 capsule C [...] s - [facility] Aspir-81 Aspir-81 Yes Anastasiia [address] [facility] (otc) [facility] Lipitor Lipitor Yes Anastasiia [address] [facility] Millender in [facility] - eveningy [facility] Amlodipine Amlodipine Yes Anastasiia [address] [facility] Besylate Besylate Mill[place] Charlene kes - [facility] [place] Yes Anastasiia [address] [facility] Millender [...] Source BMI Calculated 2018-09-13 14:52:00 [facility] [place] Weight 2018-09-13 14:52:00 [facility] Height 2018-09-13 14:52:00 162.56 cm [facility] Systolic (mm Hg) 2018-09-13 14:52:00 Martinez riaisiah [place] Diastolic (mm Hg) 2018-09-13 14:52:00 Mem orial [place] Heart Rate 2018-09-13 14:52:00 [facility] Respitory Rate 2018-09-13 14:52:00 [place] Procedures This patient has no known procedures. Encounters Start End Encounter Admission Attending Care Care Encounter Source Date/Time Date/Time Type Type Clinicians Facility Department ID 2021-07-08 2021-07-08 Outpatient [facility] [id number] [facility] 2021-04-27 2021-04-27 [facility] [id number] 2021-04-07 2021-04-07 [facility] [id number] [facility] 2021-04-07 2021-04-07 [facility] [id number] [facility] 2021-01-27 2021-01-27 Out[facility] [id number] [facility] 2021-01-27 2021-01-27 [facility] [id number] [facility] 2021-01-07 2021-01-07 [facility] [id number] [facility] 2021-01-05 2021-01-05 [facility] [id number] [facility] 2020-10-07 2020-10-07 Out[facility] [id number] [facility] 2020-10-05 2020-10-05 [facility] [id number] [facility] 2020-09-28 2020-09-28 [facility] [id number] [facility] 2020-09-24 2020-09-24 [facility] [id number] 2020-06-24 2020-06-24 [facility] [id number] 08:40:00 08:40:00 t [facility] Medicine l Medicine Outpati ent Clinics 2020-01-15 2020-01-15 [facility] [id number] 09:07:00 09:07:00 t [facility] Medicine l Medicine Outpati ent Clinics 2019-12-26 2019-12-26 [facility] [id number] [facility] 13:15:00 13:15:00 t [facility] Medicine l Medicine Outpati ent Clinics 2019-12-09 2019-12-09 [facility] [id number] [facility] 11:27:00 11:27:00 t [facility] Medicine l Medicine Outpati ent Clinics 2019-11-01 2019-11-01 [facility] [id number] 01:41:00 01:41:00 t [facility] Medicine l Medicine Outpati ent Clinics 2019-10-15 2019-10-15 [facility] [id number] 09:02:00 09:02:00 t [facility] Medicine Outpati ent Clinics 2019-08-27 2019-08-27 [facility] [id number] 09:40:00 09:40:00 t [facility] Medicine Outpati ent Clinics 2019-05-27 2019-05-27 [facility] [id number] [facility] 10:20:00 10:20:00 t [facility] Medicine Outpati ent Clinics 2019-02-25 2019-02-25 [facility] [id number] 11:00:00 11:00:00 [facility] Medicine Outpati ent Clinics 2019-02-11 2019-02-11 [facility] [id number] [facility] 11:22:00 11:22:00 t [facility] Medicine Outpati ent Clinics 2018-12-13 2018-12-13 Ambulatory nullFlavo MNA [id number] [facility]oria 15:00:00 15:00:00 Pre-Reg r Neurology 03 isiah Villalta 2018-12-13 2018-12-13 Outpatient MHIE YOLANDA [id number] [facility] 09:00:00 09:00:00 03 isiah Villalta 2018-12-13 2018-12-13 [id number] 09:00:00 09:00:00 Pete Harris 2018-11-26 2018-11-26 [facility] [id number] [facility] 21:09:00 21:09:00 [facility] Medicine Outpati ent Clinics 2018-11-26 2018-11-26 [facility] [id number] 11:15:00 11:15:00 t [facility] Medicine Outpati ent Clinics 2018-11-17 2018-11-19 Outside nullFlavo MNA [id number] [facility]oria 17:01:00 05:59:59 Medical r Neurology 00 l Records Yadi Gastelumann 2018-11-17 2018-11-18 Outpatient M[facility]ISCHER [facility] [id number] 11:01:00 23:59:59 00 2018-09-13 2018-09-14 Outpatient morenitaFlavo MNA [id number] [facility] 14:45:00 04:59:59 r Neurology 02 l Yadi Villalta 2018-09-13 2018-09-13 Outpatient AMIRA Hull [facility] [id number] 09:45:00 23:59:59 Pete Bimal Harris 2018-09-13 2018-09-13 Outpatient MHIE MHIE [id number] [facility] 09:45:00 09:45:00 02 isiah Pawan 2018-08-22 2018-08-22 [facility] [id number] 08:57:00 08:57:00 t [facility] Medicine l Medicine Outpati ent Clinics 2018-08-21 2018-08-21 [facility] [id number] [facility] 10:30:00 10:30:00 t [facility] Medicine l Medicine Outpati ent Clinics 2018-08-03 2018-08-03 Outpatient MHIE MHIE [id number] [facility] 10:15:00 10:15:00 01 isiah Pawan 2018-05-22 2018-05-22 [facility] [id number] 11:37:00 11:37:00 t [facility] Medicine l Medicine Outpati ent Clinics 2018-05-21 2018-05-21 [facility] [id number] 10:15:00 10:15:00 t [facility] Medicine l Medicine Outpati ent Clinics 2018-02-20 2018-02-20 [facility] [id number] [facility] 19:19:00 19:19:00 t [facility] l Medicine Outpati ent Clinics 2018-02-19 2018-02-19 [facility] [id number] 10:30:00 10:30:00 [facility] Medicine Outpati ent Clinics Results Test Description Test Time Test Comments Results Result Comments Source GLUBED 2020-09-14 17:39:00 Test Item Value Reference Range Interpretation Comme nts GLUBED (test code = GLUBED) 118 MG/DL 70-110 H Performed by certified jigger machine operator at [facility] [id number] 11:44:00 Test Item Value Reference Range Interpretation Comments GLUBED (test code = 115 MG/DL 70-110 H Performe d by certified GLUBED) jigger machine operator at [facility] Novel Coronavirus 2018 [id number] 23:56:00 Test Item Value Reference Range Interpretation [...] for the identification of SARS-CoV-2 RNA usingthe [employer] M2000 Sy stem under the FDA Emergen cy UseAuthorizatio n. The testing is perf ormed by personneltraine d in the procedures for the [place] M2000 molecular diagnostic SARS-CoV-2 assa y in vitro. BASIC METABOLIC [id number] 10:34:00 Test Item Value Reference Range Interpretation [...] = 9.0 mg/dL 8.0-10.5 N CA) PROTHROMBIN [id number] 10:28:00 Test Item Value Reference Range Interpretation [...] o prevent recurre nt infarct). THROMBOPLASTIN TIME [id number] 10:28:00 Test Item Value Reference Range Interpretation Comments THROMBOPLASTIN TIME 38.5 Seconds 25.0-39.5 N Ther apeutic PARTIAL (test code = Range: 50.4 - 88.3 PTT) Seconds Effective 02/26/2019 CBC W/AUTO [id number] 10:19:00 Test Item Value Reference Range Interpretation [...] (test code NO = MDIFF) CBC W/AUTO [id number] 10:18:00 Test Item Value Reference Range Interpretation [...] code = MDIFF) - XR CHEST 2 [id number] 10:06:00 [facility]QUE[facility] : 1960 Sex: F FAX: Blake Oconnell MD [phone] [place]: St: PRE FAX: Anastasiia Choi [phone] Name: JAMEY VAZQUEZ [facility] : 1960ge/S: 60/F [address] [place] [address] Blvd Unit #: [id number] Loc: [place] [address] Phys: Blake Chandler MD Acct: [id number] Dis Date: Status: PRE HIC PHONE #:[phone] Exam Date: 09/10/2020 0948 FAX #: [phone] Reason: PREOP EXAMS: CPT CODE: [id number] XR CHEST 2 V 75195 EXAM: PA and lateral chest. EXAM DATE: [...] Chandler MD; Anastasiia Hung MD Technologist: RT Castillo(Jocelin) [facility] Date/Time/By: 09/10/2020 (1006) : By: Tigre Orig Print D/T: S: 09/10/2020 (4589) PAGE 1 Signed Report SURGICAL PATH [id number] 20:50:00 RUN DATE: 07/23/20 [facility] *LIVE* PAGE 1 RUN TIME: 2049 Specimen Inquiry RUN USER: INTERFACE PATIENT: JAMEY VAZQUEZ LOC: RohithCCU U #: [id number] AGE/SX: 59/F ROOM: [facility] RE07/21/20REG DR: Man Santana : 56 BED: 1 DIS: 07/22/20 STATUS: DIS IN TLOC: SPEC #: [id number] RECD: 07/22/20 STATUS: SOUT REQ #: [id number] DALY: 07/22/[address]: Man Santana MD ENTERED: 07/23/20 SP TYPE: SURG SPEC OTHR DR: DOES_NOT KNOW Anastasiia Hung MDORDERED: GROSS AND MICRO CODES: [id number] - ARTERY, NOS COPIES TO: DOES_NOT KNOW Man Santana MD [address] [place] [address] [email or web address] Anastasiia Hung MD [address] [address] PROCEDURES: GROSS AND MICRO (Incomplete) TISSUES: 1. ARTERY, NOS - Artery, left common femoral, plaque, seg FINAL DIAGNOSIS Artery, left common femoral, plaque, segment: Fibrous atherosclerotic plaque with calcifications. GROSS AND MICROSCOPIC GROSS DESCRIPTION: Received in formalin and labeled "plaque"is one irregular fragment of atherosclerotic material measuring 3.5 x 0.7 x 0.5 cm. [employer] Librarian sections after decal . MICROSCOPIC EXAMINATION: The fibrous material contains cholesterol clefts and focal calcifications. POST-OP DIAGNOSIS Peripheral vascular disease CONTINUED ON NEXT PAGE RUN DATE: 07/23/20 [facility] *LIVE* PAGE 2 RUN TIME: 2049 Specimen Inquiry RUN USER: INTERFACE SPEC #: [id number] PATIENT: JAMEY VAZQUEZ #[id number] (Continued) PRE-OP DIAGNOSIS Peripheral vascular disease Signed SIGNATURE ON FILE David Garcia MD 07/23/202049 END OF REPORT BASIC METABOLIC [id number] 15:43:00 Test Item Value Reference Range Interpretation [...] code = 9.2 mg/dL 8.0-10.5 N CA) [id number] 12:58:00 Test Item Value Reference Range Interpretation Comments GLUBED (test code = 111 MG/DL 70-110 H Performe d by certified GLUBED) jigger machine operator at [facility] BASIC METABOLIC [id number] 04:08:00 Test Item Value Reference Range Interpretation [...] 8.9 mg/dL 8.0-10.5 N CA) CBC W/AUTO [id number] 03:55:00 Test Item Value Reference Range Interpretation [...] DIFF REQUIRED (test code NO = MDIFF) [id number] 21:15:00 Test Item Value Reference Range Interpretation Comments GLUBED (test code = 155 MG/DL 70-110 H Performe d by certified GLUBED) jigger machine operator at [facility] [id number] 20:26:00 Test Item Value Reference Range Interpretation Comments GLUBED (test code = 138 MG/DL 70-110 H Performe d by certified GLUBED) jigger machine operator at [facility] - XR FLUOROSCOPY 0-60 [id number] 15:00:00 FAX: Man Pettit [phone] [place]: St: ADM FAX: Blake Oconnell MD [phone] FAX: Anastasiia Valadez [phone] Name: [facility] 1960 Age/S: 59/F [address] [place], [place] [address]vd Unit #: [id number] Loc: [place] [address] Phys: Blake Chandler MD Acct: [id number] Dis Date: Status: ADM IN PHONE #: [phone] Exam Date: 07/21/2020 1300 FAX #: [phone] Reason: PVD EXAMS: CPT CODE: [id number] XR FLUOROSCOPY 0-60 MIN 10826 Patient Name: JAMEY VAZQUEZ : 1960; Age: 59 years y/o Female MR: [id number] Study: - XR FLUOROSCOPY 0-60 MIN 07/21/2020 10:45 AM Ordering Physician: Blake Chandler MD Clinical Indication: ; PVD Comparison:None FINDINGS: Multiple spot fluoroscopic images from carotid endarterectomy are submitted for evaluation. Fluoroscopy Time: 11 seconds Reference Air Kerma: 4.2 mGy IMPRESSION: Please refer to the official procedure report for complete assessment. SL: [id number] at 1500 Reported and signed by: Gal Sharma M.D. CC: Man Santana MD; Blake Chandler MD; Anastasiia Hung MD Technologist: Tracy Vega RT(R) Trnscrd Date/Time/By: 07/21/2020 (1500) : By: [email or web address] Orig Print D/T: S: 07/21/2020 (0229) PAGE 1 Signed [id number] 13:47:00 Test Item Value Reference Range Interpretation Comments GLUBED (test code = 125 MG/DL 70-110 H Performe d by certified GLUBED) jigger machine operator at [facility] [id number] 12:25:00 Test Item Value Reference Range Interpretation Comments ACT-ISTAT (test code 191 SEC 74-137 H Perform ed by certified = ACTI) jigger machine operator at [facility] [id number] 11:59:00 Test Item Value Reference Range Interpretation Comments ACT-ISTAT (test code 230 SEC 74-137 H Perform ed by certified = ACTI) jigger machine operator at [facility] [id number] 07:56:00 Test Item Value Reference Range Interpretation Comments GLUBED (test code = 122 MG/DL 70-110 H Performe d by certified GLUBED) jigger machine operator at [facility] CBC W/AUTO [id number] 14:42:00 Test Item Value Reference Range Interpretation [...] REQUIRED (test code NO = MDIFF) RBC [id number] 14:42:00 Test Item Value Reference Range Interpretation Comments POLYCHROMASIA (test code = POLC) 1+ POIKILOCYTOSIS (test code = POIK) SLIGHT ANISOCYTOSIS (test code = ANISO) 1+ MICROCYTOSIS (test code = MICR) 1+ OVALOCYTES (test code = OVAL) FEW COVID 19 Asymptomatic IH [id number] 13:59:00 Test Item Value Reference Range Interpretation [...] waivedcomplexit y tests. - XR CHEST 2 [id number] 13:50:00 FAX: Blake Oconnell MD [phone] [place]: St: PRE FAX: Anastasiia Valadez [phone] Name: JAMEY VAZQUEZ [facility] : 1960 Age/S: 59/F [address] [place] [address] Blvd Unit #: [id number] Loc: [place] [address] Phys: Blake Chandler MD Acct: [id number] Dis Date: Status: PRE HIC PHONE #: [phone] Exam Date: 07/16/2020 1317 FAX #: [phone] Reason: PREOP EXAMS: CPT CODE: [id number] XR CHEST 2 V 70810 CLINICAL HISTORY: PREOP COMPARISON: NONE PA and [...] Chandler MD; Anastasiia Hung MD Technologist: RT Fuad(Jocelin)(M) [facility] Date/Time/By: 07/16/2020 (9716) : By: Mikala Orig Print D/T: S: 07/16/2020 (4345) PAGE 1 Signed ReportBASIC METABOLIC [id number] 12:51:00 Test Item Value Reference Range Interpretation [...] 9.3 mg/dL 8.0-10.5 N CA) CBC W/AUTO [id number] 12:44:00 Test Item Value Reference Range Interpretation [...] REQUIRED (test code NO = MDIFF) RBC [id number] 12:44:00 Test Item Value Reference Range Interpretation Comments ANISOCYTOSIS (test code = ANISO) CBC W/AUTO [id number] 12:44:00 Test Item Value Reference Range Interpretation [...] REQUIRED (test code NO = MDIFF) RBC [id number] 12:44:00 Test Item Value Reference Range Interpretation Comments ANISOCYTOSIS (test code = ANISO) PROTHROMBIN [id number] 12:26:00 Test Item Value Reference Range Interpretation [...] o prevent recurre nt infarct). THROMBOPLASTIN TIME [id number] 12:26:00 Test Item Value Reference Range Interpretation Comments THROMBOPLASTIN TIME 41.4 Seconds 25.0-39.5 H Ther apeutic PARTIAL (test code = Range: 50.4 - 88.3 PTT) Seconds Effective 02/26/2019 BASIC METABOLIC [id number] 10:35:00 Test Item Value Reference Range Interpretation [...] 9.0 mg/dL 8.0-10.5 N CA) CBC W/AUTO [id number] 10:15:00 Test Item Value Reference Range Interpretation [...] REQUIRED (test code NO = MDIFF) URINALYSIS [id number] 10:05:00 Test Item Value Reference Range Interpretation [...] TRACE /LPF NONE SEEN - US RETROPERITONEAL [id number] 09:58:00 Name: JAMEY VAZQUEZ [facility] : 1960 Age/S: 59 / F [address] [place] [address] Blvd Unit #: [id number] Loc: [id number] Phys: Olya Donohue MD Acct: [id number] Dis Date: Status: REG CLI PHONE #: [phone] Exam Date: 06/29/2020 105 FAX #: [phone] Reason: ACUTE KI DNEY FAILURE EXAMS: CPTCODE: [id number] US RETROPERITONEAL COM 62630 PROCEDURE: RENAL ULTRASOUND INDICATION: Acute kidney failure [...] kidney in 6 months with ultrasound. SL: [id number] at 0958 Reported and signed by: Fermin Green M.D. PAGE 1 Signed Report (CONTINUED) Name: JAMEY VAZQUEZ [facility] : 1960 Age/S: 59 / F [address] [place] [address] Blvd Unit #: [id number] Loc: [place] [address] Phys: Olya Donohue MD Acct: [id number] Dis Date: Status: REG CLI PHONE #: [phone] Exam Date: 06/29/2020 105 FAX #: [phone] Reason: ACUTE KIDNEY FAILURE EXAMS: CPT CODE: [id number] US RETROPERITONEAL COM [id number] <Continued> CC: Anastasiia Hung MD; Olya Donohue MD Technologist: Maxine Amador RDMS(Cherelle)(BR) Trnnmb Date/Time: 06/29/2020 (0958) aYsh Orig Print D/T: S: 06/29/2020 (1052) Probe: PAGE 2 Signed ReportCREATININE W ESTIMATED [id number] 06:54:00 Test Item Value Reference Range Interpretation Comments BEDSIDE CREATININE MG/DL 0.6-1.3 H Previousl y reported (test code = CREATBED) resul t: 48.0 MG/DLEdited by: KENNEDY on 05/01/20: 0653: BEDSIDE CREAT previously repo rted as: 48.0 H MG/D L GLOMERULAR FILTRATION 35 ML/MIN Previo usly reported RATE POC (test code = result : 1 ML/MINEdited GFRBED) by: KENNEDY o n 05/01/20: 0653: GFRBED previously repo rted as: 1 ML/MIN ENTER BEDSIDE CREATININE RESULT: 48Enter Name of User Performing Test: KDB CREATININE W ESTIMATED [id number] 06:54:00 Test Item Value Reference Range Interpretation Comments BEDSIDE CREATININE 1.6 MG/DL 0.6-1.3 H Previousl y reported (test code = CREATBED) resul t: 48.0 MG/DLEdited by: KENNEDY on 05/01/20: 0653: BEDSIDE CREAT previously repo rted as: 48.0 H MG/D L GLOMERULAR FILTRATION 35 ML/MIN Previo usly reported RATE POC (test code = result : 1 ML/MINEdited GFRBED) by: PRICEP o n 05/01/20: 0653: GFRBED previously repo rted as: 1 ML/MIN ENTER BEDSIDE CREATININE RESULT: 48Enter Name of User Performing Test: KDB CREATININE W ESTIMATED [id number] 06:51:00 Test Item Value Reference Range Interpretation Comments BEDSIDE CREATININE (test code = 48.0 MG/DL 0.6-1.3 H CREATBED) GLOMERULAR FILTRATION RATE POC 1 ML/MIN (test code = GFRBED) ENTER BEDSIDE CREATININE RESULT: 48Enter Name of User Performing Test: KDB- CTA ABD AORTA IF LWEX [id number] 13:49:00 Name: JAMEY VAZQUEZ [facility] [place] : 1960 Age/S: 59 / F [address] [place] [address] Blvd Unit #: [id number] Loc: [place] [id number] Phys: Blake Chandler MD Acct: [id number] Dis Date: Status: REG CLI PHONE #: [phone] Exam Date: 04/30/2020 0857 FAX #: [phone] Reason: ATHSCL BURNS PAIUTE ARTERIES OF EXTRM. EXAMS: CPTCODE: [id number] [place] [address] Clinical Indication: Atherosclerosis of koi arteries of extremities . Comparison: None TECHNIQUE: [...] 1 Signed Report (CONTINUED) Name: JAMEY VAZQUEZ [place] : 1960 Age/S: 59 / F [address] [place] [address] Unit #: [id number] Loc:[place] [address] Phys: Blake Chandler MD Acct: [id number] Dis Date: Status: REG CLI PHONE #: [phone] Exam Date: 04/30/2020 0857 FAX #: [phone] Reason: ATHSCL BURNS PAIUTE ARTERIES OF EXTRM. EXAMS: CPT CODE: [id number] [place] [address] <Continued> Three- vessel runoff to the left [...] months. 5. Prior aortic valve replacement. SL: [id number] at 1349 Reported and signed by: Denis Sorensen M.D. PAGE 2 Signed Report (CONTINUED) Name: JAMEY VAZQUEZTOMASZ [place] : 1960 Age/S: 59 / F [address] [place] [address] Unit #: [id number] Loc: [place] [address] Phys: Blake Chandler KMD Acct: [id number] Dis Date: Status: REG CLI PHONE #: [phone] Exam Date: 04/30/2020 0857 FAX #: [phone] Reason: ATHSCL BURNS PAIUTE ARTERIES OF EXTRM. EXAMS: CPT CODE: [id number] [place] [address] <Continued> CC: Blake Chandler MD; Anastasiia Hung MD Technologist:Lisa Mathias, RT(R)(CT) CTDI: DLP: Trnscb Date/Time: 04/30/2020 (4574) [email or web address] Orig Print D/T: S: 04/30/2020 (6286) PAGE 3 Signed ReportCREATININE W ESTIMATED [id number] 11:47:00 Test Item Value Reference Range Interpretation Comments BEDSIDE CREATININE (test code = 1.6 MG/DL 0.6-1.3 H CREATBED) GLOMERULAR FILTRATION RATE POC 35 ML/MIN (test code = GFRBED) ENTER BEDSIDE CREATININE RESULT: 1.61Serial Number: [id number] Name of User Performing Test: A.KRNAVEKB-TYPE NATRIURETIC FACTOR (BNP)2018-01-03 13:07:00 Test Item Value Reference Range Interpretation Comments B-TYPE NATRIURETIC PEPTIDE 1188 pg/mL 0-100 H (BEAKER) (test code = 700) [id number] 13:02:00 Test Item Value Reference Range Interpretation Comments MAGNESIUM (BEAKER) (test code = 1.2 mg/dL 1.6-2.6 L 627) BASIC METABOLIC [id number] 13:02:00 Test Item Value Reference Range Interpretation [...] PATIEN TS. CBC W/PLT COUNT & AUTO [id number] 07:29:00 Test Item Value Reference Range Interpretation [...] PERCENT (BEAKER) (test code = 2801) CALCIUM, [id number] 07:16:00 Test Item Value Reference Range Interpretation Comments CALCIUM IONIZED (BEAKER) (test 0.79 mmol/L 1.12-1.27 LL code = 698) PH, BLOOD (BEAKER) (test code = 7.49 1810) [id number] 07:09:00 Test Item Value Reference Range Interpretation Comments MAGNESIUM (BEAKER) (test code = 1.6 mg/dL 1.6-2.6 627) BASIC METABOLIC [id number] 07:09:00 Test Item Value Reference Range Interpretation [...] PATIEN TS. CBC W/PLT COUNT & AUTO [id number] 12:19:00 Test Item Value Reference Range Interpretation [...] = 2801) RAD, CHEST, 1 VIEW, NON [id number] 08:04:00Reason for exam:->chfShould this be performed at the bedside?->YesFINAL REPORT Chest one view compared to December 25 Discussion: There is aortic valve replacement. Interstitial congestion is worse. No effusion or pneumothorax. Right midlung calcified granuloma is present. Signed: Leonel Maldonadoeport Verified Date/Time: 12/27/2017 08:04:55 Reading Location: [facility] Radiology Reading Room [id number] 07:17:00 Test Item Value Reference Range Interpretation Comments MAGNESIUM (BEAKER) (test code = 1.6 mg/dL 1.6-2.6 627) BASIC METABOLIC [id number] 07:17:00 Test Item Value Reference Range Interpretation [...] GFR I S NOT APPLICABLE FOR DIALYSIS SUNITHA TS. B-TYPE NATRIURETIC FACTOR (BNP)2017-12-27 07:10:00 Test Item Value Reference Range Interpretation Comments B-TYPE NATRIURETIC PEPTIDE 1147 pg/mL 0-100 H (BEAKER) (test code = 700) CALCIUM, [id number] 06:37:00 Test Item Value Reference Range Interpretation Comments CALCIUM IONIZED (BEAKER) (test 1.05 mmol/L 1.12-1.27 L code = 698) PH, BLOOD (BEAKER) (test code = 7.43 1810) CALCIUM, [id number] 07:28:00 Test Item Value Reference Range Interpretation Comments CALCIUM IONIZED (BEAKER) (test 1.07 mmol/L 1.12-1.27 L code = 698) PH, BLOOD (BEAKER) (test code = 7.30 1810) CBC W/PLT COUNT & AUTO [id number] 07:19:00 Test Item Value Reference Range Interpretation [...] code = 2801) LACTIC ACID, VENOUS, WHOLE [id number] 06:45:00 Test Item Value Reference Range Interpretation Comments LACTATE BLOOD VENOUS (2) (BEAKER) 1.2 mmol/L 0.5-2.2 (test code = 2872) Effective 03/16/2016: Units/Reference Range ChangeNew: 0.5-2.2 mmol/L Previous: 5-20 mg/[id number] 06:31:00 Test Item Value Reference Range Interpretation Comments MAGNESIUM (BEAKER) (test code = 1.5 mg/dL 1.6-2.6 L 627) BASIC METABOLIC [id number] 06:31:00 Test Item Value Reference Range Interpretation [...] PATIEN TS. RAD, CHEST, 1 VIEW, NON [id number] 08:22:00Reason for exam:->s/p TAVR with COPDShould this be performed at the bedside?->YesFINAL REPORT Chest one view compared to December 24 Discussion: Aortic valve r eplacement, azygos region calcified nodes, pulmonary congestion, and lateral right upper lobe calcified granuloma are unchanged. I could not exclude small left effusion. No pneumothorax. IMPRESSIONS: No change Signed: Leonel Maldonadoepjayant Verified Date/Time: 12/25/2017 08:22:52 Reading Location: [facility] Radiology Reading Room [id number] 05:09:00 Test Item Value Reference Range Interpretation Comments MAGNESIUM (BEAKER) (test code = 1.7 mg/dL 1.6-2.6 627) BASIC METABOLIC [id number] 05:09:00 Test Item Value Reference Range Interpretation [...] NOT APPLICABLE FOR DIALYSIS PATIEN TS. CALCIUM, [id number] 05:01:00 Test Item Value Reference Range Interpretation Comments CALCIUM IONIZED (BEAKER) (test 0.93 mmol/L 1.12-1.27 L code = 698) PH, BLOOD (BEAKER) (test code = 7.49 1810) CBC W/PLT COUNT & AUTO [id number] 04:57:00 Test Item Value Reference Range Interpretation [...] 0-1 PERCENT (BEAKER) (test code = 2801) [id number] 17:53:00 Test Item Value Reference Range Interpretation Comments POTASSIUM (BEAKER) (test code = 3.4 meq/L 3.5-5.1 L 379) [id number] 17:53:00 Test Item Value Reference Range Interpretation Comments MAGNESIUM (BEAKER) (test code = 1.8 mg/dL 1.6-2.6 627) CBC W/PLT COUNT & AUTO [id number] 07:00:00 Test Item Value Reference Range Interpretation [...] 0-1 PERCENT (BEAKER) (test code = 2801) [id number] 06:09:00 Test Item Value Reference Range Interpretation Comments MAGNESIUM (BEAKER) (test code = 1.1 mg/dL 1.6-2.6 L 627) BASIC METABOLIC [id number] 06:09:00 Test Item Value Reference Range Interpretation [...] DIALYSIS PATIEN TS. LACTIC ACID, ARTERIAL, WHOLE [id number] 05:59:00 Test Item Value Reference Range Interpretation Comments LACTATE BLOOD ARTERIAL (2) 0.6 mmol/L 0.5-2.2 (BEAKER) (test code = 2874) Effective 03/16/2016: Units/Reference Range ChangeNew: 0.5-2.2 mmol/L Previous: 5-20 mg/dLBLOOD GAS, [id number] 05:19:00 Test Item Value Reference Range Interpretation [...] (test code = 1819) 36.0 % CALCIUM, [id number] 05:19:00 Test Item Value Reference Range Interpretation Comments CALCIUM IONIZED (BEAKER) (test 1.08 mmol/L 1.12-1.27 L code = 698) PH, BLOOD (BEAKER) (test code = 7.42 1810) RAD, CHEST, 1 VIEW, NON [id number] 04:18:00Reason for exam:->COPD, intubated s/p TAVRShould this [...] MDReport Verified Date/Time: 12/24/2017 04:18:53 Reading Location: [address] Reading Room BLOOD GAS, [id number] 15:48:00 Test Item Value Reference Range Interpretation [...] code = 1819) 40.0 % SODIUM NA-STAT [id number] 15:48:00 Test Item Value Reference Range Interpretation Comments SODIUM (BEAKER) (test code = 381) 133 meq/L 135-148 L GLUCOSE-STAT [id number] 15:48:00 Test Item Value Reference Range Interpretation Comments GLUCOSE RANDOM (BEAKER) (test code 143 mg/dL 70-110 H = 652) HGB/HCT (H&H) - STAT [id number] 15:48:00 Test Item Value Reference Range Interpretation Comments HEMOGLOBIN (BEAKER) (test code = 10.9 g/dL 12.0-15.0 L 410) HEMATOCRIT (BEAKER) (test code = 32.0 % 36.0-45.0 L 411) POTASSIUM-STAT [id number] 15:47:00 Test Item Value Reference Range Interpretation Comments POTASSIUM (BEAKER) (test code = 3.7 meq/L 3.6-5.5 379) CALCIUM, [id number] 14:08:00 Test Item Value Reference Range Interpretation Comments CALCIUM IONIZED (BEAKER) (test 0.97 mmol/L 1.12-1.27 L code = 698) PH, BLOOD (BEAKER) (test code = 7.46 1810) BLOOD GAS, [id number] 14:07:00 Test Item Value Reference Range Interpretation [...] code = 1819) 50.0 % SODIUM NA-STAT [id number] 14:07:00 Test Item Value Reference Range Interpretation Comments SODIUM (BEAKER) (test code = 381) 132 meq/L 135-148 L POTASSIUM-STAT [id number] 14:07:00 Test Item Value Reference Range Interpretation Comments POTASSIUM (BEAKER) (test code = 3.3 meq/L 3.6-5.5 L 379) GLUCOSE-STAT [id number] 14:07:00 Test Item Value Reference Range Interpretation Comments GLUCOSE RANDOM (BEAKER) (test code 127 mg/dL 70-110 H = 652) HGB/HCT (H&H) - STAT [id number] 14:07:00 Test Item Value Reference Range Interpretation Comments HEMOGLOBIN (BEAKER) (test code = 11.1 g/dL 12.0-15.0 L 410) HEMATOCRIT (BEAKER) (test code = 33.0 % 36.0-45.0 L 411) POCT-GLUCOSE [id number] 12:50:00 Test Item Value Reference Range Interpretation Comments POC-GLUCOSE METER 144 mg/dL 70-110 H TESTED AT [facility] 6720 (BEAKER) (test code = [place] 1538) [address] [id number] 07:14:00 Test Item Value Reference Range Interpretation Comments MAGNESIUM (BEAKER) 1.4 mg/dL 1.6-2.6 L Specimen slightly (test code = 627) hemolyzed BASIC METABOLIC [id number] 07:14:00 Test Item Value Reference Range Interpretation [...] PATIEN TS. CBC W/PLT COUNT & AUTO [id number] 06:43:00 Test Item Value Reference Range Interpretation [...] code = 2801) LACTIC ACID, ARTERIAL, WHOLE [id number] 06:38:00 Test Item Value Reference Range Interpretation Comments LACTATE BLOOD ARTERIAL (2) 0.8 mmol/L 0.5-2.2 (BEAKER) (test code = 2874) Effective 03/16/2016: Units/Reference Range ChangeNew: 0.5-2.2 mmol/L Previous: 5-20 mg/dLCALCIUM, [id number] 06:12:00 Test Item Value Reference Range Interpretation Comments CALCIUM IONIZED (BEAKER) (test 1.04 mmol/L 1.12-1.27 L code = 698) PH, BLOOD (BEAKER) (test code = 7.45 1810) BLOOD GAS, [id number] 06:07:00 Test Item Value Reference Range Interpretation [...] 40.0 % RAD, CHEST, 1 VIEW, NON [id number] 02:56:00Reason for exam:->COPD, intubated s/p TAVRShould this [...] MDReport Verified Date/Time: 12/23/2017 02:56:34 Reading Location: [address] Reading Room BLOOD GAS, [id number] 00:29:00 Test Item Value Reference Range Interpretation [...] (BEAKER) (test code = 1819) 40.0 % [id number] 20:23:00 Test Item Value Reference Range Interpretation Comments MAGNESIUM (BEAKER) (test code = 1.3 mg/dL 1.6-2.6 L 627) [id number] 20:23:00 Test Item Value Reference Range Interpretation Comments PHOSPHORUS (BEAKER) (test code = 4.2 mg/dL 2.3-4.7 604) BASIC METABOLIC [id number] 20:23:00 Test Item Value Reference Range Interpretation [...] DIALYSIS PATIEN TS. LACTIC ACID, ARTERIAL, WHOLE [id number] 20:21:00 Test Item Value Reference Range Interpretation Comments LACTATE BLOOD ARTERIAL (2) 1.4 mmol/L 0.5-2.2 (BEAKER) (test code = 2874) Effective 03/16/2016: Units/Reference Range ChangeNew: 0.5-2.2 mmol/L Previous: 5-20 mg/[id number] 20:21:00 Test Item Value Reference Range Interpretation Comments FIBRINOGEN LEVEL (BEAKER) (test 304 mg/dl 225-434 code = 658) [id number] 20:21:00 Test Item Value Reference Range Interpretation Comments PARTIAL THROMBOPLASTIN TIME 30.2 seconds 22.5-36.0 (BEAKER) (test code = 760) PROTHROMBIN [id number] 20:20:00 Test Item Value Reference Range Interpretation [...] = 2801) RAD, CHEST, 1 VIEW, NON [id number] 20:19:00Reason for exam:->COPD, intubated s/p TAVRShould this [...] MDReport Verified Date/Time: 12/22/2017 20:19:46 Reading Location: [address] Reading Room BLOOD GAS, [id number] 19:59:00 Test Item Value Reference Range Interpretation [...] (test code = 1819) 80.0 % CALCIUM, [id number] 19:59:00 Test Item Value Reference Range Interpretation Comments CALCIUM IONIZED (BEAKER) (test 1.09 mmol/L 1.12-1.27 L code = 698) PH, BLOOD (BEAKER) (test code = 7.46 1810) BLOOD GAS, [id number] 17:39:00 Test Item Value Reference Range Interpretation [...] code = 1819) 100.0 % SODIUM NA-STAT [id number] 17:39:00 Test Item Value Reference Range Interpretation Comments SODIUM (BEAKER) (test code = 381) 130 meq/L 135-148 L POTASSIUM-STAT [id number] 17:39:00 Test Item Value Reference Range Interpretation Comments POTASSIUM (BEAKER) (test code = 3.3 meq/L 3.6-5.5 L 379) GLUCOSE-STAT [id number] 17:39:00 Test Item Value Reference Range Interpretation Comments GLUCOSE RANDOM (BEAKER) (test code 178 mg/dL 70-110 H = 652) HGB/HCT (H&H) - STAT [id number] 17:39:00 Test Item Value Reference Range Interpretation Comments HEMOGLOBIN (BEAKER) (test code = 11.5 g/dL 12.0-15.0 L 410) HEMATOCRIT (BEAKER) (test code = 34.0 % 36.0-45.0 L 411) CALCIUM, [id number] 17:39:00 Test Item Value Reference Range Interpretation Comments CALCIUM IONIZED (BEAKER) (test 0.93 mmol/L 1.12-1.27 L code = 698) PH, BLOOD (BEAKER) (test code = 7.48 1810) BLOOD GAS, [id number] 16:56:00 Test Item Value Reference Range Interpretation [...] 37.0 C code = 1818) SODIUM NA-STAT [id number] 16:56:00 Test Item Value Reference Range Interpretation Comments SODIUM (BEAKER) (test code = 381) 131 meq/L 135-148 L POTASSIUM-STAT [id number] 16:56:00 Test Item Value Reference Range Interpretation Comments POTASSIUM (BEAKER) (test code = 3.1 meq/L 3.6-5.5 L 379) GLUCOSE-STAT [id number] 16:56:00 Test Item Value Reference Range Interpretation Comments GLUCOSE RANDOM (BEAKER) (test code 162 mg/dL 70-110 H = 652) HGB/HCT (H&H) - STAT [id number] 16:56:00 Test Item Value Reference Range Interpretation Comments HEMOGLOBIN (BEAKER) (test code = 10.7 g/dL 12.0-15.0 L 410) HEMATOCRIT (BEAKER) (test code = 31.0 % 36.0-45.0 L 411) [id number] 15:41:00 Test Item Value Reference Range Interpretation Comments ACTIVATED CLOTTING TIME 285 sec TEST ED AT [facility] 6720 (BEAKER) (test code = [place] 441) [address] CALCIUM, [id number] 15:05:00 Test Item Value Reference Range Interpretation Comments CALCIUM IONIZED (BEAKER) (test 1.02 mmol/L 1.12-1.27 L code = 698) PH, BLOOD (BEAKER) (test code = 7.46 1810) BLOOD GAS, [id number] 15:05:00 Test Item Value Reference Range Interpretation [...] code = 1819) 100.0 % SODIUM NA-STAT [id number] 15:05:00 Test Item Value Reference Range Interpretation Comments SODIUM (BEAKER) (test code = 381) 132 meq/L 135-148 L POTASSIUM-STAT [id number] 15:05:00 Test Item Value Reference Range Interpretation Comments POTASSIUM (BEAKER) (test code = 3.2 meq/L 3.6-5.5 L 379) GLUCOSE-STAT [id number] 15:05:00 Test Item Value Reference Range Interpretation Comments GLUCOSE RANDOM (BEAKER) (test code 124 mg/dL 70-110 H = 652) HGB/HCT (H&H) - STAT [id number] 15:05:00 Test Item Value Reference Range Interpretation Comments HEMOGLOBIN (BEAKER) (test code = 10.5 g/dL 12.0-15.0 L 410) HEMATOCRIT (BEAKER) (test code = 31.0 % 36.0-45.0 L 411) POCT-GLUCOSE [id number] 12:26:00 Test Item Value Reference Range Interpretation Comments POC-GLUCOSE METER 100 mg/dL 70-110 TESTED AT [facility] 67 [facility] (test code = ELEONORA [place] [facility] 1538) [address] POCT-GLUCOSE [id number] 09:20:00 Test Item Value Reference Range Interpretation Comments POC-GLUCOSE METER 103 mg/dL 70-110 TESTED AT [place] [address] ([facility]) (test code = ELEONORA Monreal [facility] 1538) [address] RAD, CHEST, 1 VIEW, NON [id number] 07:47:00Reason for exam:->chfShould this be performed at the bedside?->YesFINAL REPORT Chest one view AP 12/22/2017 7:47 AM CLINICAL INDICATION: chf COMPARISON: 12/18/2017 IMPRESSION: Cardiomediastinal contours are stable. There is central pulmonary vasculature congestion with mild interstitial edema. There is evidence for prior granulomatous disease. Bibasilar opacities suggest atelectasis. Pneumonia should be excluded clinically. Signed: Angy Santiagoeport Verified Date/Time: 12/22/2017 07:47:39 Reading Location: [facility] Radiology ReadingRoom BASIC METABOLIC [id number] 05:54:00 Test Item Value Reference Range Interpretation [...] L code = 756) MEAN PLATELET VOLUME (AKER) 9.9 fL 9.4-12.3 (test code = 754) NUCLEATED RED BLOOD CELLS 0 /100 WBC 0-0 (BEAKER) (test code = 413) B-TYPE NATRIURETIC FACTOR (BNP)2017-12-22 05:37:00 Test Item Value Reference Range Interpretation Comments B-TYPE NATRIURETIC PEPTIDE 1854 pg/mL 0-100 H ([facility]) (test code = 700) POCT-GLUCOSE [id number] 22:05:00 Test Item Value Reference Range Interpretation Comments POC-GLUCOSE METER 172 mg/dL 70-110 H TESTED AT [place] [address] ([facility]) (test code = [facility] 1538) [address] IMMUNOGLOBULIN A (IGA)2017-12-21 20:02:00 Test Item Value Reference Range Interpretation Comments IMMUNOGLOBULIN A (IGA) (AKER) 500 mg/dL 63-484 H (test code = 639) HEPATITIS PANEL, [id number] 13:25:00 Test Item Value Reference Range Interpretation Comments HEPATITIS A IGM ANTIBODY (BEAKER) Nonreactive Nonreactive (test code = 498) HEPATITIS B CORE IGM ANTIBODY Nonreactive Nonreactive (BEAKER) (test code = 645) HEPATITIS C ANTIBODY (BEAKER) Nonreactive Nonreactive (test code = 367) HEPATITIS B SURFACE ANTIGEN (2) Nonreactive Nonreactive (AKER) (test code = 2585) URINE [id number] 11:19:00 Test Item Value Reference Range Interpretation Comments CULTURE (BEAKER) (test <10,000 col/mL skin code = 1095) annika POCT-GLUCOSE [id number] 09:10:00 Test Item Value Reference Range Interpretation Comments POC-GLUCOSE METER 133 mg/dL 70-110 H TESTED AT [facility] 67 ([facility]) (test code = [facility] 1538) [address] BASIC METABOLIC [id number] 06:35:00 Test Item Value Reference Range Interpretation [...] NOT APPLICABLE FOR DIALYSIS PATIEN TS. POCT-GLUCOSE [id number] 21:59:00 Test Item Value Reference Range Interpretation Comments POC-GLUCOSE METER 121 mg/dL 70-110 H TESTED AT [facility] 6720 (BEAKER) (test code = [place] 1538) [address] HEMOGLOBIN AND [id number] 21:51:00 Test Item Value Reference Range Interpretation Comments HEMOGLOBIN (BEAKER) (test code = 8.2 GM/DL 11.2-15.7 L 410) HEMATOCRIT (BEAKER) (test code = 27.8 % 34.1-44.9 L 411) PROTHROMBIN [id number] 19:12:00 Test Item Value Reference Range Interpretation [...] (test code = Normal 762) CT, CTA [id number] 11:24:00Addendum BeginsREPORT STATUS:A Addendum: The non vascular findings were reviewed by the economics consultant radiologist. I agree with the original [...] (29 mm valve). For reference purpose, per [employer] brochure, recommendation are as follows: CT perimeter between [...] 40.6 degrees. The angle of delivery is [place] 14 CAU 11. The minimal and perpendicular [...] 6.0 mm, respectively with minimal tortuosity and qfal-tn-oyangleq calcific atherosclerosis present. NONVASCULAR: The visualised thyroid [...] An addendum will be dictated by the Director Of Student Aid Radiologist regarding the nonvascular findings. Signed: Jozef Garcia MDReport Verified Date/Time: 12/19/2017 17:44:29 Reading Location: [place] [address], CTA, [id number] 11:24:00Addendum BeginsREPORT STATUS:A Addendum: The non vascular findings were reviewed by the economics consultant radiologist. I agree with the original [...] (29 mm valve). For reference purpose, per JovanniValveEzra don, recommendation are as follows: CT perimeter [...] 40.6 degrees. The angle of delivery is [place] 14 CAU 11. The minimal and perpendicular [...] 6.0 mm, respectively with minimal tortuosity and pncc-zl-xvolilrn calcific atherosclerosis present. NONVASCULAR: The visualised thyroid [...] An addendum will be dictated by the Director Of Student Aid Radiologist regarding the nonvascular findings. Signed: Jozef Garciaort Verified Date/Time: 12/19/2017 17:44:29 Reading Location: [place] [address] Cardiology MRI [id number] 10:49:00 Test Item Value Reference Range Interpretation Comments ACTIVATED CLOTTING TIME 301 sec TEST ED AT [place] [address] ([facility]) (test code = [facility] 441) [address] POCT-GLUCOSE [id number] 08:38:00 Test Item Value Reference Range Interpretation Comments POC-GLUCOSE METER 102 mg/dL 70-110 TESTED AT [place] [address] ([facility]) (test code = [facility] 1538) [address] BASIC METABOLIC [id number] 07:34:00 Test Item Value Reference Range Interpretation Comments SODIUM (BEAKER) 133 meq/L 136-145 L (test code = 381) POTASSIUM (BEAKER) 4.3 meq/L 3.5-5.1 (test code = 379) CHLORIDE (BEAKER) 96 meq/L 98-107 L (test code = 382) CO2 (BEAKER) (test 28 meq/L 22-29 code = 355) BLOOD UREA NITROGEN 8 mg/dL 7-21 ([facility]) (test code = 354) CREATININE ([facility]) 0.67 mg/dL 0.57-1.25 (test code = 358) GLUCOSE RANDOM 93 mg/dL 70-105 ([facility]) (test code = 652) CALCIUM ([facility]) 8.3 mg/dL 8.4-10.2 L (test code = 697) EGFR ([facility]) (test 90 mL/min/1.73 ESTIMA TERESA GFR IS code = 1092) sq m NOT ACCURATE CREATININE CLEARANCE IN PREDICTING GLOMERULAR FILTRATION RATE . ESTIMATED GFR I S NOT APPLICABLE FOR DIALYSIS PATICHRISTIANNE LYLE. [id number] 07:09:00 Test Item Value Reference Range Interpretation Comments PARTIAL THROMBOPLASTIN TIME 33.1 seconds 22.5-36.0 ([facility]) (test code = 760) POCT-GLUCOSE [id number] 21:31:00 Test Item Value Reference Range Interpretation Comments POC-GLUCOSE METER 110 mg/dL 70-110 TESTED AT [place] [address] ([facility]) (test code = [facility] 1538) [address] POCT-GLUCOSE [id number] 18:28:00 Test Item Value Reference Range Interpretation Comments POC-GLUCOSE METER 151 mg/dL 70-110 H TESTED AT [place] [address] ([facility]) (test code = [facility] 1538) [address] POCT-GLUCOSE [id number] 11:54:00 Test Item Value Reference Range Interpretation Comments POC-GLUCOSE METER 101 mg/dL 70-110 TESTED AT [place] [address] ([facility]) (test code = [facility] 1538) [address] CBC W/PLT COUNT & AUTO [id number] 10:35:00 Test Item Value Reference Range Interpretation Comments WHITE BLOOD CELL COUNT ([facility]) 3.5 K/ L 3.5-10.5 (test code = 775) RED BLOOD CELL COUNT ([facility]) 4.30 M/ L 3.93-5.22 (test code = 761) HEMOGLOBIN ([facility]) (test code = 9.1 GM/DL 11.2-15.7 L 410) HEMATOCRIT ([facility]) (test code = 31.8 % 34.1-44.9 L [...] PERCENT (BEAKER) (test code = 2801) HEMOGLOBIN [id number] 08:59:00 Test Item Value Reference Range Interpretation Comments HEMOGLOBIN A1C (BEAKER) (test code = 5.0 % 4.3-6.1 368) POCT-GLUCOSE [id number] 07:53:00 Test Item Value Reference Range Interpretation Comments POC-GLUCOSE METER 103 mg/dL 70-110 TESTED AT [facility] 6720 (BEAKER) (test code = [place] 1538) [address] IRON, TIBC, % SAT. (WITHOUT FERRITIN)2017-12-19 07:26:00 Test Item Value Reference Range Interpretation Comments IRON (BEAKER) (test code = 547) 23 ug/dL 40-160 L TOTAL IRON BINDING CAPACITY 349 ug/dL 250-450 (BEAKER) (test code = 769) IRON % SATURATION (2) (BEAKER) 7 % 20-55 L (test code = 2590) [id number] 07:12:00 Test Item Value Reference Range Interpretation Comments FERRITIN (BEAKER) (test code = 361) 809 ng/mL 5-275 H LIPID [id number] 06:54:00 Test Item Value Reference Range Interpretation [...] 100-129 Borderline 130-159 High 160-189 Very High >=190BASIC METABOLIC [id number] 06:54:00 Test Item Value Reference Range Interpretation [...] S NOT APPLICABLE FOR DIALYSIS PATIEN TS. [id number] 06:54:00 Test Item Value Reference Range Interpretation Comments MAGNESIUM (BEAKER) (test code = 1.8 mg/dL 1.6-2.6 627) [id number] 06:54:00 Test Item Value Reference Range Interpretation Comments PHOSPHORUS (BEAKER) (test code = 3.1 mg/dL 2.3-4.7 604) CREATINE KINASE (CK), TOTAL AND [id number] 06:54:00 Test Item Value Reference Range Interpretation Comments CREATINE KINASE TOTAL (BEAKER) 38 U/L 29-200 (test code = 380) CREATINE KINASE-MB (BEAKER) (test 0.9 ng/mL 0.0-6.6 code = 750) CREATINE KINASE-MB INDEX (BEAKER) 2.4 % (test code = 395) CK-MB Reference Range:<6.7 Normal6.7-10.0 Borderline>10.0 AbnormalRETICULOCYTE [id number] 06:26:00 Test Item Value Reference Range Interpretation Comments RETICULOCYTE COUNT PCT (BEAKER) (test 2.5 % 0.5-1.7 H code = 575) URINALYSIS W/ [id number] 00:52:00 Test Item Value Reference Range Interpretation [...] = 2795) RAD, CHEST, 1 VIEW, NON [id number] 22:59:00Reason for exam:->crackles on examShould this be [...] MDReport Verified Date/Time: 12/18/2017 22:59:11 Reading Location: [address] Ortho Consult Reading Room (MANUAL DIFFERENTIAL) 2017-12-18 [...] = 762) CBC W/PLT COUNT & AUTO [id number] 22:09:00 Test Item Value Reference Range Interpretation [...] 0-100 H (BEAKER) (test code = 700) [id number] 22:06:00 Test Item Value Reference Range Interpretation Comments PHOSPHORUS (BEAKER) (test code = 2.9 mg/dL 2.3-4.7 604) [id number] 22:06:00 Test Item Value Reference Range Interpretation Comments MAGNESIUM (BEAKER) (test code = 1.3 mg/dL 1.6-2.6 L 627) BASIC METABOLIC [id number] 22:06:00 Test Item Value Reference Range Interpretation [...] APPLICABLE FOR DIALYSIS PATIEN TS. HEPATIC FUNCTION [id number] 22:06:00 Test Item Value Reference Range Interpretation [...] 6-55 347) CREATINE KINASE (CK), TOTAL AND [id number] 22:06:00 Test Item Value Reference Range Interpretation Comments CREATINE KINASE TOTAL (BEAKER) 44 U/L 29-200 (test code = 380) CREATINE KINASE-MB (BEAKER) (test 1.0 ng/mL 0.0-6.6 code = 750) CREATINE KINASE-MB INDEX (BEAKER) 2.3 % (test code = 395) CK-MB Reference Range:<6.7 Normal6.7-10.0 Borderline>10.0 AbnormalTROPONIN [id number] 22:06:00 Test Item Value Reference Range Interpretation [...]
--- NOTE | 2021-07-12 15:23 | RAD REPORT ---
EXAM DESCRIPTION: Nikky Single View07/12/2021 3:12 pm CLINICAL HISTORY: cough COMPARISON: 2018 FINDINGS: Mild bilateral interstitial pulmonary opacities are unchanged. Calcified granuloma right lung. Calcified mediastinal lymph nodes. The heart is normal size IMPRESSION: Mild bilateral interstitial pulmonary opacities are unchanged. I suspect most if not all this is chronic
[2021-07-12 15:36] LABS: Absolute Lymphocytes (CBC) 0.4 K/uL (0.7-4.9); Basophils % 0.3 % (0-1.3); Hematocrit 30.5 % (36.0-45.0); Lymphocytes % 3.6 % (15.3-44.8); MPV 8.6 fL (7.6-11.3); Protime INR 1.09
[2021-07-12 15:53] LABS: ALT/SGPT 16 U/L (12-78); AST/SGOT 9 U/L (15-37); Alkaline Phosphatase 130 U/L (45-117); BUN Blood Urea Nitrogen 20 mg/dL (7-18); Bicarbonate 23 mmol/L (21-32); Bilirubin Direct 0.1 mg/dL (0-0.2); Bilirubin Total 0.3 mg/dL (0.2-1.0); Glucose Level 195 mg/dL (74-106); Magnesium 1.9 mg/dL (1.8-2.4); NT PRO-BNP 1107 pg/mL (<125); Potassium 4.3 mmol/L (3.5-5.1); Protein, Total 7.7 g/dL (6.4-8.2); Sodium Level 140 mmol/L (136-145); Troponin (Emerg Dept Use Only) < 0.02 ng/mL (0.0-0.045)
[2021-07-12 16:34] LABS: Platelet Estimate ADEQ; White Blood Cell Scan OK (OK)
[2021-07-12 16:35] LABS: Blood Morphology Comment NOTED (NOT SEEN); Poikilocytosis 1+
--- NOTE | 2021-07-12 18:03 | ER ---
Nurse's Notes [facility] Name: Allie Leroy Age: 60 yrs Sex: Female : 1960 Arrival Date: 07/12/2021 Time: 14:43 Bed 18 Private MD: Diagnosis: Aspiration Pneumonitis;Acute respiratory failure with hypoxia Presentation: 07/12 14:57 Chief complaint: EMS states: they were called to [facility] for a patient ap3 who had possibly aspirated after EGD. EMS arrived with patient 65% on room air, they placed patient on nonrebreather mask and patient recovered to 95%. Coronavirus screen: At this time, the client does not indicate any symptoms associated with coronavirus-19. Ebola Screen: No symptoms or risks identified at this time. Initial Sepsis Screen: Does the patient meet any 2 criteria? No. Patient's initial sepsis screen is negative. Does the patient have a suspected source of infection? No. Patient's initial sepsis screen is negative. Risk Assessment: Do you want to hurt yourself or someone else? Patient reports no desire to harm self or others. Onset of symptoms was July 12, 2021. Care prior to arrival: Medication(s) given: levofloxacin 500mg IV given at GI facility. Albuterol breathing treatment given X's 3 at GI facility. IV initiated. 20 GA, in the right antecubital area, Oxygen administered. via a non-rebreather mask. 14:57 Method Of Arrival: EMS: [facility] ap3 14:57 Acuity: RISHI 3 ap3 Triage Assessment: 15:04 General: Appears in no apparent distress. comfortable, Behavior is calm, cooperative, ap3 appropriate for age. 15:37 Pain: Denies pain. 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 - Social history:: Smoking status: Patient denies any tobacco usage or history of. Screenin:03 Abuse screen: Denies threats or abuse. Nutritional screening: No deficits noted. ap3 Tuberculosis screening: No symptoms or risk factors identified. Fall Risk None identified. Assessment: 16:21 General: Appears in no apparent distress. comfortable, Behavior is calm, cooperative, tr6 appropriate for age. Pain: Denies pain. Neuro: No deficits noted. Cardiovascular: No deficits noted. Respiratory: Airway is patent Respiratory effort is even, unlabored, Breath sounds with crackles in right posterior middle lobe. GI: No deficits noted. : No deficits noted. EENT: No deficits noted. Derm: No deficits noted. Musculoskeletal: No deficits noted. Vital Signs: 15:03 Weight 86.18 kg (R); Height 5 ft. 5 in. (165.10 cm); ap3 15:30 Pulse Ox 73% on R/A; tr6 15:33 BP 112 / 55 LA; Pulse 92; Resp 20; Temp 97.9(O); Pulse Ox 100% ; Weight 87.09 kg; tr6 Height 5 ft. 2 in. (157.48 cm); Pain 0/10; 16:20 Pulse Ox 96% on 5 lpm NC; tr6 15:33 Body Mass Index 35.12 (87.09 kg, 157.48 cm) tr6 ED Course: 14:43 Patient arrived in ED. am2 14:48 Balta Varela MD is Attending Physician. lisa 14:49 Kuldip Morton PA is PHCP. jr8 14:49 Kelsie Mcelroy, OSVALDO is Primary Nurse. tr6 15:01 Triage completed. ap3 15:03 Patient has correct armband on for positive identification. Bed in low position. Call ap3 light in reach. Side rails up X2. 15:03 Arm band placed on right wrist. ap3 15:13 XRAY Chest (1 view) In Process Unspecified. EDMS 15:37 No provider procedures requiring assistance completed. tr6 16:22 Patient admitted, IV remains in place. tr6 17:24 initiated transfer to [facility]. bd 18:00 Conner Le is Hospitalizing Provider. jr8 Administered Medications: 21:30 Drug: Zosyn (piperacillin-tazobactam) 3.375 grams Route: IVPB; Infused Over: 60 mins; tr6 Site: right antecubital; 22:11 Follow up: IV Status: Infusion continued upon admission tr6 Outcome: 16:22 Admitted to tr6 16:22 Condition: stable 16:22 Instructed on the need for admit. 18:02 Decision to Hospitalize by Provider. geoff 21:46 Patient left the ED. em Signatures: Dispatcher [employer] EDMS Anna Escobar Corey, MD MD cha Munoz, Edgar RN RN em Kuldip Morton PA PA jr8 Ana Rivas Amanda RN RN ap3 Kelsie Mcelroy RN RN tr6
--- NOTE | 2021-07-12 18:03 | EDPHYS ---
Physician Documentation [facility] Name: Allie Leroy Age: 60 yrs Sex: Female : 1960 Arrival Date: 07/12/2021 Time: 14:43 Bed 18 Private MD: ED Physician Balta Varela HPI: 07/12 17:17 This 60 yrs old Female presents to ER via EMS with complaints of Shortness of jr8 breath. 17:17 The patient has shortness of breath at rest. Onset: The symptoms/episode began/occurred jr8 acutely, today. Duration: The symptoms are continuous. The patient's shortness of breath has no apparent modifying factors. Associated signs and symptoms: The patient has no apparent associated signs or symptoms. Severity of symptoms: At their worst the symptoms were moderate in the emergency department the symptoms are unchanged. The patient has not experienced similar symptoms in the past. The patient has been recently seen by a physician:. This is a 60-year-old female that was brought in by EMS [facility] after having a EGD completed today. Stated that she was hypoxic and there was concern for aspiration pneumonitis. Patient had been evaluated and treated at the outpatient GI center for 2 hours with breathing treatments and other modalities but continued to be hypoxic. Was sent to the emergency room for further evaluation at that time.. 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 - Social history:: Smoking status: Patient denies any tobacco usage or history of. ROS: 17:19 Eyes: Negative for injury, pain, redness, and discharge, ENT: Negative for injury, jr8 pain, and discharge, Neck: Negative for injury, pain, and swelling, Cardiovascular: Negative for chest pain, palpitations, and edema, Abdomen/GI: Negative for abdominal pain, nausea, vomiting, diarrhea, and constipation, Back: Negative for injury and pain, MS/Extremity: Negative for injury and deformity, Skin: Negative for injury, rash, and discoloration, Neuro: Negative for headache, weakness, numbness, tingling, and seizure. 17:19 Respiratory: Positive for shortness of breath. Exam: 17:19 Eyes: Pupils equal round and reactive to light, extra-ocular motions intact. Lids and jr8 lashes normal. Conjunctiva and sclera are non-icteric and not injected. Cornea within normal limits. Periorbital areas with no swelling, redness, or edema. ENT: Nares patent. No nasal discharge, no septal abnormalities noted. Tympanic membranes are normal and external auditory canals are clear. Oropharynx with no redness, swelling, or masses, exudates, or evidence of obstruction, uvula midline. Mucous membranes moist. Neck: Trachea midline, no thyromegaly or masses palpated, and no cervical lymphadenopathy. Supple, full range of motion without nuchal rigidity, or vertebral point tenderness. No Meningismus. Cardiovascular: Regular rate and rhythm with a normal S1 and S2. No gallops, murmurs, or rubs. Normal PMI, no JVD. No pulse deficits. Abdomen/GI: Soft, non-tender, with normal bowel sounds. No distension or tympany. No guarding or rebound. No evidence of tenderness throughout. Skin: Warm, dry with normal turgor. Normal color with no rashes, no lesions, and no evidence of cellulitis. MS/ Extremity: Pulses equal, no cyanosis. Neurovascular intact. Full, normal range of motion. Neuro: Awake and alert, GCS 15, oriented to person, place, time, and situation. Motor strength 5/5 in all extremities. Sensory grossly intact. 17:19 Respiratory: the patient does not display signs of respiratory distress, Respirations: normal, Breath sounds: rales, that are mild, are scattered. Vital Signs: 15:03 Weight 86.18 kg (R); Height 5 ft. 5 in. (165.10 cm); ap3 15:30 Pulse Ox 73% on R/A; tr6 15:33 BP 112 / 55 LA; Pulse 92; Resp 20; Temp 97.9(O); Pulse Ox 100% ; Weight 87.09 kg; tr6 Height 5 ft. 2 in. (157.48 cm); Pain 0/10; 16:20 Pulse Ox 96% on 5 lpm NC; tr6 15:33 Body Mass Index 35.12 (87.09 kg, 157.48 cm) tr6 MDM: 14:49 Patient medically screened. jr8 18:00 Data reviewed: vital signs, nurses notes, lab test result(s), EKG, radiologic studies, jr8 plain films. Data interpreted: Pulse oximetry: on room air is 73 %. Interpretation: hypoxia. Counseling: I had a detailed discussion with the patient and/or guardian regarding: the historical points, exam findings, and any diagnostic results supporting the discharge/admit diagnosis, lab results, radiology results, the need for further work-up and treatment in the hospital. 07/12 14:48 Order name: Basic Metabolic Panel; Complete Time: 16:00 [facility] 07/12 14:48 Order name: CBC with Diff; Complete Time: 16:44 [facility] 07/12 14:48 Order name: LFT's; Complete Time: 16:00 [facility] 07/12 14:48 Order name: Magnesium; Complete Time: 16:00 [facility] 07/12 14:48 Order name: NT PRO-BNP; Complete Time: 16:00 [facility] 07/12 14:48 Order name: PT-INR; Complete Time: 16:00 [facility] 07/12 14:48 Order name: Troponin (emerg Dept Use Only); Complete Time: 16:00 [facility] 07/12 14:48 Order name: XRAY Chest (1 view); Complete Time: 16:00 [facility] 07/12 16:34 Order name: CBC Smear Scan; Complete Time: 16:44 [facility] 07/12 18:27 Order name: SARS-COV-2 RT PCR; Complete Time: 18:30 [facility] 07/12 18:33 Order name: Blood Culture Adult (2) la1 07/12 21:07 Order name: Glucose, Ancillary Testing; Complete Time: 06:27 [facility] 07/12 14:48 Order name: EKG; Complete Time: 14:49 [facility] 07/12 14:48 Order name: Cardiac monitoring; Complete Time: 15:37 [facility] 07/12 14:48 Order name: EKG - Nurse/Tech; Complete Time: 16:42 [facility] 07/12 14:48 Order name: IV Saline Lock; Complete Time: 15:32 [facility] 07/12 14:48 Order name: Labs collected and sent; Complete Time: 15:32 [facility] 07/12 14:48 Order name: O2 Per Protocol; Complete Time: 15:32 lisa 07/12 14:48 Order name: O2 Sat Monitoring; Complete Time: 15:32 [facility] Administered Medications: 21:30 Drug: Zosyn (piperacillin-tazobactam) 3.375 grams Route: IVPB; Infused Over: 60 mins; tr6 Site: right antecubital; 22:11 Follow up: IV Status: Infusion continued upon admission tr6 Disposition: 07/13 07:53 Co-signature as Attending Physician, Balta Varela MD I agree with the assessment and [facility] plan of care. Disposition Summary: 07/12/21 18:02 Hospitalization Ordered Hospitalization Status: Inpatient Admission jr8 Provider: Conner Le jr Location: Telemetry/[facility]Sur (Inpatient) 8 Condition: Stable jr8 Problem: new jr8 Symptoms: have improved jr8 Bed/Room Type: [facility] Room Assignment: 229(07/12/21 20:50) Diagnosis - Aspiration Pneumonitis jr8 - Acute respiratory failure with hypoxia jr8 Forms: - Medication Reconciliation Form jr8 - SBAR form jr8 Signatures: Dispatcher [employer] EDMS Keisha Alvarez RN RN mw Anderson, Corey, MD MD [facility] Kuldip Morton PA PA jr8 Donald Guzmán, WEB COMMUNICATIONS SPECIALIST-C WEB COMMUNICATIONS SPECIALIST-Cla1 Ana Pham RN RN ap3 Kelsie Mcelroy RN RN tr6 Corrections: (The following items were deleted from the chart) 07/12 17:12 16:00 CORONAVIRUS+MR.LAB.BRZ ordered. EDMS EDMS 20:50 18:02 8
[2021-07-12] MEDS ORDERED: PIPER/TAZO/NS 3.375gm 3.375 GM/100 ML BAG ONE (20:32)
[2021-07-12] MEDS: NA CHLORIDE 0.9% 1,000 ML IV SCH (20:43)
[2021-07-12] MEDS ORDERED: ONDANSETRON 4 MG/2 ML VIAL IV PRN (20:43)
[2021-07-12] MEDS: HEPARIN 5000 UNIT/ML 1 ML VIAL SQ SCH (21:00)
[2021-07-12] MEDS: INSULIN -REGULAR HUMAN 50 UNIT/0.5 ML ML SQ SCH (21:00)
--- NOTE | 2021-07-12 21:18 | P.HP ---
Certification for Inpatient Patient admitted to: Inpatient Patient will require the following post-hospital care: None Practitioner: I am a practitioner with admitting privileges, knowledge of patient current condition, hospital course, and medical plan of care. Services: Services provided to patient in accordance with Admission requirements found in Title 42 Section 412.3 of the Code of Federal Regulations Patient History Date of Service: 07/12/21 Primary Care Provider: Jordyn ortiz NP Reason for admission: aspiration pneumonia History of Present Illness: 60-year-old female with history of diabetes mellitus type 2, GERD, iron deficiency anemia, CHF, hypertension, CAD and aortic valve replacement presented to the emergency department for shortness of breath. Patient was evaluated at outpatient GI clinic and had EGD performed today, report was that after EGD patient had episode of vomiting/coughing and was witnessed to have aspirated. After aspiration patient noted to be hypoxic with saturations in the seventies on room air. Patient was evaluated in the emergency department labs were significant for hemoglobin 9.3 hematocrit 30.5 creatinine 1.24 GFR 44 glucose 195 BNP 1107 chest x-ray demonstrated mild bilateral interstitial pulmonary opacities which are unchanged suspected to have been chronic. Patient still requiring oxygen, nasal cannula 5 L at this time. Patient was given IV Zosyn in the emergency department, ED provider wishes to admit for further evaluation and management of suspected aspiration pneumonia, hypoxia. Allergies codeine Allergy (Verified 12/08/17 19:48) Unknown cortisone Allergy (Unverified 12/18/17 18:58) Unknown Home Medications: Amlodipine Besylate [Norvasc] 1 tab PO BID 12/08/17 Aspirin [Aspir-Low] 1 tab PO DAILY 12/08/17 Atorvastatin Calcium [Lipitor*] 1 tab PO DAILY 12/08/17 Duloxetine HCl [Cymbalta] 1 tab PO BEDTIME 12/08/17 Duloxetine HCl [Cymbalta] 1 tab PO DAILY 12/08/17 Ferrous Sulfate 1 tab PO BID 12/08/17 Fluticasone [Flonase 50MCG Nasal [place]*] 2 puff IH DAILY 12/08/17 Irbesartan [Avapro*] 1 tab PO BEDTIME 12/08/17 Metformin HCl 1 tab PO BID 12/08/17 Pantoprazole Sodium 1 tab PO PRN PRN 12/08/17 clonazePAM [Klonopin*] 1 tab PO BID 12/08/17 - Past Medical/Surgical History Diabetic: Yes -: HTN -: DM-NIDDM -: GERD -: TESSY -: CAD -: Aortic valve replacement -: Left toe amputation -: Aortic valve [id number] - Family History Father -: Heart disease, Stroke Mother -: Heart disease - Social History Smoking Status: Former smoker Alcohol use: No CD- Drugs: No Caffeine use: No Place of Residence: Home Review of Systems 10-point ROS is otherwise unremarkable Respiratory: Shortness of Breath Gastrointestinal: Abdominal Pain Physical Examination - Physical Exam General: Alert, In no apparent distress, Oriented x3 HEENT: Other (Mucous membranes dry and pale), EOMI, Sclerae nonicteric Neck: Supple Respiratory: Normal air movement, Diminished Cardiovascular: Regular rate/rhythm, Normal S1 S2 Capillary refill: <2 Seconds Gastrointestinal: Normal bowel sounds, No tenderness, No rebound, No guarding Musculoskeletal: No tenderness Integumentary: No rashes Neurological: Normal speech, Normal strength at 5/5 x4 extr, Normal tone, Normal affect - Studies Laboratory Data (last 24 hrs) 07/12/21 15:17: PT 12.6 H, INR 1.09 07/12/21 15:17: WBC 10.90, Hgb 9.3 L, Hct 30.5 L, Plt Count 169 07/12/21 15:17: Sodium 140, Potassium 4.3, BUN 20 H, Creatinine 1.24, Glucose 195 H, Magnesium 1.9, Total Bilirubin 0.3, AST 9 L, ALT 16, Alkaline Phosphatase 130 H Assessment and Plan - Plan Assessment: Dyspnea, hypoxia suspected aspiration pneumonia S/P EGD Diabetes mellitus type 2 Iron deficiency anemia GERD Hypertension CAD status post stents Aortic valve replacement Plan: Dyspnea, hypoxia suspected aspiration pneumonia S/P EGD: Continue with supplemental oxygen as needed, patient currently nasal cannula at 5 L, blood cultures obtained in the emergency department continue with Zosyn IV, incentive spirometry. Patient n.p.o. at this time will get speech therapy consult. Patient reports difficulty swallowing over the course of last few months. We will also provide Protonix IV. Diabetes mellitus type 2: Every 6 hours Accu-Chek, sliding scale insulin therapy. Iron deficiency anemia: Transfuse to maintain hemoglobin greater than 8, monitor daily labs. Will obtain TESSY labs. GERD: Continue with IV Protonix. Hypertension: Obtain and continue medication, will need to hold oral medications as patient is n.p.o. at this time. Restart when appropriate. CAD status post stents: obtain and continue home meds. Aortic valve replacement: obtain and continue home meds. monitor on tele DVT PPX: Heparin Code status: Full Discharge Plan: Home Plan to discharge in: Greater than 2 days - Advance Directives Does patient have a Living Will: No Does patient have a Durable POA for Healthcare: No - Code Status/Comfort Care Code Status Assessed: Yes (Full code) Critical Care: No Time Spent Managing Pts Care (In Minutes): 55
[2021-07-12] MEDS ORDERED: HEPARIN 5000 UNIT/ML 1 ML VIAL ONE (21:22)
[2021-07-12] MEDS ORDERED: NA CHLORIDE 0.9% 1,000 ML ONE (21:23)
[2021-07-12 22:39] VITALS: BMI 35.1
[2021-07-13] MEDS: PIPER/TAZO/NS 3.375gm 3.375 GM/100 ML BAG IVPB SCH ×3 (00:59→16:10)
[2021-07-13 03:19] LABS: Urine Appearance CLOUDY (Clear); Urine Bilirubin NEGATIVE (Negative); Urine Blood 1+ (Negative); Urine Color YELLOW (Yellow); Urine Glucose NEGATIVE (Negative); Urine Microscopic Reflex ORDER UMIC; Urine Protein TRACE (Negative); Urine Specific Gravity 1.015 (1.005-1.030); Urine pH 6.5 (5.0-7.0)
[2021-07-13 04:10] LABS: Urine Bacteria <20 /HPF (<20); Urine RBC <5 /HPF (NONE SEEN)
[2021-07-13 06:16] LABS: Absolute Lymphocytes (CBC) 0.8 K/uL (0.7-4.9); Basophils % 0.6 % (0-1.3); Lymphocytes % 9.3 % (15.3-44.8); MPV 8.2 fL (7.6-11.3); RBC Red Blood Cell Count 3.62 M/uL (3.86-4.86)
[2021-07-13 06:46] LABS: Albumin 2.7 g/dL (3.4-5.0); Bilirubin Total 0.7 mg/dL (0.2-1.0); Ferritin 28.5 ng/mL (8-388); Thyroid Stimulating Hormone 1.49 uIU/mL (0.360-3.740); Uric Acid 5.5 mg/dL (2.6-6.0)
[2021-07-13] MEDS: INSULIN -REGULAR HUMAN 50 UNIT/0.5 ML ML SQ SCH ×4 (07:30→22:12)
[2021-07-13] MEDS: HEPARIN 5000 UNIT/ML 1 ML VIAL SQ SCH ×2 (09:47→22:13)
[2021-07-13] MEDS: NA CHLORIDE 0.9% 1,000 ML IV SCH ×2 (09:47→16:08)
--- NOTE | 2021-07-13 12:05 | RAD REPORT ---
EXAM DESCRIPTION: US - Renal Ultrasound-Complete - 07/13/2021 1:28 am CLINICAL HISTORY: Acute renal insufficiency COMPARISON: None. FINDINGS: The right kidney measures 10 cm with a normal echotexture. 1.2 centimeter cyst The left kidney measures 9 centimeters with a normal echotexture. A 5 centimeter hypoechoic mass Hydronephrosis is not seen. No gross abnormality of bladder is seen IMPRESSION: 5 centimeter hypoechoic left renal mass probably a benign complex cyst. A cystic neoplas m can have this appearance but is considered less likely. It is recommended that the patient have a followup ultrasound in 3 months to assess stability. Altern atively patient have a CT scan with and without IV contrast
--- NOTE | 2021-07-13 12:33 | CON ---
Date of Consultation: 07/13/2021 Reason For Consultation: Elevated BUN and creatinine, fluid management. History Of Present Illness: This is a pleasant 60-year-old female with significant past medical history of diabetes complicated with neuropathy, no retinopathy, GERD, hypertension, coronary artery disease status post valve replacement, the patient was in her regular state of health. Apparently, the patient had nausea and decreased intake with difficulty swallowing. The patient went to EGD. After EGD, the patient apparently had aspiration with nausea and vomiting. Primary workup showed elevation in creatinine 1.2 with GFR of 44. For that reason, the patient was admitted and we have been consulted. The patient admitted that she has been taking nonsteroid on and off and the patient is apparently on ARB with metformin. The patient denied any IV contrast. No recent change in her medications. The patient over the night was started on IV hydration. Kidney function has been improved. Creatinine down to 1.1 with GFR of 49. Past Medical History: Includes; 1. Hypertension. 2. Diabetes complicated with neuropathy. 3. GERD. 4. Iron deficiency anemia. 5. Coronary artery disease. 6. Aortic valve replacement. Past Surgical History: Includes; 1. Aortic valve replacement in 2018. 2. Toe amputation. 3. EGD. Family History: Positive for hypertension and CAD. Social History: Ex-smoker. Denied alcohol. Denied drugs abuse. Review of Systems: Head and Neck: No red eye. No ear pain. GI: Has nausea, vomiting. Has epigastric pain. Has dysphagia. 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 Respiratory: No shortness of breath. Cardiovascular: No shortness of breath. Neuro: No weakness. Musculoskeletal: Generalized fatigue. Physical Examination: General: When I saw the patient; the patient lying in bed, comfortable. Vital Signs: Blood pressure 113/64, pulse of 83, afebrile. Chest: Clear to auscultation. Heart: S1, S2. Regular. Abdomen: Soft, nontender. Extremity: No edema. Neurological: Alert, oriented. No focality. Laboratory Data: Sodium 139, potassium 5, bicarb 25, BUN 20, creatinine 1.1, GFR of 49, calcium 8.3, uric acid 5.5, iron saturation 6.8, ferritin 28. Yesterday creatinine 1.2, GFR of 44. WBC 10.9, H and H 9.3/30.5. Today, H and H 8.2/26. Urinalysis; WBC more than 50. Renal ultrasound done, no reading yet. Reviewing the image, no significant hydronephrosis on the right neither on the left. Current Medications: The patient on include; 1. Zosyn. 2. Insulin. 3. Normal saline. Assessment And Plan: 1. Acute kidney injury secondary to prerenal, secondary to dehydration, poor intake, superimposed with toxic ATN secondary to urinary tract infection, on the recovery phase. I am going to continue IV hydration. I agree with holding the ARB and we will monitor the patient. 2. Urinary tract infection. We will follow up culture. 3. Hypertension with the presence of acute kidney injury. I agree with holding ARB. Hold all blood pressure medications as blood pressure on the lower side. 4. Aspiration pneumonia. The patient on Zosyn. Dosage appropriate. 5. Diabetes as by primary. Time spent examining the patient [id number] placing order discussing with the patient reviewing data discussing the case with all of our subspecialty including hospitalist 65 minutes ROSHNI Voice ID: [id number] Report ID: [id number] NARAYAN
[2021-07-13] MEDS: SOD FERRIC GLUC COMPLX/SUCROSE 250 MG in NA CHLORIDE 0.9% 250 ML IV SCH (13:16)
--- NOTE | 2021-07-13 16:10 | P.PN ---
Subjective Date of Service: 07/13/21 Primary Care Provider: Jordyn ortiz NP Chief Complaint: aspiration pneumonia Subjective: Improving (denies any pain or difficulty breathing. just hungry) <Tena Garcia - Last Filed: 07/13/21 15:52> Date of Service: 07/13/21 <Chris Johnson - Last Filed: 07/13/21 17:56> Review of Systems 10-point ROS is otherwise unremarkable <Tena Garcia - Last Filed: 07/13/21 15:52> Physical Examination - Vital Signs Temperature: 97.9 F Blood Pressure: 113/54 Pulse: 88 Respirations: 17 Pulse Ox (%): 94 - Studies Laboratory Data (last 24 hrs) 07/12/21 15:17: WBC 10.90, Hgb 9.3 L, Hct 30.5 L, Plt Count 169 07/12/21 15:17: Sodium 140, Potassium 4.3, BUN 20 H, Creatinine 1.24, Glucose 195 H, Magnesium 1.9, Total Bilirubin 0.3, AST 9 L, ALT 16, Alkaline Phosphatase 130 H <Tena Garcia - Last Filed: 07/13/21 15:52> Assessment And Plan - Plan Physical Exam: Gen: alert and oriented x 3, cooperative, pleasant HEENT: EOMI Pulm: scattered rales, on 4L NC CV: regular rate, no edema GI: normoactive BS, non-tenderness MSK: no swelling Skin: no rashes Neruo: normal tone, speaking normally Assessment: Dyspnea, hypoxia suspected aspiration pneumonia S/P EGD JENAE secondary to prerenal, secondary to dehydration, poor intake, superimposed with toxic ATN secondary to urinary tract infection Diabetes mellitus type 2 Iron deficiency anemia GERD Hypertension CAD status post stents Aortic valve replacement Plan: -Continue IV antibiotics -Urine and blood cultures pending -Patient reports difficulty swallowing over the course of last few months -NPO until speech therapy can evaluate -Supplemental oxygen prn and incentive spirometry -Nephrology consulted -Continue IVF -Trend H/H -Start IV iron -Accuchecks and SSI -Telemetry -Restart home meds when appropriate DVT PPX: Heparin Code status: Full Discharge Plan: Home Plan to discharge in: 48 Hours Time Spent Managing PTS Care (In Minutes): 30 <Tena Garcia - Last Filed: 07/13/21 15:52> - Plan Patient seen and examined this morning. Feeling much better this morning, requiring O2, no significant improvement in hypoxia ST to see patient if no significant improvement, will consult pulm <Chrsi Johnson - Last Filed: 07/13/21 17:56>
--- NOTE | 2021-07-13 16:14 | EKG ---
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 MEASUREMENT RESULTS: Intervals: Rate: 94 AR: 160 QRSD: 118 QT: 370 QTc: 462 [place]: P: 59 AR: 160 QRS: -31 T: 113 INTERPRETIVE STATEMENTS: Sinus rhythm with occasional premature ventricular complexes Left axis deviation Left ventricular hypertrophy with QRS widening and repolarization abnormality Inferior infarct, age undetermined Abnormal ECG Compared to ECG 12/18/2017 15:26:33 Ventricular premature complex(es) now present Left ventricular hypertrophy now present Early repolarization now present Myocardial infarct finding now present Left bundle-branch block no longer present Electronically Signed On 07-13-21 16:11:51 CDT by Dionisio Lam
[2021-07-14] MEDS: PIPER/TAZO/NS 3.375gm 3.375 GM/100 ML BAG IVPB SCH ×3 (01:33→17:25)
[2021-07-14] MEDS: NA CHLORIDE 0.9% 1,000 ML IV SCH ×3 (04:13→19:08)
[2021-07-14 05:14] LABS: UR PROTEIN 23.6 mg/dL (<11.9); Urine Protein/Creatinine Ratio 0.49 ratio (<0.15)
[2021-07-14 06:10] LABS: Absolute Lymphocytes (CBC) 0.7 K/uL (0.7-4.9); Albumin 2.6 g/dL (3.4-5.0); Basophils % 0.9 % (0-1.3); Hematocrit 25.8 % (36.0-45.0); MPV 8.4 fL (7.6-11.3); Phosphorus 2.9 mg/dL (2.5-4.9); Potassium 4.4 mmol/L (3.5-5.1); RBC Red Blood Cell Count 3.59 M/uL (3.86-4.86)
[2021-07-14] MEDS: INSULIN -REGULAR HUMAN 50 UNIT/0.5 ML ML SQ SCH ×4 (07:30→20:57)
[2021-07-14] MEDS: HEPARIN 5000 UNIT/ML 1 ML VIAL SQ SCH ×2 (08:45→21:01)
--- NOTE | 2021-07-14 08:45 | RAD REPORT ---
EXAM DESCRIPTION: CT - Chest For Pe Angio - 07/14/2021 8:28 am CLINICAL HISTORY: hypoxia, r/o PE, aspiration COMPARISON: Pelvis Wo Cont dated 03/26/2021 FINDINGS: Chest Wall: No suspicious thyroid nodules or pathologic lymphadenopathy. Lungs: Widespread ground-glass opacities throughout the left lung and to a lesser extent the right natty ng base. Pleura: Small effusions, left greater than right. Mediastinum/dejan: No pathologic lymphadenopathy. Pulmonary arteries/Aorta: No filling defect identified. No aortic aneurysm. Heart: No significant pericardial effusion. Normal heart size. Aortic valve prosthesis. Coronary sukumar ry calcifications. Upper abdomen: Question left upper pole renal cyst but this is incompletely imaged. Cirrhotic liver m orphology. Splenomegaly. Bones: No acute abnormality. IMPRESSION: Negative for pulmonary embolism. Airspace disease which is predominantly left-sided coul d represent aspiration pneumonitis/pneumonia given the patient's recent procedure. Small bilateral ef fusions could represent some component of mild edema as well.
--- NOTE | 2021-07-14 14:04 | PN ---
Date of Progress Note: 07/14/2021 Subjective: The patient was admitted with acute kidney injury secondary to prerenal secondary to dehydration. The patient's after hydration kidney function has been improved. The patient found to have UTI. Physical Examination: Vital Signs: Blood pressure 112/54, pulse of 83, afebrile. The patient making good urine output. Chest: Clear to auscultation. Heart: S1, S2 regular. Abdomen: Soft, nontender. Extremity: Trace edema. Neurologic: Alert. No focality. Laboratory Data: WBC 6.5, H and H 8/25.8. Sodium 142, potassium 4.4, bicarb 22, BUN 15, creatinine 1, GFR of 54, calcium 8.2, phosphorus 2.9, albumin 2.6, corrected calcium is 9.4. Current Medications: The patient on include; 1. IV iron. 2. Heparin. 3. Zofran. 4. Normal saline at 100 per hour. Assessment And Plan: 1. Acute kidney injury secondary to prerenal, on the recovery phase. We will continue hydration. Decrease IV fluid to 50 per hour. The patient had CT with contrast today showing pneumonia. I am going to continue hydration as the patient just exposed to contrast and we will follow up. 2. Urinary tract infection. The patient on Zosyn. Culture negative. We will follow up. 3. Aspiration pneumonia. Continue Zosyn, dose appropriate. We will follow up with primary. 4. Esophageal stricture, status post dilatation. We will follow up with GI. 5. Hemoptysis secondary to aspiration pneumonia. Continue current antibiotic. We will follow up with primary. Time spent examining the patient [id number] placing order discussing with the patient reviewing data discussing the case with all of our subspecialty including hospitalist 45 minutes ROSHNI Voice ID: [id number] Report ID: [id number] NARAYAN
--- NOTE | 2021-07-14 16:41 | P.PN ---
Subjective Date of Service: 07/14/21 Primary Care Provider: Jordyn ortiz NP Chief Complaint: aspiration pneumonia Subjective: Worsening (more hypoxic, hgb downtrending, feels about the same, some hematemesis after CT scan) Review of Systems 10-point ROS is otherwise unremarkable Physical Examination - Vital Signs Temperature: 97.9 F Blood Pressure: 105/54 Pulse: 94 Respirations: 18 Pulse Ox (%): 93 Assessment & Plan Physician Review Additional Text: Physical Exam: Gen: alert and oriented x 3, cooperative, pleasant HEENT: EOMI, hematemesis Pulm: diminished b/l bases, L crackles, on 10L NC CV: regular rate, no edema GI: Soft, nontender, nondistended MSK: no swelling Skin: no rashes Assessment: Dyspnea, hypoxia suspected aspiration pneumonia S/P EGD JENAE secondary to prerenal, secondary to dehydration, poor intake, superimposed with toxic ATN secondary to urinary tract infection Diabetes mellitus type 2 Iron deficiency anemia GERD Hypertension CAD status post stents Aortic valve replacement -Continue IV antibiotics -Patient more hypoxic, CT scan ordered to rule out PE, patient with elevated D- dimer -Pulmonology consulted, will discuss if may benefit from steroids -Urine and blood cultures pending -Patient reports difficulty swallowing over the course of last few months - s/p EGD for dilatation -NPO until speech therapy can evaluate, may take a few days. Bedside swallow by nursing ordered -Supplemental oxygen prn and incentive spirometry -Nephrology consulted -Continue IVF -Started IV iron -Accuchecks and SSI -Telemetry DVT PPX: Heparin Code status: Full Dispo: anticipate dc home, likely 2-3 days Time Spent Managing Pts Care (In Minutes): 35
[2021-07-14] MEDS: METHYLPREDNISOLONE 125 MG INJ IV SCH ×2 (17:25→23:41)
--- NOTE | 2021-07-14 20:13 | P.CNS ---
Date of Consult: 07/14/21 Reason for Consult: Resp failure Primary Care Provider: Jordyn ortiz NP Chief Complaint: aspiration pneumonia History of Present Illness: age 60 prev healthy with no resp complaints AW resp failure after EGD / Pt is hypoxic, poss asp penumonitis/ Metabolic syndrom Little SOB no cough c/o mild hemoptysis Allergies codeine Allergy (Verified 07/12/21 22:40) Unknown cortisone Allergy (Verified 07/12/21 22:40) Unknown Home Medications: Amlodipine Besylate [Norvasc] 1 tab PO BID 12/08/17 Aspirin [Aspir-Low] 1 tab PO DAILY 12/08/17 Atorvastatin Calcium [Lipitor*] 1 tab PO DAILY 12/08/17 Duloxetine HCl [Cymbalta] 1 tab PO DAILY 12/08/17 Ferrous Sulfate 1 tab PO BID 12/08/17 Fluticasone [Flonase 50MCG Nasal [place]*] 2 puff IH DAILY 12/08/17 Irbesartan [Avapro*] 1 tab PO BEDTIME 12/08/17 Metformin HCl 1 tab PO BID 12/08/17 clonazePAM [Klonopin*] 1 tab PO BID 12/08/17 Gabapentin 300 mg PO BEDTIME 07/12/21 - Past Medical/Surgical History Diabetic: Yes -: HTN -: DM-NIDDM -: GERD -: TESSY -: CAD -: Aortic valve replacement -: Left toe amputation -: Aortic valve [id number] - Family History Father Medical History: Heart disease, Stroke Mother Medical History: Heart disease - Social History Smoking Status: Current every day smoker Alcohol use: No CD- Drugs: No Caffeine use: No Place of Residence: Home Review of Systems 10-point ROS is otherwise unremarkable Respiratory: Shortness of Breath Physical Examination Temp Pulse Resp BP Pulse Ox 97.9 F 94 H 18 105/54 L 93 07/14/21 16:41 07/14/21 16:41 07/14/21 16:41 07/14/21 16:41 07/14/21 16:41 General: Alert, In no apparent distress, Oriented x3 Neck: Supple Respiratory: Clear to auscultation bilaterally Cardiovascular: No edema, Regular rate/rhythm - Problems (1) Respiratory failure Current Visit: Yes Status: Acute Plan: age 60 AW hypoxemia after EGD/ Ct scan AIr space changes L>R/ normal WBC add Steroids/ oral Augmentin. Advance diet/Severe iron def anemia Qualifiers: Chronicity: acute
[2021-07-14] MEDS: AMOX/K CLAV 500 MG TAB PO SCH (21:01)
--- NOTE | 2021-07-15 06:02 | P.PN ---
Subjective Date of Service: 07/15/21 Primary Care Provider: Jordyn ortiz WIRELESS SALES ASSOCIATE Chief Complaint: aspiration pneumonia Subjective: Worsening (episode this morning after returning to bed from bedside commode, had sinus tachycardia to 130s, hypoxic to 70s on 10 L nasal cannula, and chest pain.) Review of Systems 10-point ROS is otherwise unremarkable Physical Examination - Vital Signs Temperature: 97.7 F Blood Pressure: 123/62 Pulse: 85 Respirations: 19 Pulse Ox (%): 96 Assessment & Plan Physician Review Additional Text: Physical Exam: Gen: alert and oriented x 3, cooperative, pleasant HEENT: EOMI Pulm: diminished with b/l crackles on 10L NC CV: Sinus tachycardia, no edema GI: Soft, nontender, nondistended MSK: no swelling Skin: no rashes Assessment: Dyspnea, hypoxia suspected aspiration pneumonia S/P EGD JENAE secondary to prerenal, secondary to dehydration, poor intake, superimposed with toxic ATN secondary to urinary tract infection Diabetes mellitus type 2, non insulin dependent Iron deficiency anemia GERD Hypertension CAD status post stents Aortic valve replacement -Continue antibiotics -Patient more hypoxic, CT negative for PE, mild bilateral pleural effusion -Pulmonology consulted, switch Zosyn to Augmentin, started steroids on 07/14 -Urine and blood cultures pending -so far no growth -Patient reports difficulty swallowing over the course of last few months - s/p EGD for dilatation -was NPO until speech therapy can evaluate, may take a few days. Bedside swallow by nursing done yesterday and tolerated well -wean O2 as needed -placed on BIPAP this morning after episode, pt appears volume overloaded, lasix IV 20mg ordered, henry inserted for strict I/Os -Nephrology consulted -continue IV iron -Accuchecks and SSI -Telemetry -Cardiology consulted, troponin elevated, NSTEMI, planning for cardiac cath tomorrow DVT PPX: Heparin Code status: Full Dispo: anticipate dc home, likely 3-4 days Time Spent Managing Pts Care (In Minutes): 35
[2021-07-15 06:09] LABS: Absolute Lymphocytes (CBC) 0.4 K/uL (0.7-4.9); Basophils % 0.2 % (0-1.3); Hematocrit 26.4 % (36.0-45.0); Lymphocytes % 6.6 % (15.3-44.8); MPV 8.3 fL (7.6-11.3); RBC Red Blood Cell Count 3.63 M/uL (3.86-4.86)
[2021-07-15 06:18] LABS: Albumin 2.6 g/dL (3.4-5.0); Phosphorus 3.8 mg/dL (2.5-4.9); Potassium 5.1 mmol/L (3.5-5.1)
--- NOTE | 2021-07-15 06:19 | P.PN ---
Subjective Date of Service: 07/15/21 Primary Care Provider: Jordyn ortiz FOREIGN DIPLOMAT Chief Complaint: aspiration pneumonia Subjective: No new changes Physical Examination - Vital Signs Temperature: 97.7 F Blood Pressure: 123/62 Pulse: 85 Respirations: 19 Pulse Ox (%): 96 - Physical Exam General: Other (Appears as her stated age) HEENT: Normocephalic Neck: Supple Respiratory: Other (Symmetric chest expansion) Cardiovascular: No rubs, No murmurs Gastrointestinal: Soft and benign, Non-distended Musculoskeletal: No clubbing Integumentary: No warmth Neurological: Normal tone Urinary: Other (No bladder distention) External genitalia: Other Rectal: Other Assessment And Plan - Plan # JENAE 2/2 prerenal state +/- ATN Improved Cont henry for now Monitor I/O, renal panel Received IV contrast upon CTA chest on 07/14; monitor for contrast nephropathy in the next 1-2 days Serum Na wnl; liberal po fluid intake # UTI On abx F/u cultures # Acute respiratory failure Suspected to be 2/2 aspiration event CTPE neg for pulmo embolism On abx Started steroids on 07/14 Lasix Do NOT restrict po fluid intake as above # Hx of AVR 2/2 severe aortic stenosis +Pulmo congestion/edema Cont lasix Started on metoprolol to lower HR # NSTEMI Cardiology consulted [facility] pending
[2021-07-15] MEDS: INSULIN -REGULAR HUMAN 50 UNIT/0.5 ML ML SQ SCH ×4 (07:30→20:42)
[2021-07-15] MEDS: NA CHLORIDE 0.9% 1,000 ML IV SCH (08:16)
[2021-07-15] MEDS: AMOX/K CLAV 500 MG TAB PO SCH ×2 (09:00→20:48)
[2021-07-15] MEDS: HEPARIN 5000 UNIT/ML 1 ML VIAL SQ SCH (09:00)
[2021-07-15] MEDS: METHYLPREDNISOLONE 125 MG INJ IV SCH ×2 (09:00→20:48)
[2021-07-15] MEDS ORDERED: FUROSEMIDE 20 MG/ 2ML VIAL IV ONE ×2 (09:07→17:00)
[2021-07-15] MEDS ORDERED: FUROSEMIDE 20 MG/ 2ML VIAL ONE (09:31)
--- NOTE | 2021-07-15 09:47 | RAD REPORT ---
EXAM DESCRIPTION: RAD - Chest Single View - 07/15/2021 9:38 am CLINICAL HISTORY: chest pain COMPARISON: Chest Single View dated 07/12/2021; Chest Single View dated 12/18/2017; Chest Pa And Lat (2 Views) dated 12/09/2017; Chest Single View dated 12/08/2017 FINDINGS: Lines: None. Lungs: Diffuse increased prominence of the pulmonary interstitium. Pleural: No significant pleural effusions or pneumothorax. Cardiac: Cardiomegaly. Aortic valve prosthesis. Bones: No acute fractures. Other: IMPRESSION: Diffuse increased prominence of the pulmonary interstitium concerning for edema, althoug h pneumonia could appear similar.
[2021-07-15] MEDS ORDERED: ASPIRIN 81 MG CHEWABLE TABLET PO ONE (11:29)
--- NOTE | 2021-07-15 12:14 | CON ---
Date of Consultation: 07/14/2021 Reason For Consultation: Pneumonia, trigeminy, and a short run of ventricular tachycardia. History Of Present Illness: Ms. Leroy is a 60-year-old who was admitted with shortness of breath, w as found to have pneumonia. No cardiac symptoms reported, although the patient has had a history of congestive heart failure, hypertension, chronic renal disease, coronary artery disease, anemia, gastr oesophageal reflux disease, diabetes, previous stents in the past, and an aortic valve disorder. Aga in, no cardiac complaint. She had had an EGD today and was found to be hypoxic, admitted for aspirat ion pneumonitis. While she was hypoxic, she had some short runs of ventricular tachycardia and trige nessa without any cardiac complaints. Past Medical History: As stated above. Allergies: SHE IS ALLERGIC TO CODEINE AND CORTISONE. Review of Systems: Negative. Social History: Negative. Family History: Negative. Medications: At home include Norvasc, Lipitor, Cymbalta, aspirin, iron, gabapentin, Avapro, metformi n, and Klonopin. Physical Examination: Vital Signs: Stable. She was afebrile. Heart rate 100, PVCs, blood pressure was 131/67. I's and O 's adequate. O2 saturation was 92% on 4 L nasal cannula. HEENT: Exam is negative. Neck: Supple with no bruit. Chest: Clear to auscultation and percussion. Cardiac: Exam revealed a regular rhythm and rate. No murmurs, gallops, or rubs. Abdomen: Obese but benign. Extremities: Revealed trace edema. Diagnostic Data: Hemoglobin was 8.0. D-dimer of 1319. Troponin was pending when I saw the patient. Impression And Plan: Trigeminy and occasional short runs of ventricular tachycardia in a patient wit h pneumonia, hypoxia which is probably the cause. Troponin is pending. BNP is unremarkable. No jose juan dence of congestive heart failure by physical examination. Her potassium is normal. Her magnesium i s normal. She has had a history of heart disease, aortic valve disease. She has had stent before. Has blood pressure, diabetes, dyslipidemia. No plans to change any of her medical therapy at this po int. I think she needs to have her pneumonia treated. Dr. Iqbal in Nephrology is on board follow ing her. She has had an acute kidney injury, which is prerenal. She is being hydrated. She has a U TI, on Zosyn; aspiration pneumonia, on Zosyn. She has an esophageal stricture, status post dilatatio n, had some hemoptysis because of her pneumonia. As stated earlier, she has had aortic valve replace ment. I think it would be very reasonable to do an another echocardiogram on Mrs. Leroy. Her last echocardiogram in the hospital here showed a severe aortic stenosis before her surgery and an ejectio n fraction of 59%. ABDIEL/CRISTINO Voice ID: [id number] Report ID: [id number]
--- NOTE | 2021-07-15 13:14 | PN ---
Date of Progress Note: 07/15/2021 Ms. Leroy had came in with aspiration pneumonia, has acute kidney injury secondary to prerenal and d ehydration, had UTI. She is on antibiotics and gets hydrated. She has an esophageal stricture. His tory of aortic valve replacement, history of CAD with stent, hypertension, diabetes, dyslipidemia. S he has done well from an aspiration pneumonia standpoint. Yesterday I saw her because of occasional PVCs, very short run of VT. Normal potassium and magnesium. Echocardiogram is pending. Overnight, she did not have any further arrhythmias. We will see what her echo shows. No change in medical the rapy for now. ABDIEL/CRISTINO Voice ID: [id number] Report ID: [id number]
[2021-07-15] MEDS: METOPROLOL TAR 25 MG TAB PO SCH (16:29)
[2021-07-15] MEDS: ENOXAPARIN 100 MG/ML SYR SQ SCH (20:49)
[2021-07-16] MEDS: ASPIRIN 81 MG CHEWABLE TABLET PO SCH (05:51)
[2021-07-16] MEDS: METOPROLOL TAR 25 MG TAB PO SCH ×2 (05:51→17:12)
--- NOTE | 2021-07-16 06:04 | P.PN ---
Subjective Date of Service: 07/16/21 Primary Care Provider: Jordyn ortiz NP Chief Complaint: aspiration pneumonia Subjective: Other (she underwent left heart catheterization today) Physical Examination - Vital Signs Temperature: 97.6 F Blood Pressure: 129/60 Pulse: 86 Respirations: 19 Pulse Ox (%): 97 - Physical Exam General: Other (appears as her stated age) HEENT: Atraumatic, Normocephalic Neck: Supple Respiratory: Other (symmetric chest expansion) Cardiovascular: No rubs, No murmurs Gastrointestinal: Soft and benign, Non-distended Musculoskeletal: Swelling Integumentary: No warmth Neurological: Normal speech, Normal tone Urinary: Other (no bladder distention) External genitalia: Deferred Rectal: Deferred Assessment And Plan - Plan # JENAE 2/2 prerenal state +/- ATN SCr increased to 1.6, potentially from contrast nephropathy Cont henry for now Monitor I/O, renal panel Received IV contrast upon CTA chest on 07/14 & upon LHC on 07/16; monitor for contrast nephropathy in the next 1-2 days Serum Na wnl; liberal po fluid intake # UTI On abx F/u cultures # Acidosis Start oral bicarbonate twice a day # Acute respiratory failure Suspected to be 2/2 aspiration event CTPE neg for pulmo embolism On abx Started steroids on 07/14 Continue Lasix 40 mg IV twice a day today then transition to 40 g by mouth twice a day tomorrow Do NOT restrict po fluid intake as above # Hx of TAVR 2/2 severe aortic stenosis +Pulmo congestion/edema Cont lasix Continue metoprolol same dose # NSTEMI S/p LHC on 07/16/21 - needs stent to left main coronary artery For possible transfer to another [facility] for PCI
[2021-07-16 06:05] LABS: Basophils % 0.2 % (0-1.3); Hematocrit 31.6 % (36.0-45.0); Lymphocytes % 4.9 % (15.3-44.8); MPV 8.3 fL (7.6-11.3); RBC Red Blood Cell Count 4.34 M/uL (3.86-4.86)
[2021-07-16 06:10] LABS: Albumin 3.1 g/dL (3.4-5.0); Phosphorus 3.8 mg/dL (2.5-4.9); Potassium 4.2 mmol/L (3.5-5.1)
--- NOTE | 2021-07-16 06:54 | P.PN ---
Subjective Date of Service: 07/16/21 Primary Care Provider: Jordyn ortiz ENVIRONMENTAL COMPLIANCE INSPECTOR Chief Complaint: aspiration pneumonia Subjective: Improving (chest pain yesterday, elevated trop, for cardiac cath this morning. breathing more comfortably today, on 15L NC, no chest pain today, diuresing well) Review of Systems 10-point ROS is otherwise unremarkable Physical Examination - Vital Signs Temperature: 97.6 F Blood Pressure: 129/60 Pulse: 86 Respirations: 19 Pulse Ox (%): 97 Assessment & Plan Physician Review Additional Text: Physical Exam: Gen: alert and oriented x 3, cooperative, pleasant HEENT: EOMI, normal conjunctiva Pulm: diminished with b/l crackles on 15L NC CV: Sinus tachycardia, no edema GI: Soft, nontender, nondistended MSK: no swelling Skin: no rashes Assessment: Dyspnea, hypoxia suspected aspiration pneumonia S/P EGD JENAE secondary to prerenal, secondary to dehydration, poor intake, superimposed with toxic ATN secondary to IV contrast NSTEMI Diabetes mellitus type 2, non insulin dependent Iron deficiency anemia GERD Hypertension CAD status post stents Aortic valve replacement -Continue antibiotics -Patient became more hypoxic on 07/14, CT negative for PE, mild bilateral pleural effusion -Pulmonology consulted, switch Zosyn to Augmentin, started steroids on 07/14 - will dc today -Urine and blood cultures -so far no growth -Patient reports difficulty swallowing over the course of last few months - s/p EGD for dilatation -tolerating diet -wean O2 as needed -placed on BIPAP morning of 07/15 after tachycardia/chest pain episode -Nephrology consulted -increase IV lasix BID to 40mg, henry placed 07/15 for strict i/o's -continue IV iron -Accuchecks and SSI -Telemetry -Cardiology consulted, troponin elevated, NSTEMI - for cardiac cath today DVT PPX: lovenox Code status: Full Dispo: anticipate dc home in ~2-3 days, pending cath results as well Time Spent Managing Pts Care (In Minutes): 35
[2021-07-16] MEDS ORDERED: FUROSEMIDE 40 MG/4 ML VIAL IV ONE (06:58)
[2021-07-16] MEDS: INSULIN -REGULAR HUMAN 50 UNIT/0.5 ML ML SQ SCH ×4 (07:30→20:24)
[2021-07-16 07:49] LABS: Anisocytosis 2+; Blood Morphology Comment NOTED (NOT SEEN); Hypochromasia 1+; Platelet Estimate ADEQ; Polychromasia SLIGHT; White Blood Cell Scan OK (OK)
--- NOTE | 2021-07-16 07:56 | ECHO ---
HEIGHT: 5 ft 2 in WEIGHT: 192 lb 0 oz DATE OF STUDY: 07/15/[address]: Chris Johnson MD 2-DIMENSIONAL: YES M.MODE: YES DOPPLER: YES COLOR FLOW: YES TDS: YES PORTABLE: NO DEFINITY: NO BUBBLE STUDY: NO DIAGNOSIS: CHEST PAIN CARDIAC HISTORY: CATHERIZATION: NO SURGERY: NO PROSTHETIC VALVE: NO PACEMAKER: NO MEASUREMENTS (cm) DIASTOLIC (NORMALS) SYSTOLIC (NORMALS) IVSd 1.1 (0.6-1.2) LA Diam 4.1 (1.9-4.0) LVEF 60% LVIDd 3.9 (3.5-5.7) LVIDs 2.7 (2.0-3.5) %FS 31% LVPWd 1.2 (0.6-1.2) Ao Diam 2.1 (2.0-3.7) 2 DIMENSIONAL ASSESSMENT: RIGHT ATRIUM: NORMAL LEFT ATRIUM: NORMAL RIGHT VENTRICLE: NORMAL LEFT VENTRICLE: NORMAL TRICUSPID VALVE: MITRAL VALVE: PULMONIC VALVE: NORMAL AORTIC VALVE: PERICARDIAL EFFUSION: NONE AORTIC ROOT: NORMAL LEFT VENTRICULAR WALL MOTION: NORMAL DOPPLER/COLOR FLOW: SEE BELOW. COMMENTS: NORMAL LEFT VENTRICULAR EJECTION FRACTION 55-60%. MILD MITRAL AND TRICUSPID REGURGITATION. MILD AORTIC STENOSIS. TECHNOLOGIST: Germania GASPAR
[2021-07-16] MEDS: AMOX/K CLAV 500 MG TAB PO SCH ×2 (09:00→20:32)
[2021-07-16] MEDS: METHYLPREDNISOLONE 125 MG INJ IV SCH (09:00)
[2021-07-16] MEDS ORDERED: FENTANYL CITR 100 MCG/2 ML ONE (09:42)
[2021-07-16] MEDS ORDERED: MIDAZOLAM HCL 2 MG/2 ML INJ ONE (09:42)
[2021-07-16] MEDS ORDERED: NA CHLORIDE 0.9% 0 ML ONE (09:43)
[2021-07-16] MEDS ORDERED: ATROPINE SULF 1 MG/10 ML SYR IV ONE (09:43)
[2021-07-16] MEDS ORDERED: HEPA 1000U/500MLS 1,000 UNIT/500 ML BAG IV ONE (09:45)
[2021-07-16] MEDS ORDERED: ACETYLCYST 20% 4 ML VIAL IH ONE (09:49)
[2021-07-16] MEDS ORDERED: LIDOCAINE 1% 20 ML MDV ONE (10:35)
--- NOTE | 2021-07-16 11:00 | OP ---
Date of Procedure: 07/16/2021 Surgeon: Dionisio Lam MD Manager Benefit: Andrew Thapa. Admitted to Dr. Le on 07/12/2021, brought to the feed mill lab technician today on 07/16/2021 because of history of CAD, TAVR, recent ventricular tachycardia, chest pain, non-STEMI. Procedure In Detail: In the feed mill lab technician, she was prepped and draped in the routine sterile fashion. Gi anival Versed and fentanyl for sedation. Using the Seldinger technique, we put a 6-Welsh sheath in the right common femoral artery. She got 10 cc of xylocaine before that. 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 Catheterization was done using Christopher catheter left an d right. She had a 90% large distal left main, small normal ramus, 99% small circumflex with MENA-1 flow, RCA was dominant. She had a 50% mid RCA, patent distal RCA stent. There were no complications . Blood Loss: 5 mL. Postoperative Diagnosis: Severe coronary artery disease. She has had a TAVR before our consult, Dr. Javier Stuart, who actually put her TAVR in the past. I think this needs to be done at [facility]. I will make an arrangement for that either as an inpatient or outpatient depending on the bed situation and how the patient feels. Again plan for left main stent. Continue present medical t herapy. Anesthesia: Total conscious sedation 45 minutes. ABDIEL/SOURAVL Voice ID: [id number] Report ID: [id number]
--- NOTE | 2021-07-16 11:07 | EKG ---
Test Date: 2021-07-15 Test Time: 08:50:37 Stove Bottom Worker: ARAM MEASUREMENT RESULTS: Intervals: Rate: 134 KS: 104 QRSD: 166 QT: 364 QTc: 543 [place]: P: KS: 104 QRS: -35 T: 113 INTERPRETIVE STATEMENTS: Sinus tachycardia with short KS Left axis deviation Left bundle branch block Abnormal ECG Compared to ECG 07/12/2021 14:59:03 Short KS interval now present Left bundle-branch block now present Sinus rhythm no longer present Ventricular premature complex(es) no longer present Left ventricular hypertrophy no longer present Early repolarization no longer present Myocardial infarct finding no longer present Electronically Signed On 07-16-21 11:05:45 CDT by Dionisio Lam
--- NOTE | 2021-07-16 11:07 | EKG ---
Test Date: 2021-07-15 Test Time: 19:16:47 Casting Tester: AP MEASUREMENT RESULTS: Intervals: Rate: 72 MO: 156 QRSD: 102 QT: 370 QTc: 405 [place]: P: 85 MO: 156 QRS: 8 T: -48 INTERPRETIVE STATEMENTS: Normal sinus rhythm Low voltage QRS Inferior infarct, age undetermined ST & T wave abnormality, consider lateral ischemia Abnormal ECG Compared to ECG 07/12/2021 14:59:03 Low QRS voltage now present ST (T wave) deviation now present Possible ischemia now present Ventricular premature complex(es) no longer present Left-axis deviation no longer present Left ventricular hypertrophy no longer present Early repolarization no longer present Myocardial infarct finding still present Electronically Signed On 07-16-21 11:05:39 CDT by Dionisio Lam
--- NOTE | 2021-07-16 11:07 | EKG ---
Test Date: 2021-07-15 Test Time: 09:02:57 Hairspring Assembler: ARAM MEASUREMENT RESULTS: Intervals: Rate: 117 LA: 156 QRSD: 148 QT: 352 QTc: 491 [place]: P: 70 LA: 156 QRS: -34 T: 128 INTERPRETIVE STATEMENTS: Sinus tachycardia with occasional premature ventricular complexes and fusion complexes Left axis deviation Left bundle branch block Abnormal ECG Compared to ECG 07/15/2021 08:50:37 Fusion complex(es) now present Ventricular premature complex(es) now present Short LA interval no longer present Electronically Signed On 07-16-21 11:05:44 CDT by Dionisio Lam
[2021-07-16] MEDS: SOD FERRIC GLUC COMPLX/SUCROSE 250 MG in NA CHLORIDE 0.9% 250 ML IV SCH (12:17)
[2021-07-16] MEDS ORDERED: FUROSEMIDE 40 MG/4 ML VIAL IV STA (13:24)
[2021-07-16] MEDS: SODIUM BICARB 325 MG TAB PO SCH ×2 (14:07→21:36)
[2021-07-16] MEDS: PANTOPRAZOLE 40MG TABLET PO SCH (17:12)
[2021-07-16] MEDS: ATORVASTATIN 40 MG TAB PO SCH (20:32)
[2021-07-16] MEDS ORDERED: FUROSEMIDE 40 MG/4 ML VIAL IV SCH (21:00)
[2021-07-17] MEDS: METOPROLOL TAR 25 MG TAB PO SCH ×2 (06:16→17:30)
[2021-07-17 06:20] LABS: Magnesium 2.1 mg/dL (1.8-2.4); Phosphorus 2.6 mg/dL (2.5-4.9); Potassium 3.4 mmol/L (3.5-5.1)
[2021-07-17 06:25] LABS: Absolute Lymphocytes (CBC) 1.2 K/uL (0.7-4.9)
[2021-07-17 07:02] LABS: Basophils % 0.4 % (0-1.3); Hematocrit 27.3 % (36.0-45.0); Lymphocytes % 16.4 % (15.3-44.8); MPV 8.3 fL (7.6-11.3); RBC Red Blood Cell Count 3.81 M/uL (3.86-4.86)
[2021-07-17] MEDS: INSULIN -REGULAR HUMAN 50 UNIT/0.5 ML ML SQ SCH ×4 (07:30→21:00)
--- NOTE | 2021-07-17 07:50 | RAD REPORT ---
EXAM DESCRIPTION: Nikky Single View07/17/2021 7:35 am CLINICAL HISTORY: Shortness breath COMPARISON: July 15, 2021 FINDINGS: Bilateral pulmonary opacities have mostly resolved. Additional interstitial lung opacitie s appear chronic The heart is normal size. Small left pleural effusion IMPRESSION: Bilateral pulmonary opacities have mostly resolved
[2021-07-17] MEDS ORDERED: POTASSIUM CL SA 10 MEQ TAB PO ONE ×2 (09:00→22:52)
[2021-07-17] MEDS: ENOXAPARIN 100 MG/ML SYR SQ SCH ×3 (09:00→21:15)
[2021-07-17 10:14] LABS: Anisocytosis 1+; Blood Morphology Comment NOTED (NOT SEEN); Platelet Estimate DECR; Polychromasia 1+; White Blood Cell Scan OK (OK)
[2021-07-17] MEDS: PANTOPRAZOLE 40MG TABLET PO SCH ×2 (10:34→17:30)
[2021-07-17] MEDS: AMOX/K CLAV 500 MG TAB PO SCH (10:34)
[2021-07-17] MEDS: FUROSEMIDE 40 MG TABLET PO SCH ×2 (10:34→17:30)
[2021-07-17] MEDS: ASPIRIN 81 MG CHEWABLE TABLET PO SCH (10:34)
[2021-07-17 10:46] LABS: Vitamin D 1,25-Dihydroxy Total 20 pg/mL (18-72); Vitamin D,1,25-OH2, D2 <8 pg/mL
--- NOTE | 2021-07-17 12:25 | P.PN ---
Subjective Date of Service: 07/17/21 Primary Care Provider: Jordyn ortiz NP Chief Complaint: Respiratory failure Subjective: Improving (Patient is improving doing well oxygen requirements are declining) Review of Systems Respiratory: Shortness of Breath, Hemoptysis Physical Examination - Vital Signs Temperature: 97.2 F Blood Pressure: 118/56 Pulse: 67 Respirations: 16 Pulse Ox (%): 100 - Physical Exam General: Alert, Oriented x3, Cooperative Assessment & Plan - Problems (Diagnosis) (1) Respiratory failure Current Visit: Yes Status: Acute Plan: Patient is improving oxygen requirements are declining chest x-ray is also improved most likely patient has some volume overload she has severe coronary artery disease plan to wean down on the oxygen and discharge discontinue Lovenox as patient is complaining of hemoptysis severe iron deficiency anemia receiving iron infusions most likely patient had congestive heart failure rather than aspiration pneumonia Qualifiers: Chronicity: acute
[2021-07-17] MEDS: SODIUM BICARB 325 MG TAB PO SCH ×2 (13:07→21:15)
--- NOTE | 2021-07-17 16:24 | P.PN ---
Subjective Date of Service: 07/17/21 Primary Care Provider: Jordyn ortiz NP Chief Complaint: Respiratory failure Subjective: Improving (feeling better, breathing easier, eating ok, waiting for transfer to [facility], no chest pain) Review of Systems 10-point ROS is otherwise unremarkable Physical Examination - Vital Signs Temperature: 97.2 F Blood Pressure: 118/56 Pulse: 67 Respirations: 16 Pulse Ox (%): 100 Assessment & Plan Physician Review Additional Text: Physical Exam: Gen: alert and oriented x 3, cooperative, pleasant HEENT: EOMI, normal conjunctiva Pulm: diminished with b/l crackles on 10L NC CV: Sinus tachycardia, no edema GI: Soft, nontender, nondistended MSK: no swelling Skin: no rashes Assessment: Dyspnea, hypoxia witnessed aspiration, suspect aspiration pneumonia S/P EGD JENAE secondary to prerenal/ dehydration, poor intake, superimposed with toxic ATN secondary to IV contrast NSTEMI, LAD stenosis Diabetes mellitus type 2, non insulin dependent Iron deficiency anemia GERD Hypertension CAD status post stents Aortic valve replacement -Continue antibiotics -Patient became more hypoxic on 07/14, CT negative for PE, mild bilateral pleural effusion -Pulmonology consulted, switch Zosyn to Augmentin, briefly on steroids and then discontinued -Urine and blood cultures -so far no growth -Patient reports difficulty swallowing over the course of last few months - s/p EGD for dilatation -tolerating diet -wean O2 as needed -placed on BIPAP morning of 07/15 after tachycardia/chest pain episode -Nephrology consulted -increased IV lasix BID to 40mg, henry placed 07/15 for strict i/o's -continue IV iron -Accuchecks and SSI -Telemetry -Cardiology consulted, troponin elevated, NSTEMI - noted to have LAD stenosis -recommended transfer to tertiary [facility] for CT surgery backup for stent placement. Discussed with patient's supervisor phosphoric acid who accepts the patient DVT PPX: lovenox 1mg/kg BID for ACS Code status: Full Dispo: Awaiting transfer to [facility], pending bed availability Time Spent Managing Pts Care (In Minutes): 35
--- NOTE | 2021-07-17 17:37 | PN ---
Date of Progress Note: 07/17/2021 Chief Complaint: Acute kidney injury secondary to prerenal azotemia, cardiorenal syndrome. The patient underwent cardiac catheterization yesterday. Review of Systems: The patient denies fever or chills. Physical Examination: Lungs: Clear to auscultation bilaterally. Heart: S1, S2. Abdomen: Soft and benign. Extremities: Slight edema. Impression And Plan: 1. Acute kidney injury secondary to prerenal azotemia and nonoliguric acute tubular necrosis. Continue to monitor fluid balance. The patient has Jiang catheter. Serum creatinine level is up to 1.6. The patient has some evidence of contrast nephropathy. Continue adequate hydration. The patient received IV contrast upon the admission when CT scan angiogram was done on July 14 and the patient developed elevated creatinine. Continue IV fluids as needed to prevent contrast-induced nephropathy. 2. Urinary tract infection. Continue antibiotics, active dosing. The patient will continue sodium bicarbonate tablet. 3. History of TAVR secondary to severe aortic stenosis. The patient has pulmonary edema. The patient is currently on Lasix. 4. Nes-RH-[id number] myocardial infarction. The patient underwent cardiac catheterization. Recommendation as per cardiology for a stent to left main coronary artery. DANA/MODNelly Voice ID: [id number] Report ID: [id number] NARAYAN
--- NOTE | 2021-07-17 17:37 | PN ---
Date of Progress Note: 07/17/2021 Ms. Leroy underwent a heart catheterization today because of ventricular tachycardia, chest pain, hi story of CAD, CHF, and elevated troponin. Her catheterization showed a completely occluded circumfle x, which appears to be old. Her RCA showed some nmct-hi-mcwprbnj plaquing. She had about an 80% to 90% distal left main just before the LAD takeoff. I felt uncomfortable doing her case at this hospit al without any surgical backup. I discussed the case with Dr. Johnson and Dr. Stuart who accepted the patient in transfer to [facility]. Transfer is still pending. Overnight, her groin site is okay. She has no complaints of chest pain. She is resting without any oxygen with kimmy rly good saturation. Again, we are awaiting her transfer for left main stent or HUERTA bypass and I wi ll leave that up to Dr. Stuart to decide. Continue present regimen otherwise. I will switch her Lo venox to Plavix. ABDIEL/CRISTINO Voice ID: [id number] Report ID: [id number]
[2021-07-17] MEDS: ATORVASTATIN 40 MG TAB PO SCH (21:15)
[2021-07-18] MEDS: METOPROLOL TAR 25 MG TAB PO SCH ×2 (05:26→17:17)
[2021-07-18 06:18] LABS: Basophils % 0.6 % (0-1.3); Lymphocytes % 14.6 % (15.3-44.8); MPV 8.6 fL (7.6-11.3); RBC Red Blood Cell Count 4.14 M/uL (3.86-4.86)
--- NOTE | 2021-07-18 06:30 | P.PN ---
Subjective Date of Service: 07/18/21 Primary Care Provider: Jordyn ortiz NP Chief Complaint: Respiratory failure Subjective: Improving Review of Systems 10-point ROS is otherwise unremarkable Physical Examination - Vital Signs Temperature: 97.5 F Blood Pressure: 119/64 Pulse: 90 Respirations: 15 Pulse Ox (%): 96 Assessment & Plan Physician Review Additional Text: Physical Exam: Gen: alert and oriented x 3, cooperative, pleasant HEENT: EOMI, normal conjunctiva Pulm: diminished with b/l crackles on 10L NC CV: regular rate/rhythm, no edema GI: Soft, nontender, nondistended MSK: no swelling Skin: no rashes Assessment: Dyspnea, hypoxia witnessed aspiration, suspect aspiration pneumonia S/P EGD JENAE secondary to prerenal/ dehydration, poor intake, superimposed with toxic ATN secondary to IV contrast NSTEMI, left main stenosis Diabetes mellitus type 2, non insulin dependent Iron deficiency anemia GERD Hypertension CAD status post stents Aortic valve replacement -Continue antibiotics -Patient became more hypoxic on 07/14, CT negative for PE, mild bilateral pleural effusion -Pulmonology consulted, switch Zosyn to Augmentin, briefly on steroids and then discontinued -Urine and blood cultures -so far no growth -Patient reports difficulty swallowing over the course of last few months - s/p EGD for dilatation -tolerating diet -wean O2 as needed - O2 sats: 92% goal -placed on BIPAP morning of 07/15 after tachycardia/chest pain episode -Nephrology consulted, -increased IV lasix BID to 40mg, henry placed 07/15 for strict i/o's -continue IV iron -Accuchecks and SSI -Cardiology consulted, troponin elevated, NSTEMI - noted to have left main stenosis -recommended transfer to tertiary care center for CT surgery backup for stent placement. Discussed with patient's special assemblies supervisor who accepts the patient DVT PPX: lovenox 1mg/kg BID for ACS per Dr. Stuart Code status: Full Dispo: Awaiting transfer to [facility], pending bed availability Time Spent Managing Pts Care (In Minutes): 30
[2021-07-18 06:44] LABS: Albumin 3.3 g/dL (3.4-5.0); Phosphorus 3.5 mg/dL (2.5-4.9); Potassium 3.5 mmol/L (3.5-5.1)
[2021-07-18] MEDS: INSULIN -REGULAR HUMAN 50 UNIT/0.5 ML ML SQ SCH ×5 (07:30→20:46)
[2021-07-18] MEDS ORDERED: POTASSIUM CL SA 10 MEQ TAB PO ONE (09:00)
[2021-07-18] MEDS: PANTOPRAZOLE 40MG TABLET PO SCH ×2 (10:15→17:17)
[2021-07-18] MEDS: SODIUM BICARB 325 MG TAB PO SCH ×2 (10:15→20:45)
[2021-07-18] MEDS: FUROSEMIDE 40 MG TABLET PO SCH ×2 (10:15→17:17)
[2021-07-18] MEDS: ENOXAPARIN 100 MG/ML SYR SQ SCH ×2 (10:15→20:45)
[2021-07-18] MEDS: ASPIRIN 81 MG CHEWABLE TABLET PO SCH (10:15)
[2021-07-18] MEDS ORDERED: HEPARIN 500 UNIT/5 ML SYR IV PRN (11:13)
--- NOTE | 2021-07-18 11:28 | PN ---
Ms. Leroy has congestive heart failure, left main stenosis awaiting transfer to [facility] for a l eft main stent versus HUERTA to the LAD. Her circumflex is totally occluded. Her RCA has some mild pl aquing. Dr. Stuart is planning an intervention. We are still awaiting for bed. Mean while she is stable. No chest pain. Oxygen saturation is good, sinus rhythm. Continue her present regimen. I w josephld like to switch her Lovenox to Plavix. ABDIEL/CRISTINO Voice ID: [id number] Report ID: [id number]
[2021-07-18 17:31] VITALS: O2SAT 91
[2021-07-18] MEDS: ATORVASTATIN 40 MG TAB PO SCH (20:45)
--- NOTE | 2021-07-18 21:30 | P.DS ---
Admission Date: 07/12/21 Discharge Date: 07/18/21 Primary Care Provider: Jordyn ortiz NP Disposition: TRANSFER TO [facility] Comment: Transfer to [facility] Discharge Condition: FAIR Reason for Admission: Respiratory failure Consultations: Cardiology: Dr. Lam Nephrology: Dr. Gastelum Pulmonary: Dr. Iqbal Procedures: Medical problem list Dyspnea, hypoxia witnessed aspiration, suspect aspiration pneumonia S/P EGD JENAE secondary to prerenal/ dehydration, poor intake, superimposed with toxic ATN secondary to IV contrast NSTEMI, left main stenosis Diabetes mellitus type 2, non insulin dependent Iron deficiency anemia GERD Hypertension Heart cath 07/16/2021 Surgeon: Dionisio Lam MD Junior Mechanical Engineer: Mr. Andrew Thapa. Admitted to Dr. Le on 07/12/2021, brought to the cardiac cath technologist today on 07/16/2021 because of history of CAD, TAVR, recent ventricular tachycardia, chest pain, non-STEMI. Procedure In Detail: In the cardiac cath technologist, she was prepped and draped in the routine sterile fashion. Given Versed and fentanyl for sedation. Using the Seldinger technique, we put a 6-Ukrainian sheath in the right common femoral artery. She got 10 cc of xylocaine before that. 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 Catheterization was done using Christopher catheter left and right. She had a 90% large distal left main, small normal ramus, 99% small circumflex with MENA-1 flow, RCA was dominant. She had a 50% mid RCA, patent distal RCA stent. There were no complications. Blood Loss: 5 mL. Postoperative Diagnosis: Severe coronary artery disease. She has had a TAVR before our consult, Dr. Javier Stuart, who actually put her TAVR in the past. I think this needs to be done at [facility] at [facility]. I will make an arrangement for that either as an inpatient or outpatient depending on the bed situation and how the patient feels. Again plan for left main stent. Continue present medical therapy. Chest x-ray 07/17/2021 FINDINGS: Bilateral pulmonary opacities have mostly resolved. Additional interstitial lung opacities appear chronic The heart is normal size. Small left pleural effusion IMPRESSION: Bilateral pulmonary opacities have mostly resolved CT chest FINDINGS: Chest Wall: No suspicious thyroid nodules or pathologic lymphadenopathy. Lungs: Widespread ground-glass opacities throughout the left lung and to a lesser extent the right lung base. Pleura: Small effusions, left greater than right. Mediastinum/dejan: No pathologic lymphadenopathy. Pulmonary arteries/Aorta: No filling defect identified. No aortic aneurysm. Heart: No significant pericardial effusion. Normal heart size. Aortic valve prosthesis. Coronary artery calcifications. Upper abdomen: Question left upper pole renal cyst but this is incompletely imaged. Cirrhotic liver morphology. Splenomegaly. Bones: No acute abnormality. IMPRESSION: Negative for pulmonary embolism. Airspace disease which is predominantly left-sided could represent aspiration pneumonitis/pneumonia given the patient's recent procedure. Small bilateral effusions could represent some component of mild edema as well. Renal ultrasound FINDINGS: The right kidney measures 10 cm with a normal echotexture. 1.2 centimeter cyst The left kidney measures 9 centimeters with a normal echotexture. A 5 centimeter hypoechoic mass Hydronephrosis is not seen. No gross abnormality of bladder is seen IMPRESSION: 5 centimeter hypoechoic left renal mass probably a benign complex cyst. A cystic neoplasm can have this appearance but is considered less likely. It is recommended that the patient have a followup ultrasound in 3 months to assess stability. Alternatively patient have a CT scan with and without IV contrast Brief History of Present Illness: 60-year-old female with history of diabetes mellitus type 2, GERD, iron deficiency anemia, CHF, hypertension, CAD and aortic valve replacement presented to the emergency department for shortness of breath. Patient was evaluated at outpatient GI clinic and had EGD performed today, report was that after EGD patient had episode of vomiting/coughing and was witnessed to have aspirated. After aspiration patient noted to be hypoxic with saturations in the seventies on room air. Patient was evaluated in the emergency department labs were significant for hemoglobin 9.3 hematocrit 30.5 creatinine 1.24 GFR 44 glucose 195 BNP 1107 chest x-ray demonstrated mild bilateral interstitial pulmonary opacities which are unchanged suspected to have been chronic. Patient still requiring oxygen, nasal cannula 5 L at this time. Patient was given IV Zosyn in the emergency department, ED provider wishes to admit for further evaluation and management of suspected aspiration pneumonia, hypoxia. Hospital Course: Patient was admitted for aspiration pneumonia after an EGD, noted to have acute kidney injury. Patient was admitted on IV antibiotics, during hospitalization patient developed chest pain and was noted to have NSTEMI, patient with history of, TAVR. Patient had heart catheterization on 07/16/2021 which revealed severe coronary artery disease with history of TAVR cardiology recommends transfer for intervention and CT surgery backup. Patient's cardiology Dr. Stuart was contacted who accepted the patient, this evening we received acceptance from [facility] for transfer for further management of NSTEMI, severe CAD status post TAVR. Vital signs stable at time of transfer, patient currently on nasal cannula 10 L saturating 91% blood pressure 123/60 heart rate 80 temperature 97.2. Appreciate assistance from receiving facility. Medical problem list Dyspnea, hypoxia witnessed aspiration, suspect aspiration pneumonia S/P EGD JENAE secondary to prerenal/ dehydration, poor intake, superimposed with toxic ATN secondary to IV contrast NSTEMI, left main stenosis Diabetes mellitus type 2, non insulin dependent Iron deficiency anemia GERD Hypertension CAD status post stents Aortic valve replacement -Continue antibiotics -Patient became more hypoxic on 07/14, CT negative for PE, mild bilateral pleural effusion -Pulmonology consulted, switch Zosyn to Augmentin, briefly on steroids and then discontinued -Urine and blood cultures -so far no growth -Patient reports difficulty swallowing over the course of last few months - s/p EGD for dilatation -tolerating diet -wean O2 as needed - O2 sats: 92% goal -placed on BIPAP morning of 07/15 after tachycardia/chest pain episode -Nephrology consulted, -increased IV lasix BID to 40mg, henry placed 07/15 for strict i/o's -continue IV iron -Accuchecks and SSI -Cardiology consulted, troponin elevated, NSTEMI - noted to have left main stenosis -recommended transfer to tertiary care center for CT surgery backup for stent placement. Discussed with patient's claims customer service representative who accepts the patient Heart cath 07/16/2021 Surgeon: Dionisio Lam MD Junior Mechanical Engineer: Mr. Andrew Thapa. Admitted to Dr. Le on 07/12/2021, brought to the cardiac cath technologist today on 07/16/2021 because of history of CAD, TAVR, recent ventricular tachycardia, chest pain, non-STEMI. Procedure In Detail: In the cardiac cath technologist, she was prepped and draped in the routine sterile fashion. Given Versed and fentanyl for sedation. Using the Seldinger t echnique, we put a 6-Ukrainian sheath in the right common femoral artery. She got 10 cc of xylocaine before that. 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 Catheterization was done using Christopher catheter left and right. She had a 90% large distal left main, small normal ramus, 99% small circumflex with MENA-1 flow, RCA was dominant. She had a 50% mid RCA, patent distal RCA stent. There were no complications. Blood Loss: 5 mL. Postoperative Diagnosis: Severe coronary artery disease. She has had a TAVR before our consult, Dr. Javier Stuart, who actually put her TAVR in the past. I think this needs to be done at [facility] at [facility]. I will make an arran gement for that either as an inpatient or outpatient depending on the bed situation and how the patient feels. Again plan for left main stent. Continue present medical therapy. Vital Signs/Physical Exam: Temp Pulse Resp BP Pulse Ox 97.2 F 80 16 123/60 100 07/18/21 16:00 07/18/21 17:17 07/18/21 16:00 07/18/21 17:17 07/18/21 16:00 General: Alert, In no apparent distress, Oriented x3 HEENT: Atraumatic, Normocephalic Neck: Supple Respiratory: Diminished Cardiovascular: Normal S1 S2 Capillary refill: <2 Seconds Gastrointestinal: Normal bowel sounds, No tenderness, No masses Musculoskeletal: No clubbing, No contractures Integumentary: No cyanosis Neurological: Normal speech, Normal tone Laboratory Data at Discharge: WBC 7.20 K/uL (4.3-10.9) 07/18/21 05:35 Hgb 9.4 g/dL (12.0-15.0) L 07/18/21 05:35 Hct 30.0 % (36.0-45.0) L 07/18/21 05:35 Plt Count 159 K/uL (152-406) 07/18/21 05:35 PT 12.6 SECONDS (9.5-12.5) H 07/12/21 15:17 INR 1.09 07/12/21 15:17 Sodium 139 mmol/L (136-145) 07/18/21 05:35 Potassium 3.5 mmol/L (3.5-5.1) 07/18/21 05:35 BUN 28 mg/dL (7-18) H 07/18/21 05:35 Creatinine 1.23 mg/dL (0.55-1.3) 07/18/21 05:35 Glucose 149 mg/dL (74-106) H 07/18/21 05:35 Uric Acid 5.5 mg/dL (2.6-6.0) 07/13/21 05:52 Phosphorus 3.5 mg/dL (2.5-4.9) 07/18/21 05:35 Magnesium 2.1 mg/dL (1.8-2.4) 07/17/21 05:38 Total Bilirubin 0.7 mg/dL (0.2-1.0) 07/13/21 05:52 AST 8 U/L (15-37) L 07/13/21 05:52 ALT 12 U/L (12-78) 07/13/21 05:52 Alkaline Phosphatase 107 U/L (45-117) 07/13/21 05:52 Troponin I 13.00 ng/mL (0.0-0.045) H* 07/16/21 01:26 Triglycerides 153 mg/dL (<150) H 07/13/21 05:52 Cholesterol 128 mg/dL (<200) 07/13/21 05:52 HDL Cholesterol 38 mg/dL (40-60) L 07/13/21 05:52 Cholesterol/HDL Ratio 3.37 07/13/21 05:52 Home Medications: Amlodipine Besylate [Norvasc] 1 tab PO BID 12/08/17 Aspirin [Aspir-Low] 1 tab PO DAILY 12/08/17 Atorvastatin Calcium [Lipitor*] 1 tab PO DAILY 12/08/17 Duloxetine HCl [Cymbalta] 1 tab PO DAILY 12/08/17 Ferrous Sulfate 1 tab PO BID 12/08/17 Fluticasone [Flonase 50MCG Nasal [place]*] 2 puff IH DAILY 12/08/17 Irbesartan [Avapro*] 1 tab PO BEDTIME 12/08/17 Metformin HCl 1 tab PO BID 12/08/17 clonazePAM [Klonopin*] 1 tab PO BID 12/08/17 Gabapentin 300 mg PO BEDTIME 07/12/21 Physician Discharge Instructions: Please continue with plan of care at [facility]. Diet: ADA Followup: Razia Ortiz CLINICAL PROJECT LEADER [Primary Care Provider] - Time spent managing pt's care (in minutes): 35
--- NOTE | 2021-07-19 00:46 | PN ---
Date of Progress Note: 07/18/2021 Chief Complaint: Acute kidney injury secondary to prerenal azotemia, cardiorenal syndrome. Patient underwent cardiac catheterization. Renal function has been stable over the last 48 hours. Serum creatinine baseline was up to 1.6. Review of Systems: Denies PND, orthopnea. Physical Examination: Lungs: Clear to auscultation bilaterally. Heart: S1, S2. Abdomen: Soft, benign. Extremities: No edema. Impression And Plan: 1. Acute kidney injury secondary to prerenal azotemia. Monitor renal function for evidence of contrast-induced nephropathy. Continue adequate hydration, avoid nephrotoxic medication. Patient received IV contrast upon admission when the CT scan angiogram was done on July 16. Patient received IV fluids to prevent contrast-induced nephropathy. 2. Urinary tract infection. Continue antibiotics. 3. Mild metabolic acidosis resolved, stop sodium bicarbonate tablets. DANA/CRISTINO Voice ID: [id number] Report ID: [id number] NARAYAN
[2021-07-19 02:50] VITALS: BP 107/63; TEMP 97
== END 2021-07-18 21:34 | disposition short-term general hospital (02) | DRG 205 ==
LOC: ER 14:42 → ERHOLD 18:35 → 2ND 21:32
PROVIDERS: ADMIT Internal Medicine; ATTEND Internal Medicine
PROC: B201YZZ Plain Radiography of Multiple Coronary Arteries using Other Contrast (ICD-10-PCS; principal; 2021-07-16)
DX: J95.89 Other postprocedural complications and disorders of respiratory system, not elsewhere classified (principal); J69.0 Pneumonitis due to inhalation of food and vomit; I21.4 Non-ST elevation (NSTEMI) myocardial infarction; J96.01 Acute respiratory failure with hypoxia; N17.0 Acute kidney failure with tubular necrosis; N39.0 Urinary tract infection, site not specified; R04.2 Hemoptysis; J90 Pleural effusion, not elsewhere classified; I47.2 Ventricular tachycardia; E87.2 Acidosis; E11.9 Type 2 diabetes mellitus without complications; D50.9 Iron deficiency anemia, unspecified; K21.9 Gastro-esophageal reflux disease without esophagitis; I10 Essential (primary) hypertension; I25.10 Atherosclerotic heart disease of native coronary artery without angina pectoris; Z95.5 Presence of coronary angioplasty implant and graft; Z95.2 Presence of prosthetic heart valve; E86.0 Dehydration; R00.8 Other abnormalities of heart beat; K22.2 Esophageal obstruction; N14.1 Nephropathy induced by other drugs, medicaments and biological substances; T50.8X5A Adverse effect of diagnostic agents, initial encounter; I25.82 Chronic total occlusion of coronary artery; Z20.822 Contact with and (suspected) exposure to COVID-19
CPT/HCPCS: 36415; 71045; 71275; 76770; 80048; 80053; 80061; 80069; 80076; 81003; 81015; 82550; 82570; 82652; 82728; 82947; 83540; 83735; 83880; 84132; 84156; 84439; 84443; 84466; 84484; 84550; 85025; 85379; 85610; 87040; 87086; 87088; 93005; 93306; 93454; 94010; 94660; 96365; 97116; 97163; 99285; C1893; J0583; J1644; J1650; J1940; J2250; J2405; J2543; J2916; J2930; J3010; J7030; J7050; Q9967; U0003

== ENCOUNTER 2025-07-09 11:38 | Emergency (ER) | payer OTHER ==
[2025-07-09] MEDS ORDERED: HYDROMORPHONE HCL 1 MG/ML INJ ONE (12:11)
[2025-07-09] MEDS ORDERED: NA CHLORIDE 0.9% 500 ML ONE (12:12)
[2025-07-09] MEDS ORDERED: ONDANSETRON 4 MG/2 ML VIAL ONE (12:12)
[2025-07-09] MEDS ORDERED: NA CHLORIDE 0.9% 1,000 ML ONE (12:12)
[2025-07-09 12:34] LABS: Absolute Lymphocytes (CBC) 1.1 K/uL (0.7-4.9); Hematocrit 43.7 % (36.0-45.0); Hemoglobin 13.7 g/dL (12.0-15.0); MCH 23.5 pg (27.0-35.0); MCHC 31.4 g/dL (32.0-36.0); MCV 74.9 fL (80-100); MPV 8.4 fL (7.6-11.3); Nucleated RBC Absolute Count 0.0 (0-0); Nucleated Red Blood Cells % 0.1 % (0-0); RBC Red Blood Cell Count 5.83 M/uL (3.86-4.86); White Blood Count 11.60 thou/uL (4.3-10.9)
[2025-07-09 12:49] LABS: PT Prothrombin Time 13.2 SECONDS (10-13.0); Protime INR 1.17
--- NOTE | 2025-07-09 12:50 | ER ---
Nurse's Notes [facility] Name: Allie Leroy Age: 64 yrs Sex: Female : 1960 Arrival Date: 07/09/2025 Time: 11:38 Bed 7 Private MD: Diagnosis: Fall on same level, unspecified;Displaced comminuted fracture of shaft of humerus, left arm, initial encounter for closed fracture;Unspecified injury of head, initial encounter;correction (current) use of anticoagulants Presentation: 07/09 11:40 Chief complaint: EMS states: pt slipped and fell in shower, c/o left arm pain. Pt is on jp5 plavix, hit head during fall but negative LOC. Coronavirus screen: At this time, the client does not indicate any symptoms associated with coronavirus-19. Ebola Screen: No symptoms or risks identified at this time. Initial Sepsis Screen: Does the patient meet any 2 criteria? No. Patient's initial sepsis screen is negative. Does the patient have a suspected source of infection? No. Patient's initial sepsis screen is negative. Risk Assessment: Do you want to hurt yourself or someone else? Patient reports no desire to harm self or others. Onset of symptoms was July 09, 2025. 11:40 Method Of Arrival: EMS: [facility] 5 11:40 Acuity: RISHI 3 jp5 Triage Assessment: 11:43 General: Appears in no apparent distress. comfortable, Behavior is calm, cooperative, jp5 appropriate for age. Pain: Complains of pain in left arm Pain currently is 6 out of 10 on a pain scale. 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 - Infectious Disease History:: Denies. - Social history:: Smoking status: unknown. Screenin:45 [facility] ED Fall Risk Assessment (Adult) History of falling in the last 3 months, jp5 including since admission Yes- single mechanical fall (1 pt) Confusion or Disorientation No (0 pts) Intoxicated or Sedated No (0 pts) Impaired Gait No (0 pts) Mobility Assist Device Used No (0 pt) Altered Elimination No (0 pt) Score/Fall Risk Level 0 - 2 = Low Risk Oriented to surroundings, Maintained a safe environment, Educated pt \T\ family on fall prevention, incl call for assistance when getting out of bed, Assessed \T\ reinforced patient's understanding of fall precautions, Provided non-skid footwear, Hourly rounding (assess needs \T\ fall precautionary measures) done. Abuse screen: Denies threats or abuse. Denies injuries from another. Nutritional screening: No deficits noted. Tuberculosis screening: No symptoms or risk factors identified. Primary Survey: 11:42 NO uncontrolled hemorrhage observed. A: The client is awake and alert. The airway is jp5 patent. The client is alert. Airway: patent. Breathing/Chest: Spontaneous respiratory effort, equal unlabored respirations, breath sounds clear bilaterally, regular pattern, symmetrical chest rise and fall. Circulation: No external hemorrhage present. Regular and strong central pulse, skin warm/dry/normal color. Disability Client is alert. Exposure/Environment: A warming method has been applied: A warm blanket has been provided to the patient. Secondary Survey: 11:47 HEENT: No deficits noted. Gastrointestinal: No deficits noted. : No deficits noted. jp5 Musculoskeletal: Reports pain in left arm. Assessment: 11:45 General: VIEW TRIAGE. jp5 15:04 Reassessment: Report called to [facility] ED, awaiting EMS for transport. ph Vital Signs: 11:40 BP 120 / 64; Pulse 90; Resp 18; Temp 98; Pulse Ox 95% on R/A; Weight 86.18 kg; Height 5 jp5 ft. 5 in. ; 12:30 BP 146 / 74; Pulse 90; Resp 18; Pulse Ox 92% on 2 lpm NC; jp5 13:30 BP 146 / 74; Pulse 111; Resp 18; Pulse Ox 94% on 2 lpm NC; ph 14:30 BP 125 / 80; Pulse 94; Resp 18; Pulse Ox 95% on 2 lpm NC; ph 11:40 Body Mass Index 31.62 (86.18 kg, 165.1 cm) jp5 [employer] Coma Score: 11:45 Eye Response: spontaneous(4). Motor Response: obeys commands(6). Verbal Response: jp5 oriented(5). Total: 15. 12:42 Eye Response: spontaneous(4). Motor Response: obeys commands(6). Verbal Response: lisa oriented(5). Total: 15. Trauma Score (Adult): 11:45 Eye Response: spontaneous(1); Verbal Response: oriented(1); Motor Response: obeys jp5 commands(2); Systolic BP: > 89 mm Hg(4); Respiratory Rate: 10 to 29 per min(4); [employer] Score: 15; Trauma Score: 12 ED Course: 11:39 Patient arrived in ED. jp5 11:40 Balta Varela MD is Attending Physician. lisa 11:42 Triage completed. jp5 11:45 Patient has correct armband on for positive identification. Bed in low position. Call jp5 light in reach. Side rails up X 1. Provided Education on: CALL LIGHT. 11:45 No provider procedures requiring assistance completed. jp5 11:45 Maintain EMS IV. Dressing intact. Good blood return noted. Site clean \T\ dry. Gauge \T\ clayton 5 site: 20G right AC. Flushed with 10 mL NS IV is patent, is intact. 12:20 Chest Abd Pelvis Wo Con In Process Unspecified. EDMS 12:20 Head C Spine Mpr Wo Con In Process Unspecified. EDMS 12:26 Basic Metabolic Panel Sent. jp5 12:26 CBC with Diff Sent. jp5 12:26 LFT's Sent. jp5 12:26 Magnesium Sent. jp5 12:26 NT PRO-BNP Sent. jp5 12:26 Troponin HS Sent. jp5 12:26 PT-INR Sent. jp5 12:27 transfer to [facility] initiated by Dr Varela. bd 12:27 EKG done, by ED staff, reviewed by Balta Varela MD. jp5 12:28 Chiqui Huang, RN is Primary Nurse. ph 12:35 pt accepted in transfer to [facility] ER by Dr Heredia, admin approval given by Maddie Rincon bd 12:42 UA Rfx Torrey Cult if indicated Sent. jp5 13:39 XRAY Chest (1 view) In Process Unspecified. EDMS 13:39 Humerus Left XRAY In Process Unspecified. EDMS 14:28 Orthoglass splint: posterior long arm splint applied to the left arm. ph Administered Medications: 12:25 Drug: HYDROmorphone IVP 1 mg IVP once Route: IVP; Site: right antecubital; jp5 13:00 Follow up: Response: No adverse reaction ph 12:26 Drug: NS 0.9% IV 500 ml 500 ml IV at 1 bolus once; to be given as a bolus over 30 jp5 minutes Volume: 500 ml; Route: IV; Rate: 1 bolus; Site: right antecubital; 12:56 Follow up: Response: No adverse reaction; IV Status: Completed infusion; IV Intake: jp5 500ml 12:26 Drug: Ondansetron IVP 8 mg IVP once; over 2 minutes Route: IVP; Site: right antecubital;jp5 13:00 Follow up: Response: No adverse reaction ph 14:32 Drug: NS 0.9% IV 1000 ml IV at 125 ml/hr once; to be given as a bolus over 60 minutes jp5 Route: IV; Rate: 125 ml/hr; Site: right antecubital; 15:00 Follow up: Response: No adverse reaction; IV Status: Infusion continued upon transfer ph Medication: 11:45 VIS not applicable for this client. jp5 Intake: 11:45 PO: 0ml; IV: 0ml; Tubes: 0ml (); Total: 0ml. jp5 12:56 IV: 500ml; Total: 500ml. jp5 Output: 11:45 Urine: 0ml; Gastric: 0ml; Stool: 0; EBL: 0ml; Drainage: 0ml; Other: 0; Total: 0ml. jp5 Outcome: 12:49 ER care complete, transfer ordered by MD. gonzalez 15:37 Transferred by ground EMS [facility] to other acute care facility: [facility] . jp5 Transfer form completed. X-rays sent w/ patient. 15:37 Condition: improved 15:37 Instructed on the need for transfer, 15:38 Patient left the ED. jp5 Signatures: Dispatcher [employer] EDMS Anna Escobar Corey, MD MD cha Hall, Patricia, OSVALDO RN Neetu Cardoso RN RN jp5
--- NOTE | 2025-07-09 12:50 | EDPHYS ---
Physician Documentation [facility] Name: Allie Leroy Age: 64 yrs Sex: Female : 1960 Arrival Date: 07/09/2025 Time: 11:38 Bed 7 Private MD: ED Physician Balta Varela HPI: 07/09 12:40 This 64 yrs old Female presents to ER via EMS with complaints of Fall Injury. lisa 12:40 Details of fall: The patient fell from an upright position, while walking. Onset: The lisa symptoms/episode began/occurred just prior to arrival. Associated injuries: The patient sustained injury to the head, left bicep and left tricep, decreased range of motion, hematoma, obvious fracture, painful injury, swelling. Severity of symptoms: At their worst the symptoms were moderate, in the emergency department the symptoms are unchanged. The patient has not experienced similar symptoms in the past. 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 - Infectious Disease History:: Denies. - Social history:: Smoking status: unknown. ROS: 12:41 Constitutional: Negative for fever, chills, and weight loss, Eyes: Negative for injury, lisa pain, redness, and discharge, ENT: Negative for injury, pain, and discharge, Neck: Negative for injury, pain, and swelling, Cardiovascular: Negative for chest pain, palpitations, and edema, Respiratory: Negative for shortness of breath, cough, wheezing, and pleuritic chest pain, Abdomen/GI: Negative for abdominal pain, nausea, vomiting, diarrhea, and constipation, Back: Negative for injury and pain, : Negative for injury, bleeding, discharge, and swelling, Skin: Negative for injury, rash, and discoloration, Psych: Negative for depression, anxiety, suicide ideation, homicidal ideation, and hallucinations, Allergy/Immunology: Negative for hives, rash, and allergies, Endocrine: Negative for neck swelling, polydipsia, polyuria, polyphagia, and marked weight changes, Hematologic/Lymphatic: Negative for swollen nodes, abnormal bleeding, and unusual bruising, 12:41 MS/extremity: Positive for injury or acute deformity, contusion, decreased range of motion, pain, swelling, tenderness, of the left bicep and left tricep, Exam: 12:44 Constitutional: This is a well developed, well nourished patient who is awake, alert, lisa and in no acute distress. Eyes: Pupils equal round and reactive to light, extra-ocular motions intact. Lids and lashes normal. Conjunctiva and sclera are non-icteric and not injected. Cornea within normal limits. Periorbital areas with no swelling, redness, or edema. ENT: Nares patent. No nasal discharge, no septal abnormalities noted. Tympanic membranes are normal and external auditory canals are clear. Oropharynx with no redness, swelling, or masses, exudates, or evidence of obstruction, uvula midline. Mucous membranes moist. Neck: Trachea midline, no thyromegaly or masses palpated, and no cervical lymphadenopathy. Supple, full range of motion without nuchal rigidity, or vertebral point tenderness. No Meningismus. Chest/axilla: Normal chest wall appearance and motion. Nontender with no deformity. No lesions are appreciated. Cardiovascular: Regular rate and rhythm with a normal S1 and S2. No gallops, murmurs, or rubs. Normal PMI, no JVD. No pulse deficits. Respiratory: Lungs have equal breath sounds bilaterally, clear to auscultation and percussion. No rales, rhonchi or wheezes noted. No increased work of breathing, no retractions or nasal flaring. Abdomen/GI: Soft, non-tender, with normal bowel sounds. No distension or tympany. No guarding or rebound. No evidence of tenderness throughout. Back: No spinal tenderness. No costovertebral tenderness. Full range of motion. Female : Normal external genitalia. Skin: Warm, dry with normal turgor. Normal color with no rashes, no lesions, and no evidence of cellulitis. Neuro: Awake and alert, GCS 15, oriented to person, place, time, and situation. Cranial nerves II-XII grossly intact. Motor strength 5/5 in all extremities. Sensory grossly intact. Cerebellar exam normal. Normal gait. Psych: Awake, alert, with orientation to person, place and time. Behavior, mood, and affect are within normal limits. 12:44 Head/face: Noted is contusion, swelling, that is mild, of the left side of the back of head, left occipital area, left base of the skull, right side of the back of head, right occipital area and right base of the skull, 12:44 ECG was reviewed by the Attending Physician. Vital Signs: 11:40 BP 120 / 64; Pulse 90; Resp 18; Temp 98; Pulse Ox 95% on R/A; Weight 86.18 kg; Height 5 jp5 ft. 5 in. ; 12:30 BP 146 / 74; Pulse 90; Resp 18; Pulse Ox 92% on 2 lpm NC; jp5 13:30 BP 146 / 74; Pulse 111; Resp 18; Pulse Ox 94% on 2 lpm NC; ph 14:30 BP 125 / 80; Pulse 94; Resp 18; Pulse Ox 95% on 2 lpm NC; ph 11:40 Body Mass Index 31.62 (86.18 kg, 165.1 cm) jp5 Bettie Coma Score: 11:45 Eye Response: spontaneous(4). Motor Response: obeys commands(6). Verbal Response: jp5 oriented(5). Total: 15. 12:42 Eye Response: spontaneous(4). Motor Response: obeys commands(6). Verbal Response: lisa oriented(5). Total: 15. Trauma Score (Adult): 11:45 Eye Response: spontaneous(1); Verbal Response: oriented(1); Motor Response: obeys jp5 commands(2); Systolic BP: > 89 mm Hg(4); Respiratory Rate: 10 to 29 per min(4); Bettie Score: 15; Trauma Score: 12 MDM: 11:40 Medical Screening Exam initiated lisa 12:42 Differential diagnosis: Contusion of Hematoma on Concussion without LOC. cerebral lisa contusion, Anterior dislocation with fracture, Anterior dislocation without fracture, Posterior dislocation with fracture, Posterior dislocation without fracture, humeral head fracture, glenoid fracture, DJD, tendonitis. Differential Diagnosis altered mental status, sepsis, flu. Differential diagnosis: abrasion, closed head injury, contusion, fracture, laceration, multiple trauma, sprain, strain. Data reviewed: vital signs, nurses notes, EMS record, lab test result(s), EKG, radiologic studies, CT scan, plain films. Consideration of Admission/Observation Escalation of care including admission/observation considered. I considered the following discharge prescriptions or medication management in the emergency department Medications were administered in the Emergency Department. See MAR. Independent interpretation of the following test(s) in the Emergency Department EKG: See my EKG interpretation above. Test considered but Not performed: Ultrasound no fast exam. Historians other than the Patient: EMS: ems well informed. Care significantly affected by the following chronic conditions: Diabetes, Hypertension, Congestive Heart Failure, Obesity, anemia, aortic problem,stents x 2 . 12:49 ED course: trauma, head injury , on asa , plavix , mid shaft humerus, [facility] , will transfer to [place]. 07/09 12:03 Order name: Basic Metabolic Panel [facility] 07/09 12:03 Order name: CBC with Diff; Complete Time: 12:40 [facility] 07/09 12:03 Order name: LFT's [facility] 07/09 12:03 Order name: Magnesium [facility] 07/09 12:03 Order name: NT PRO-BNP [facility] 07/09 12:03 Order name: PT-INR [facility] 07/09 12:03 Order name: Troponin HS [facility] 07/09 12:03 Order name: UA Rfx Torrey Cult if indicated [facility] 07/09 12:57 Order name: Urine Culture [facility] 07/09 12:03 Order name: XRAY Chest (1 view) [facility] 07/09 12:03 Order name: Humerus Left XRAY [facility] 07/09 12:10 Order name: Chest Abd Pelvis Wo Con [facility] 07/09 12:10 Order name: Head C Spine Mpr Wo Con [facility] 07/09 12:03 Order name: Cardiac monitoring; Complete Time: 12: [facility] 07/09 12:03 Order name: EKG - Nurse/Tech; Complete Time: 12:26 [facility] 07/09 12:03 Order name: IV Saline Lock; Complete Time: 12: [facility] 07/09 12:03 Order name: Labs collected and sent; Complete Time: 12: [facility] 07/09 12:03 Order name: O2 Per Protocol; Complete Time: 12: [facility] 07/09 12:03 Order name: O2 Sat Monitoring; Complete Time: 12: [facility] 07/09 12:03 Order name: Splint - Elbow - Posterior; Complete Time: 15:20 [facility] 07/09 12:03 Order name: NPO; Complete Time: 12:28 [facility] EC:44 Rate is 93 beats/min. Rhythm is regular. QRS Sherman is Normal. NM interval is normal. QRS lisa interval is normal. QT interval is normal. No Q waves. T waves are Normal. No ST changes noted. Clinical impression: Abnormal EKG without significant change and No evidence of ischemia. Interpreted by me. Reviewed by me. Administered Medications: 12:25 Drug: HYDROmorphone IVP 1 mg IVP once Route: IVP; Site: right antecubital; jp5 13:00 Follow up: Response: No adverse reaction ph 12:26 Drug: NS 0.9% IV 500 ml 500 ml IV at 1 bolus once; to be given as a bolus over 30 jp5 minutes Volume: 500 ml; Route: IV; Rate: 1 bolus; Site: right antecubital; 12:56 Follow up: Response: No adverse reaction; IV Status: Completed infusion; IV Intake: jp5 500ml 12:26 Drug: Ondansetron IVP 8 mg IVP once; over 2 minutes Route: IVP; Site: right antecubital;jp5 13:00 Follow up: Response: No adverse reaction ph 14:32 Drug: NS 0.9% IV 1000 ml IV at 125 ml/hr once; to be given as a bolus over 60 minutes jp5 Route: IV; Rate: 125 ml/hr; Site: right antecubital; 15:00 Follow up: Response: No adverse reaction; IV Status: Infusion continued upon transfer ph Disposition Summary: 07/09/25 12:49 Transfer Ordered Notes: Transfer Location: [facility] lisa Reason: Higher level of care lisa Condition: Fair lisa Problem: new lisa Symptoms: have improved lisa Accepting Physician: [facility] trauma(07/09/25 15:38) jp5 Diagnosis - Fall on same level, unspecified lisa - Displaced comminuted fracture of shaft of humerus, left arm, initial encounter for lisa closed fracture - Unspecified injury of head, initial encounter 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 EDAR EDMS 12:03 12:03 CBC+H.LAB.BRZ ordered. EDMS EDMS 12: 12:03 HEPATIC FUNCTION+C.LAB.BRZ ordered. EDMS EDMS 12: 12:03 MAGNESIUM+C.LAB.BRZ ordered. EDMS EDMS 12: 12:03 PROBNP+C.LAB.BRZ ordered. EDMS EDMS 12: 12:03 PROTIME (+INR)+COAG.LAB.BRZ ordered. EDMS EDMS 12: 12:03 Troponin High Sensitivity+C.LAB.BRZ ordered. EDMS EDMS 12: 12:03 UA Rfx Torrey Cult if indicated+U.LAB.BRZ ordered. EDMS EDMS 12: 12:03 Chest Single View+RAD.RAD.BRZ ordered. EDMS EDMS 12: 12:04 Head C Spine Cap Wo Con+CT.RAD.BRZ ordered. EDMS EDMS 12: 12:04 Humerus Left+RAD.RAD.BRZ ordered. EDMS EDMS 15:38 12:49 to minal trauma [facility] jp5
[2025-07-09 12:53] LABS: Sqamous Epithelial <5 /HPF (None Seen); Urine Culture Reflex Order REFLEXED; Urine Microscopic Reflex YN ORDER UMIC
[2025-07-09 12:56] LABS: ALT/SGPT 48.0 U/L (13-56); AST/SGOT 39.0 U/L (15-37); Albumin 3.1 g/dL (3.4-5.0); Albumin/Globulin Ratio 0.7 (1.1-1.8); Alkaline Phosphatase 128.0 U/L (45-117); Anion Gap 11.4 mEq/L (5.0-15.0); BUN Blood Urea Nitrogen 34.0 mg/dL (7-18); Bilirubin Indirect, Calculated 0.4 mg/dL (0.2-0.8); Globulin 4.4 g/dL (2.3-3.5); Glucose Level 233.0 mg/dL (74-106); Magnesium 2.3 mg/dL (1.6-2.4); NT PRO-BNP 198.0 pg/mL (<125); Potassium 4.4 mEq/L (3.5-5.1); Troponin High Sensitivity 10.7 pg/mL (<58.9)
--- NOTE | 2025-07-09 13:09 | RAD REPORT ---
EXAM: CT CHEST, ABDOMEN AND PELVIS WITHOUT CONTRAST CLINICAL INDICATION: Female, 64 years old. [facility] pain, fall TECHNIQUE: CT chest, abdomen and pelvis was performed, without IV contrast, as per department protoco l. Axial, sagittal and coronal reconstructions were obtained. One or more of the following dose reduction techniques were used: Automated exposure control, adjustment of the mA and/or kV according to the patient size, and/or iterative reconstruction. Unless otherwise specified, incidental findings do not require dedicated imaging follow-up. COMPARISON: CT chest 07/14/2020 FINDINGS: The lack of intravenous contrast limits the sensitivity of this exam for evaluation of solid visceral organs, vascular structures, and retroperitoneum. Chest: LOWER NECK/CHEST WALL: Visualized thyroid gland and soft tissues are normal. LUNGS AND AIRWAYS: Airways are clear. No evidence of airspace or interstitial process. Calcified 6 mm peripheral right upper lobe subpleural granuloma. No suspicious nodules. Elevation of the right hemidiaphragm again noted. PLEURA: No pleural effusion. No pneumothorax. Hemidiaphragms are normally positioned. MEDIASTINUM AND LYMPH NODES: No mediastinal mass or fluid collection. Normal size mediastinal, hilar, and axillary lymph nodes. Calcified right paratracheal lymph nodes, suggestive of sequelae of remote granulomatous infection. THORACIC AORTA: Normal caliber and configuration. PULMONARY ARTERIES: Normal caliber. HEART: Unremarkable. Abdomen/Pelvis LIVER: Normal in size. Nodular contour of the left lobe hypertrophy again seen.. No focal lesion. GALLBLADDER/BILE DUCTS: No biliary ductal dilatation. PANCREAS: No mass, ductal dilation, or arpita-pancreatic fluid. SPLEEN: Numerous punctate calcific foci again seen. Is normal in size.. No focal lesion. ADRENALS: Normal; no mass. KIDNEYS AND URETERS: Normal size and contour apart from stable dominant exophytic right upper pole 7. 2 cm cyst with marginal calcifications along its caudal component. Synthetic right 5.1 cm cyst also stable. No hydronephrosis. GASTROINTESTINAL TRACT: Stomach is non-dilated. Small bowel has normal course and caliber. No colonic wall thickening or pericolonic inflammatory changes. PERITONEUM: No free fluid. LYMPH NODES: No lymphadenopathy. ABDOMINAL AORTA AND OTHER VESSELS: Normal caliber aorta and IVC. URINARY BLADDER: Normal contour. REPRODUCTIVE ORGANS: No pathologic process. MUSCULOSKELETAL: No acute or suspicious osseous abnormality. ADDITIONAL FINDINGS: None IMPRESSION: No acute or traumatic abnormalities in the chest, abdomen, or pelvis. Stable findings including nodular contour of the liver suggesting cirrhosis, and bilateral large tati l cysts.
--- NOTE | 2025-07-09 13:20 | RAD REPORT ---
EXAM: CT brain without contrast HISTORY: pain, fall COMPARISON: None TECHNIQUE: Multiple contiguous axial images were obtained and a CT of the brain without contrast. Sag ittal and coronal reformats were performed. FINDINGS: No evidence of hydrocephalus, intracranial hemorrhage, or extra-axial fluid collection. Small focus of near CSF density in the right basal ganglia region, axial image 16, could represent a prominent perivascular space versus lacunar infarct of indeterminate age. Another small right superior cerebellar folia or focus of near CSF density could represent a small remote infarct. The br ain is otherwise normal in morphology. The calvarium is intact. The visualized paranasal sinuses and mastoid air cells are essentially clear . IMPRESSION: No evidence of acute intracranial hemorrhage or territorial infarct. Indeterminate right basal ganglia focus of near CSF density, could represent a prominent perivascular space versus lacunar infarct of indeterminate age. If there is concern for acute ischemia, additional evaluation by MRI with provide improved assessment. EXAM: CT of the cervical spine without contrast HISTORY: pain, fall COMPARISON: None TECHNIQUE: Multiple contiguous axial images were obtained in a CT of the cervical spine without contr ast. Sagittal and coronal reformats were performed. FINDINGS: The vertebral bodies demonstrate normal height and alignment. No evidence of acute fracture or subluxation.. Mild multilevel degenerative changes are present. No prevertebral soft tissue swelling is seen. The posterior facets are well aligned. Normal alignment of the skull base with the cervical spine is seen. The lung apices are unremarkable. IMPRESSION: No evidence of acute osseous abnormality of the cervical spine.
--- NOTE | 2025-07-09 14:02 | RAD REPORT ---
Exam:Humerus Left CLINICAL HISTORY: Left arm pain FINDINGS: Markedly displaced spiral fracture mid left humerus.
--- NOTE | 2025-07-09 14:02 | RAD REPORT ---
Procedure: Chest Single View HISTORY: Cough COMPARISON: 2020 FINDINGS: The lungs appear clear of acute infiltrate.. Calcified granuloma right lung No significant pleural effusion noted. The heart is normal size. IMPRESSION: No acute abnormality is displayed.
[2025-07-09 19:10] VITALS: TEMP 98
[2025-07-09 19:16] VITALS: BP 125/80; O2SAT 95
== END 2025-07-09 15:38 | disposition short-term general hospital (02) ==
LOC: ER 11:38
PROC: 2W39X1Z Immobilization of Left Upper Extremity using Splint (ICD-10-PCS; principal; 2025-07-09)
DX: S42.352A Displaced comminuted fracture of shaft of humerus, left arm, initial encounter for closed fracture (principal); S00.83XA Contusion of other part of head, initial encounter; W18.30XA Fall on same level, unspecified, initial encounter; Z79.01 Long term (current) use of anticoagulants; Z95.818 Presence of other cardiac implants and grafts
CPT/HCPCS: 87088; 85025; 81001; 87086; 80048; 36415; 83735; 85610; 80076; 84484; 83880; 70450; 71250; 72125; 74176; 71045; 73060; 29105; J1171; J2405; J7040; J7030; 93005